=== PATIENT | male | born 1945 | race Caucasian/White ===

== ENCOUNTER → 2017-09-13 13:14 | Outpatient (CLI) | payer MEDICARE, SELFPAY ==
[2017-09-13 16:23] LABS: Absolute Neutrophil Count 2.1 X10^3/uL (2.0-7.7); Basophil# 0.02 X10^3/uL; Basophil% 0.5 % (0-1); Eosinophil# 0.11 X10^3/uL; Eosinophils% 2.6 % (0-5); Hematocrit 39.1 % (40-54); Lymphocyte % 36.1 % (19-41); Mean Corp Hgb Conc 33.2 g/gl (32-36); Mean Corpuscular Hgb 31.4 pg (27.0-32.0); Mean Corpuscular Volume 94.4 fL (80-94); Mean Platelet Vol. 10.9 fl (6.2-12.0); Monocyte# 0.45 X10^3/uL; Monocyte% 10.8 % (0-10); Neutrophil # 2.06 X10^3/uL (2.7-7.7); Neutrophil % 49.5 % (47-70); Platelet Count 165 K/mm3 (150-450); RBC Distribution Width SD 43.6 fl (35.1-43.9); Red Blood Count 4.14 M/mm3 (4.6-6.2); White Blood Count 4.2 K/mm3 (4.4-11.0)
[2017-09-13 16:32] LABS: POSITIVE COUNT NO; POSITIVE DIFFERENTIAL NO; POSITIVE MORPHOLOGY NO
[2017-09-13 16:43] LABS: AST(SGOT) 24 U/L (15-37); Alanine Aminotransfer ALT/SGPT 42 U/L (16-61); Albumin, Serum 3.7 g/dL (3.2-5.0); Alkaline Phosphatase 75 U/L (45-117); Anion Gap 9 (5-15); BUN 18 mg/dL (7-18); BUN/Creat Ratio 19.4 RATIO (10-20); Calcium,Total 8.8 mg/dL (8.5-10.1); Chloride 104 mmol/L (98-107); Creatinine, Serum 0.93 mg/dL (0.70-1.30); EST Glomerular Filtration Rate 86 mL/min (>60); Est Glom Filt Rate - Afr Amer 104 mL/min (>60); Globulin 3.6 g/dL (2.2-4.2); Glucose 85 mg/dL (74-106); Potassium 3.6 mmol/L (3.5-5.1); Protein, Total 7.3 g/dL (6.4-8.2); Sodium Level 140 mmol/L (136-145)
== END ==
PROVIDERS: Family Provider Family Medicine; PCP Family Medicine; Visit Provider Internal Medicine Rheumatology
DX: M06.012 Rheumatoid arthritis without rheumatoid factor, left shoulder (principal); M15.9 Polyosteoarthritis, unspecified; G56.01 Carpal tunnel syndrome, right upper limb; I48.0 Paroxysmal atrial fibrillation; M47.892 Other spondylosis, cervical region; M47.897 Other spondylosis, lumbosacral region; I87.2 Venous insufficiency (chronic) (peripheral); K21.9 Gastro-esophageal reflux disease without esophagitis; Z79.899 Other long term (current) drug therapy
CPT/HCPCS: 36415; 80053; 85025

== ENCOUNTER → 2017-12-07 11:22 | Outpatient (CLI) | payer MEDICARE, SELFPAY ==
[2017-12-07 14:11] LABS: Absolute Lymphocyte Count 1.62 X10^3/ul (0.83-4.51); Absolute Neutrophil Count 1.7 X10^3/uL (2.0-7.7); Basophil# 0.03 X10^3/uL; Basophil% 0.7 % (0-1); Eosinophil# 0.13 X10^3/uL; Eosinophils% 3.2 % (0-5); Hematocrit 38.4 % (40-54); Hemoglobin 12.5 g/dl (13.0-16.5); Lymphocyte # 1.62 X10^3/ul (4.0); Lymphocyte % 39.9 % (19-41); Mean Corp Hgb Conc 32.6 g/gl (32-36); Mean Corpuscular Hgb 30.3 pg (27.0-32.0); Mean Corpuscular Volume 93.2 fL (80-94); Monocyte# 0.58 X10^3/uL; Monocyte% 14.3 % (0-10); Neutrophil # 1.68 X10^3/uL (2.7-7.7); Neutrophil % 41.4 % (47-70); Platelet Count 185 K/mm3 (150-450); RBC Distribution Width CV 15.1 % (11.6-14.6); RBC Distribution Width SD 51.5 fl (35.1-43.9); Red Blood Count 4.12 M/mm3 (4.6-6.2); White Blood Count 4.1 K/mm3 (4.4-11.0)
[2017-12-07 14:12] LABS: POSITIVE COUNT NO; POSITIVE DIFFERENTIAL NO; POSITIVE MORPHOLOGY NO
[2017-12-07 14:34] LABS: ALB/GLOB Ratio 0.8 RATIO (0.9-2.4); AST(SGOT) 26 U/L (15-37); Alanine Aminotransfer ALT/SGPT 38 U/L (16-61); Albumin, Serum 3.4 g/dL (3.2-5.0); Alkaline Phosphatase 68 U/L (45-117); Anion Gap 9 (5-15); BUN 27 mg/dL (7-18); BUN/Creat Ratio 23.1 RATIO (10-20); Chloride 105 mmol/L (98-107); Creatinine, Serum 1.17 mg/dL (0.70-1.30); EST Glomerular Filtration Rate 65 mL/min (>60); Est Glom Filt Rate - Afr Amer 79 mL/min (>60); Globulin 4.4 g/dL (2.2-4.2); Glucose 113 mg/dL (74-106); Potassium 3.9 mmol/L (3.5-5.1); Protein, Total 7.8 g/dL (6.4-8.2); Sodium Level 139 mmol/L (136-145)
== END ==
PROVIDERS: Family Provider Family Medicine; PCP Family Medicine; Visit Provider Internal Medicine Rheumatology
DX: M06.00 Rheumatoid arthritis without rheumatoid factor, unspecified site (principal); G56.01 Carpal tunnel syndrome, right upper limb; I48.0 Paroxysmal atrial fibrillation; M47.892 Other spondylosis, cervical region; M47.897 Other spondylosis, lumbosacral region; I87.2 Venous insufficiency (chronic) (peripheral); M15.9 Polyosteoarthritis, unspecified; K21.9 Gastro-esophageal reflux disease without esophagitis; Z79.899 Other long term (current) drug therapy
CPT/HCPCS: 36415; 80053; 85025

== ENCOUNTER → 2018-02-24 11:19 | Outpatient (CLI) | payer MEDICARE, SELFPAY ==
[2018-02-24 14:30] LABS: Absolute Lymphocyte Count 1.51 X10^3/ul (0.83-4.51); Absolute Neutrophil Count 1.8 X10^3/uL (2.0-7.7); Basophil# 0.01 X10^3/uL; Basophil% 0.3 % (0-1); Eosinophil# 0.15 X10^3/uL; Eosinophils% 3.9 % (0-5); Hemoglobin 13.6 g/dl (13.0-16.5); Lymphocyte # 1.51 X10^3/ul (4.0); Lymphocyte % 39.1 % (19-41); Mean Corpuscular Hgb 32.8 pg (27.0-32.0); Mean Corpuscular Volume 96.4 fL (80-94); Mean Platelet Vol. 10.7 fl (6.2-12.0); Monocyte# 0.35 X10^3/uL; Monocyte% 9.1 % (0-10); Neutrophil % 46.6 % (47-70); POSITIVE COUNT NO; POSITIVE DIFFERENTIAL NO; POSITIVE MORPHOLOGY NO; Platelet Count 151 K/mm3 (150-450); RBC Distribution Width CV 13.8 % (11.6-14.6); RBC Distribution Width SD 46.7 fl (35.1-43.9); Red Blood Count 4.15 M/mm3 (4.6-6.2); White Blood Count 3.9 K/mm3 (4.4-11.0)
[2018-02-24 14:42] LABS: ALB/GLOB Ratio 0.9 RATIO (0.9-2.4); AST(SGOT) 32 U/L (15-37); Alanine Aminotransfer ALT/SGPT 44 U/L (16-61); Albumin, Serum 3.5 g/dL (3.2-5.0); Alkaline Phosphatase 59 U/L (45-117); Anion Gap 9 (5-15); BUN 21 mg/dL (7-18); BUN/Creat Ratio 21.1 RATIO (10-20); Calcium,Total 8.5 mg/dL (8.5-10.1); Chloride 108 mmol/L (98-107); Cholesterol 162 mg/dL (200); EST Glomerular Filtration Rate 79 mL/min (>60); Est Glom Filt Rate - Afr Amer 95 mL/min (>60); Globulin 4.1 g/dL (2.2-4.2); Glucose 110 mg/dL (74-106); High Density Lipoprotein 31 mg/dL; Potassium 3.9 mmol/L (3.5-5.1); Protein, Total 7.6 g/dL (6.4-8.2); Sodium Level 143 mmol/L (136-145); Triglycerides 147 mg/dL; Very Low Density Lipoprotein 29 mg/dL (5-40)
== END ==
PROVIDERS: Family Provider Family Medicine; PCP Family Medicine; Visit Provider Internal Medicine Rheumatology
DX: I10 Essential (primary) hypertension (principal); M06.00 Rheumatoid arthritis without rheumatoid factor, unspecified site; G56.01 Carpal tunnel syndrome, right upper limb; I48.0 Paroxysmal atrial fibrillation; I87.2 Venous insufficiency (chronic) (peripheral); M47.892 Other spondylosis, cervical region; M47.897 Other spondylosis, lumbosacral region; M15.9 Polyosteoarthritis, unspecified; K21.9 Gastro-esophageal reflux disease without esophagitis; Z79.899 Other long term (current) drug therapy
CPT/HCPCS: 36415; 80053; 80061; 85025

== ENCOUNTER → 2018-05-30 09:50 | Outpatient (CLI) | payer MEDICARE, SELFPAY ==
[2018-05-30 12:44] LABS: Absolute Lymphocyte Count 1.66 X10^3/ul (0.83-4.51); Absolute Neutrophil Count 1.9 X10^3/uL (2.0-7.7); Basophil# 0.01 X10^3/uL; Basophil% 0.2 % (0-1); Eosinophil# 0.11 X10^3/uL; Eosinophils% 2.7 % (0-5); Hematocrit 40.7 % (40-54); Hemoglobin 13.3 g/dl (13.0-16.5); Lymphocyte # 1.66 X10^3/ul (4.0); Lymphocyte % 41.3 % (19-41); Mean Corp Hgb Conc 32.7 g/gl (32-36); Mean Corpuscular Hgb 31.7 pg (27.0-32.0); Mean Corpuscular Volume 96.9 fL (80-94); Mean Platelet Vol. 10.4 fl (6.2-12.0); Monocyte# 0.36 X10^3/uL; Neutrophil # 1.86 X10^3/uL (2.7-7.7); Neutrophil % 46.3 % (47-70); POSITIVE COUNT NO; POSITIVE DIFFERENTIAL NO; POSITIVE MORPHOLOGY NO; Platelet Count 153 K/mm3 (150-450)
[2018-05-30 12:57] LABS: ALB/GLOB Ratio 0.9 RATIO (0.9-2.4); AST(SGOT) 27 U/L (15-37); Alanine Aminotransfer ALT/SGPT 45 U/L (16-61); Albumin, Serum 3.7 g/dL (3.2-5.0); Alkaline Phosphatase 65 U/L (45-117); Anion Gap 6 (5-15); BUN 21 mg/dL (7-18); BUN/Creat Ratio 20.2 RATIO (10-20); Calcium,Total 8.6 mg/dL (8.5-10.1); Chloride 106 mmol/L (98-107); Cholesterol 177 mg/dL (200); Creatinine, Serum 1.04 mg/dL (0.70-1.30); EST Glomerular Filtration Rate 75 mL/min (>60); Est Glom Filt Rate - Afr Amer 90 mL/min (>60); Glucose 129 mg/dL (74-106); High Density Lipoprotein 34 mg/dL; Protein, Total 7.7 g/dL (6.4-8.2); Sodium Level 141 mmol/L (136-145); Triglycerides 137 mg/dL; Very Low Density Lipoprotein 27 mg/dL (5-40)
--- OUTSIDE RECORDS SUMMARY | 2018-07-16 10:07 | XMS RPT_ITS ---
:1945 Author Organization OHIP Care Team Providers Name Role Phone PROVIDER, UNKNOWN Attending Unavailable PROVIDER, UNKNOWN Referring Unavailable Alex, Suraj Primary Care Unavailable Bebeto Harper Attending Unavailable PROVIDER, UNKNOWN Referring Unavailable Alex, Suraj Primary Care Unavailable PROVIDER, UNKNOWN Attending Unavailable PROVIDER, UNKNOWN Referring Unavailable Alex, Suraj Primary Care Unavailable Sosa Hook Attending Unavailable PROVIDER, UNKNOWN Referring Unavailable Alex, Suraj Primary Care Unavailable Vellanki, Trinh Attending Unavailable Vellanki, Trinh Referring Unavailable Alex, Suraj Primary Care Unavailable Vellanki, Trinh Attending Unavailable Vellanki, Trinh Referring Unavailable Alex, Suraj Primary Care Unavailable Vellanki, Trinh Attending Unavailable Alex, Suraj Primary Care Unavailable Vellanki, Trinh Attending Unavailable Vellanki, Trinh Referring Unavailable Alex, Suraj Primary Care Unavailable PROBLEMS PROBLEMS DATE TYPE CONDITION / CODE ATTENDING STATUS SOURCE 05/30/2018 Unknown I10 - Essential Kaleigh Peters (primary) [facility] hypertension / Hospital I10(ICD-10) Repository 05/30/2018 Unknown E78.5 - Vellanki, Active [place] Hyperlipidemia, [facility] unspecified / Hospital E78.5(ICD-10) Repository 05/30/2018 Unknown M06.00 - Rheumatoid Vellanki, Active [place] arthritis without [facility] rheumatoid factor, Hospital unspecified site / Repository M06.00(ICD-10) 05/30/2018 Unknown Z79.899 - Other long Vellanki, Active [place] term (current) drug [facility] therapy / Hospital Z79.899(ICD-10) Repository 05/30/2018 Unknown M15.9 - Vellanki, Active [place] Polyosteoarthritis, [facility] unspecified / Hospital M15.9(ICD-10) Repository 05/30/2018 Unknown G56.01 - Carpal Vellanki, Active [place] tunnel syndrome, [facility] right upper limb / Hospital G56.01(ICD-10) Repository 05/30/2018 Unknown K21.9 - Vellanki, Active [place] Gastro-esophageal [facility] reflux disease Hospital without esophagitis Repository / K21.9(ICD-10) 05/30/2018 Unknown I48.0 - Paroxysmal Vellanki, Active [place] atrial fibrillation [facility] / I48.0(ICD-10) Hospital Repository 05/30/2018 Unknown M47.892 - Other Vellanki, Active [place] spondylosis, [facility] cervical region / Hospital M47.892(ICD-10) Repository 05/30/2018 Unknown M47.897 - Other [place]ellanki, Active [place] spondylosis, [facility] lumbosacral region / Hospital M47.897(ICD-10) Repository 05/30/2018 Unknown I87.2 - Venous Vellanki, Active [place] insufficiency [facility] (chronic) Hospital (peripheral) / Repository I87.2(ICD-10) 03/24/2018 Admitting Presence of Sosa Hook Active [facility] Diagnosis artificial knee System joint, bilateral / Repository Z96.653(ICD-10) 03/24/2018 Admitting Localized swelling, Sosa Hook Active [facility] Diagnosis mass and lump, right System lower limb / Repository R22.41(ICD-10) 03/13/2018 Admitting Unspecified atrial Unknown Active [facility] Diagnosis fibrillation / System I48.91(ICD-10) Repository 03/13/2018 Admitting 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 Diagnosis arthritis, System unspecified / Repository M06.9(ICD-10) 03/13/2018 Admitting Sleep apnea, Unknown Active [facility] Diagnosis unspecified / System G47.30(ICD-10) Repository 03/13/2018 Admitting Nicotine dependence, Unknown Active [facility] Diagnosis cigarettes, System uncomplicated / Repository F17.210(ICD-10) 03/13/2018 Admitting Presence of Unknown Active [facility] Diagnosis artificial hip System joint, bilateral / Repository Z96.643(ICD-10) 03/13/2018 Admitting longterm (current) Unknown Active [facility] Diagnosis use of System anticoagulants / Repository Z79.01(ICD-10) 03/13/2018 Admitting Personal history of Unknown Active [facility] Diagnosis urinary calculi / System Z87.442(ICD-10) Repository 03/13/2018 Admitting Allergy status to Unknown Active [facility] Diagnosis narcotic agent System status / Repository Z88.5(ICD-10) 03/13/2018 Admitting Cellulitis of right Unknown Active [facility] Diagnosis lower limb / System L03.115(ICD-10) Repository 03/13/2018 Admitting Tinea pedis / Unknown Active [facility] Diagnosis B35.3(ICD-10) System Repository 03/13/2018 Admitting Spondylolysis, Unknown Active [facility] Diagnosis cervical region / System M43.02(ICD-10) Repository 03/13/2018 Admitting Nontoxic goiter, 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 / System E04.9(ICD-10) Repository 03/13/2018 Admitting Other straightener and aligner Unknown Active [facility] Diagnosis (current) drug System therapy / Repository Z79.899(ICD-10) 03/13/2018 Admitting longterm (current) Unknown Active [facility] Diagnosis use of non-steroidal System non-inflam (NSAID) / Repository Z79.1(ICD-10) 03/13/2018 Admitting Other seasonal Unknown Active [facility] Diagnosis allergic rhinitis / System J30.2(ICD-10) Repository 03/13/2018 Admitting Fever, unspecified / Unknown Active [facility] Diagnosis R50.9(ICD-10) System Repository 12/02/2017 Admitting Cellulitis of left Harper, Active [facility] Diagnosis lower limb / [place] System L03.116(ICD-10) Repository 12/02/2017 Admitting Other spondylosis, Harper, Active [facility] Diagnosis cervical region / Bebeto System M47.892(ICD-10) Repository 12/02/2017 Admitting Other nonmedicinal Harper, Active [facility] Diagnosis substance allergy Bebeto System status / Repository Z91.048(ICD-10) 12/02/2017 Admitting Pain in left leg / Harper, Active [facility] Diagnosis M79.605(ICD-10) B[place] System Repository 09/13/2017 Unknown M06.012 - Rheumatoid Vellanki, Active [place] arthritis without [facility] rheumatoid factor, Hospital left shoulder / Repository M06.012(ICD-10) 07/25/2017 Admitting Acute pyelonephritis Unknown Active [facility] Diagnosis / N10(ICD-10) System Repository 07/25/2017 Admitting Pulmonary Unknown Active [facility] Diagnosis hypertension, System unspecified / Repository I27.20(ICD-10) 07/25/2017 Admitting Nontoxic single Unknown Active [facility] Diagnosis thyroid nodule / System E04.1(ICD-10) Repository 07/25/2017 Admitting Unspecified Unknown Active [facility] Diagnosis abdominal pain / System R10.9(ICD-10) Repository PROCEDURES PROCEDURES No Procedure Records FoundRESULTS RESULTS CBC W/DIFF, AUTOMATED Collected: 05/30/2018 Status: F Source: [place] 9:57 AM [facility] REPOSITORY Order Comment: ORDERED CMP AND CBCD ORDERED CMP AND LIPID TYPE CODE TESTS RESULT OUT OF RANGE REFERENCE UNITS LAB L100.1000 4.4-11.0 K/mm3 Low WBC 4.0 LAB L100.1200 4.6-6.2 M/mm3 Low RBC 4.20 LAB L100.1300 13.0-16.5 g/dl Normal HGB 13.3 LAB L100.1400 40-54 % Normal HCT 40.7 LAB L100.1500 80-94 fL High MCV 96.9 LAB L100.1600 27.0-32.0 pg Normal MCH 31.7 LAB L100.1700 32-36 g/gl Normal MCHC 32.7 LAB L100.1810 11.6-14.6 % Normal RDW CV 13.0 LAB L100.1820 35.1-43.9 fl High RDW SD 45.0 LAB L100.1900 150-450 K/mm3 Normal PLT 153 LAB L100.2000 6.2-12.0 fl Normal MPV 10.4 LAB L100.2100 47-70 % Low NEUT% 46.3 LAB L100.2200 19-41 % High LY% 41.3 LAB L100.2300 0-10 % Normal MONO% 9.0 LAB L100.2400 0-5 % Normal EO% 2.7 LAB L100.2500 0-1 % Normal BASO% 0.2 LAB L100.2550 0.0-0.9 % Normal IM GRAN % 0.500 Result Comment: IG% - Immature Granulocytes (promyelocytes, myelocytes and metamyelocytes) > 1% indicates that a LEFT SHIFT is Present. LAB L100.2620 2.0-7.7 X10 3/uL Low Absolute Neut 1.9 LAB L100.2720 0.83-4.51 X10 3/ul Normal Absolute Lymph 1.66 Performed By: #### L100.0100 #### [facility] [place], [address] COMPREHENSIVE METABOLIC Collected: 05/30/2018 Status: F Source: [place] 9:57 AM [facility] REPOSITORY Order Comment: ORDERED CMP AND CBCD ORDERED CMP AND LIPID TYPE CODE TESTS RESULT OUT OF RANGE REFERENCE UNITS LAB L501.0100 74-106 mg/dL High GLU 129 Result Comment: Fasting Glucose result greater than or equal to 126 mg/dL suggests DIABETES MELLITUS per A.D.A. criteria. Please note revised GLUCOSE reference range effective 2017. LAB L501.1000 7-18 mg/dL High BUN 21 LAB L501.1100 0.70-1.30 mg/dL Normal CREAT,SERUM 1.04 Result Comment: The validity of the calculated GFR AND GFRAA in patients over 70 years has not been determined. Clinical correlation is essential. LAB L501.1110 >60 mL/min Normal EST GFR 75 Result Comment: Non- GFR Calc LAB L501.1115 >60 mL/min Normal EST GFR - AA 90 Result Comment: GFR Calc LAB L501.1300 10-20 RATIO High BUN/CRE 20.2 LAB L501.1500 6.4-8.2 g/dL T Normal PROT 7.7 LAB L501.1800 3.2-5.0 g/dL Normal ALB 3.7 LAB L501.1950 2.2-4.2 g/dL Normal GLOB 4.0 LAB L501.2000 0.9-2.4 RATIO Normal A/G 0.9 LAB L501.2200 8.5-10.1 mg/dL CA Normal 8.6 LAB L501.4100 15-37 U/L Normal AST 27 LAB L501.4305 45-117 U/L Normal ALK P 65 LAB L501.4405 16-61 U/L Normal ALT 45 LAB L501.4600 0.20-1.00 mg/dL T Normal BILI 0.40 LAB L501.5300 136-145 mmol/L NA Normal 141 LAB L501.5600 3.5-5.1 mmol/L K Normal 4.0 LAB L501.5900 98-107 mmol/L CL Normal 106 LAB L501.6100 21.0-32.0 mmol/L Normal CO2 29.0 LAB L501.6200 5-15 Normal GAP 6 Performed By: #### L500.4050, L500.4100 #### [facility] [address] [place], [place], [address] LIPID PROFILE Collected: 05/30/2018 Status: F Source: [place] 9:57 AM [facility] REPOSITORY Order Comment: ORDERED CMP AND CBCD ORDERED CMP AND LIPID TYPE CODE TESTS RESULT OUT OF RANGE REFERENCE UNITS LAB L501.4900 200 mg/dL Normal CHOL 177 Result Comment: <200 mg/dL Desirable 200-240 mg/dL Borderline >240 mg/dL High Risk LAB L501.5000 mg/dL Normal TRIG 137 Result Comment: The drugs N-Acetylcysteine and Metamizole may falsely depress this assay. Serum Triglycerides Reference Interval Normal <150 mg/dL Borderline high 150 - 199 mg/dL High 200 - 499 mg/dL Very High > or = 500 mg/dL LAB L501.6400 mg/dL Low HDL 34 Result Comment: The drugs N-Acetylcysteine and Metamizole may falsely depress this assay. Reference Range HDL <40 mg/dL Low HDL Cholesterol HDL >or= 60 mg/dL High HDL Cholesterol LAB L501.6500 0-130 mg/dL Normal LDL 116 LAB L501.6600 5-40 mg/dL Normal VLDL 27 Performed By: #### L500.4050, L500.4100 #### [facility] [address] [place], [address] VL VENOUS DUPLEX US Observed: 03/24/2018 Status: F Source: [place] LOWER EXT RIGHT 11:41 AM SYSTEM REPOSITORY Patient Name: MANISH LAMAS Ultrasound Exam Date/Time 03/24/2018 12:07:41 EDT Exam VL Venous Duplex US Lower Ext Right Ordering Physician GISSELLE HOOK HOLLY S Accession Number [id number] CPT4 Codes 67568 () Reason For Exam Swelling of right lower extremity (M79.89 [ICD-10-CM] 729.81 [ICD-9-CM]) Report [facility] --- Right Lower Extremity Venous Duplex Report Patient Name: Manish Lamas : 1945 Study Date: 03/24/2018 (72yrs) Age: 72 Account: [id number] Gender: M Loc: BP: Ordering: Sosa Hook Technologist: Ordering Physician: Sosa Hook Dye Blender: Yue Zavala RDMS [place] Interpreting Physician: Delmer Prince --- Location: [facility] --- INDICATIONS: Right lower extremity lump in posterior inferior calf x 2 weeks. Swelling of limb. --- Labs, prior tests, procedures, and surgery: RT and LT 2000. Left knee joint prosthesis. Right knee joint prosthesis. --- CONCLUSIONS 1. Normal venous duplex --- IMPRESSIONS: These findings are negative for deep or superficial vein thrombosis in the right lower extremity. --- HISTORY: Right lower extremity pain in mid calf to ankle x 2 weeks. Swelling of the right lower extremity in mid calf to ankle x 2 weeks. Redness of the right lower extremity in mid calf to ankle x 2 weeks. Risk factors: Current tobacco use. Obese. History of cellulitis. Most recent occurance was in left leg November 2017. --- STUDY DATA: Right lower extremity venous duplex evaluation. Birthdate: Patient birthdate: 1945. Age: Patient is 72 yr old. Sex: Gender: male. Ethnicity: Ethnicity: white. Doppler flow study including spectral analysis, color and justin scale imaging. Patient status: Outpatient. Procedure: A vascular evaluation was performed. The images were obtained using a [employer] vascular ultrasound machine. --- --- Findings: Patient on Vasiliy. VENOUS FLOW AND IMAGING: + +-------+ --+ !Location !Overall!Flow properties ! + +-------+ --+ !Right common femoral !Patent !Normal phasicity; spontaneous; normal ! ! ! !augmentation; compressible ! + +-------+ --+ !Right saphenofemoral junction!Patent !Compressible ! + +-------+ --+ !Right profunda femoral !Patent !Normal phasicity; spontaneous; normal ! ! ! !augmentation ! + +-------+ --+ !R femoral proximal !Patent !Compressible ! + +-------+ --+ !R femoral mid !Patent !Normal phasicity; spontaneous; normal ! ! ! !augmentation; compressible ! + +-------+ --+ !R femoral distal !Patent !Compressible ! + +-------+ --+ !Right popliteal !Patent !Normal phasicity; spontaneous; normal ! ! ! !augmentation; compressible ! + +-------+ --+ !Right gastrocnemius !Patent !Compressible ! + +-------+ --+ !Right posterior tibial !Patent !Compressible ! + +-------+ --+ !Right peroneal !Patent !Compressible ! + +-------+ --+ !Right soleal !Patent !Compressible ! + +-------+ --+ !Right greater saphenous !Patent !Compressible ! + +-------+ --+ !Right lesser saphenous !Patent !Compressible ! + +-------+ --+ !Left common femoral !Patent !Normal phasicity; spontaneous; normal ! ! ! !augmentation; compressible ! + +-------+ --+ Electronically signed by: Delmer Prince [id number] Final Dictated: 03/24/2018 1:46 pm Dictating Physician: DELMER PRINCE Signed Date and Time: 03/24/2018 1:46 pm Signed by: DELMER PRINCE HEMOGRAM W/ AUTODIFF Collected: 03/13/2018 Status: F Source: [place] 1:54 AM SYSTEM REPOSITORY TYPE CODE TESTS RESULT OUT OF REFERENCE UNITS RANGE LAB IWBC 3.6-10.7 10*3/uL WBC Normal 9.7 LAB RBC 4.40-5.90 10*6/uL Low RBC 4.14 LAB HGB 13.0-18.0 g/dL Hemoglobin Normal 13.5 LAB HCT 40.0-52.0 % Low Hematocrit 39.7 LAB MCV 80.0-98.0 fL MCV Normal 95.8 LAB MCH 26.0-34.0 pg MCH Normal 32.6 LAB MCHC 32.0-36.0 % MCHC Normal 34.1 LAB RDW 11.5-14.5 % RDW Normal 14.1 LAB PLT 140-440 10*3/uL Platelet Normal 154 LAB MPV 7.4-10.4 fL MPV Normal 8.4 LAB GRAN% 40.0-80.0 % Granulocytes Normal 77.0 LAB LYMP% 20.0-40.0 % Low Lymphocytes 12.5 LAB MONO% 2.0-10.0 % Monocytes Normal 8.6 LAB EOS% 1.0-6.0 % Eosinophils Normal 1.3 LAB BAS% 0.0-2.0 % Basophils Normal 0.6 LAB ANC 1.8-7.0 10*3/uL Abs High Neutrophile Cnt 7.5 LAB ALC 1.0-4.3 10*3/uL Abs Lymph Cnt Normal 1.2 LAB AMC 0.0-0.8 10*3/uL Abs Monocyte Normal Cnt 0.8 LAB AEC 0.0-0.5 10*3/uL Abs Eosin Cnt Normal 0.1 LAB ABC 0.0-0.2 10*3/uL Abs Baso Cnt Normal 0.1 Performed By: #### HEMDF, ESR, LACT3, BMP3 #### [facility] [address] [place] [address] SED RATE Collected: 03/13/2018 Status: F Source: [place] 1:54 AM SYSTEM REPOSITORY TYPE CODE TESTS RESULT OUT OF RANGE REFERENCE UNITS LAB ESR 0-10 mm/h High Sed Rate 17 Performed By: #### HEMDF, ESR, LACT3, BMP3 #### [facility] [address] [place] [address] LACTIC ACID Collected: 03/13/2018 Status: F Source: [place] 1:54 AM SYSTEM REPOSITORY TYPE CODE TESTS RESULT OUT OF RANGE REFERENCE UNITS LAB LACT3 0.7-2.0 mmol/L Normal Lactic Acid 1.6 Performed By: #### HEMDF, ESR, LACT3, BMP3 #### [facility] [address] [place] [address] BASIC METABOLIC PANEL Collected: 03/13/2018 Status: F Source: [place] 1:54 AM SYSTEM REPOSITORY TYPE CODE TESTS RESULT OUT OF RANGE REFERENCE UNITS LAB NA3 137-145 mmol/L Sodium Normal 139 LAB K3 3.5-5.1 mmol/L Normal Potassium 3.9 LAB CL3 98-107 mmol/L Chloride Normal 103 LAB CO23 22-30 mmol/L Carbon Normal Dioxide 25 LAB ANIN3 NA Anion Gap 12 LAB GLUC3 70-100 mg/dL High Glucose 121 LAB BUN3 7-20 mg/dL Urea Normal Nitrogen 18 LAB CRET3 0.52-1.25 mg/dL Normal Creatinine 0.91 LAB GF3BR >60 mL/min eGFR > 60.0 LAB GF3WR >60 mL/min eGFR OTHER > 60.0 Result Comment: Source- MDRD equation with creatinine calibration to IDMS(NKDEP) eGFR not recommended for drug dose adjustment LAB CA3 8.4-10.4 mg/dL Normal Calcium 9.3 Performed By: #### HEMDF, ESR, LACT3, BMP3 #### [facility] [address] [place] [address] URINALYSIS,MACRO Collected: 03/13/2018 Status: F Source: [place] 1:54 AM SYSTEM REPOSITORY TYPE CODE TESTS RESULT OUT OF REFERENCE UNITS RANGE LAB APPUR Clear NA Appearance CLEAR LAB COLUR Lt. Yellow NA Color YELLOW LAB USG 1.005-1.030 NA Specific Normal [place],Urine 1.015 LAB UPH 5.0-8.0 NA pH,Urine Normal 6.0 LAB ULUK Negative NA Leukocytes 3 + LAB UNIT Negative NA Nitrites NEGATIVE LAB UPRO Negative mg/dL Total Protein,Urine NEGATIVE LAB UGLU Negative mg/dL Glucose,Urine NEGATIVE LAB UKET Negative mg/dL Ketone,Urine NEGATIVE LAB UURO 0-1 mg/dL Urobilinogen 0.2 LAB UBIL Negative NA Bilirubin,Ur NEGATIVE LAB UBLD Negative {RBC}/uL Occult Blood,Ur 2 + Performed By: #### UAMAC, UAMIC #### [facility] [address] [place] [address] URINALYSIS,MICROSCOPIC Collected: Status: F Source: [facility] 03/13/2018 1:54 AM [facility] REPOSITORY TYPE CODE TESTS RESULT OUT OF REFERENCE UNITS RANGE LAB WBCU 0-5 /[HPF] WBC,Urine 26 - 50 LAB RBCU 0-2 /[HPF] RBC,Urine 11 - 25 LAB EPIU 3-5 /[HPF] Epithelial Cells 0 - 2 LAB JOHANNE Negative NA Bacteria Many (51-100) Performed By: #### UAMAC, UAMIC #### [facility] [address] [place] [address] Observed: 03/13/2018 Status: F Source: [facility] BLOOD 1:54 AM SYSTEM REPOSITORY Order Comment: Specimen Source Comment:Blood CULTURE BLOOD --> Status: F No growth at 5 days. Performed By: #### C/BLD #### [facility] [address] [id number] Observed: 03/13/2018 Status: F Source: [facility] BLOOD (TWO) 1:54 AM SYSTEM REPOSITORY Order Comment: Specimen Source Comment:Blood CULTURE BLOOD (Two) --> Status: F No growth at 5 days. Performed By: #### C/BLT #### [facility] [address] [place] [id number] CBC W/DIFF, AUTOMATED Collected: 02/24/2018 Status: F Source: [place] 11:25 AM [facility] REPOSITORY TYPE CODE TESTS RESULT OUT OF RANGE REFERENCE UNITS LAB L100.1000 4.4-11.0 K/mm3 Low WBC 3.9 LAB L100.1200 4.6-6.2 M/mm3 Low RBC 4.15 LAB L100.1300 13.0-16.5 g/dl Normal HGB 13.6 LAB L100.1400 40-54 % Normal HCT 40.0 LAB L100.1500 80-94 fL High MCV 96.4 LAB L100.1600 27.0-32.0 pg High MCH 32.8 LAB L100.1700 32-36 g/gl Normal MCHC 34.0 LAB L100.1810 11.6-14.6 % Normal RDW CV 13.8 LAB L100.1820 35.1-43.9 fl High RDW SD 46.7 LAB L100.1900 150-450 K/mm3 Normal PLT 151 LAB L100.2000 6.2-12.0 fl Normal MPV 10.7 LAB L100.2100 47-70 % Low NEUT% 46.6 LAB L100.2200 19-41 % Normal LY% 39.1 LAB L100.2300 0-10 % Normal MONO% 9.1 LAB L100.2400 0-5 % Normal EO% 3.9 LAB L100.2500 0-1 % Normal BASO% 0.3 LAB L100.2550 0.0-0.9 % High IM GRAN % 1.000 Result Comment: IG% - Immature Granulocytes (promyelocytes, myelocytes and metamyelocytes) > 1% indicates that a LEFT SHIFT is Present. LAB L100.2620 2.0-7.7 X10 3/uL Low Absolute Neut 1.8 LAB L100.2720 0.83-4.51 X10 3/ul Normal Absolute Lymph 1.51 Performed By: #### L100.0100 #### [facility] [address] [place], [place], [id number] COMPREHENSIVE METABOLIC Collected: 02/24/2018 Status: F Source: [place] 11:25 AM [facility] REPOSITORY Order Comment: DR ZAPIEN ORDERED LIPID/CMP DR PETERS ORDERED CMP/CBCD TYPE CODE TESTS RESULT OUT OF RANGE REFERENCE UNITS LAB L501.0100 74-106 mg/dL High GLU 110 Result Comment: Fasting Glucose result from 100 to 125 mg/dL suggests IMPAIRED HOMEOSTASIS per A.D.A. criteria. Please note revised GLUCOSE reference range effective 2017. LAB L501.1000 7-18 mg/dL High BUN 21 LAB L501.1100 0.70-1.30 mg/dL Normal CREAT,SERUM 1.00 Result Comment: The validity of the calculated GFR AND GFRAA in patients over 70 years has not been determined. Clinical correlation is essential. LAB L501.1110 >60 mL/min Normal EST GFR 79 Result Comment: Non- GFR Calc LAB L501.1115 >60 mL/min Normal EST GFR - AA 95 Result Comment: GFR Calc LAB L501.1300 10-20 RATIO High BUN/CRE 21.1 LAB L501.1500 6.4-8.2 g/dL T Normal PROT 7.6 LAB L501.1800 3.2-5.0 g/dL Normal ALB 3.5 LAB L501.1950 2.2-4.2 g/dL Normal GLOB 4.1 LAB L501.2000 0.9-2.4 RATIO Normal A/G 0.9 LAB L501.2200 8.5-10.1 mg/dL CA Normal 8.5 LAB L501.4100 15-37 U/L Normal AST 32 LAB L501.4305 45-117 U/L Normal ALK P 59 LAB L501.4405 16-61 U/L Normal ALT 44 LAB L501.4600 0.20-1.00 mg/dL T Normal BILI 0.30 LAB L501.5300 136-145 mmol/L NA Normal 143 LAB L501.5600 3.5-5.1 mmol/L K Normal 3.9 LAB L501.5900 98-107 mmol/L High CL 108 LAB L501.6100 21.0-32.0 mmol/L Normal CO2 26.0 LAB L501.6200 5-15 Normal GAP 9 Performed By: #### L500.4050, L500.4100 #### [facility] [address] [place], [address] LIPID PROFILE Collected: 02/24/2018 Status: F Source: [place] 11:25 AM [facility] REPOSITORY Order Comment: DR ZAPIEN ORDERED LIPID/CMP DR PETERS ORDERED CMP/CBCD TYPE CODE TESTS RESULT OUT OF RANGE REFERENCE UNITS LAB L501.4900 200 mg/dL Normal CHOL 162 Result Comment: <200 mg/dL Desirable 200-240 mg/dL Borderline >240 mg/dL High Risk LAB L501.5000 mg/dL Normal TRIG 147 Result Comment: The drugs N-Acetylcysteine and Metamizole may falsely depress this assay. Serum Triglycerides Reference Interval Normal <150 mg/dL Borderline high 150 - 199 mg/dL High 200 - 499 mg/dL Very High > or = 500 mg/dL LAB L501.6400 mg/dL Low HDL 31 Result Comment: The drugs N-Acetylcysteine and Metamizole may falsely depress this assay. Reference Range HDL <40 mg/dL Low HDL Cholesterol HDL >or= 60 mg/dL High HDL Cholesterol LAB L501.6500 0-130 mg/dL Normal LDL 102 LAB L501.6600 5-40 mg/dL Normal VLDL 29 Performed By: #### L500.4050, L500.4100 #### [facility] [address] [place], [address] CBC W/DIFF, AUTOMATED Collected: 12/07/2017 Status: F Source: [place] 11:33 AM [facility] REPOSITORY TYPE CODE TESTS RESULT OUT OF RANGE REFERENCE UNITS LAB L100.1000 4.4-11.0 K/mm3 Low WBC 4.1 LAB L100.1200 4.6-6.2 M/mm3 Low RBC 4.12 LAB L100.1300 13.0-16.5 g/dl Low HGB 12.5 LAB L100.1400 40-54 % Low HCT 38.4 LAB L100.1500 80-94 fL Normal MCV 93.2 LAB L100.1600 27.0-32.0 pg Normal MCH 30.3 LAB L100.1700 32-36 g/gl Normal MCHC 32.6 LAB L100.1810 11.6-14.6 % High RDW CV 15.1 LAB L100.1820 35.1-43.9 fl High RDW SD 51.5 LAB L100.1900 150-450 K/mm3 Normal PLT 185 LAB L100.2000 6.2-12.0 fl Normal MPV 10.0 LAB L100.2100 47-70 % Low NEUT% 41.4 LAB L100.2200 19-41 % Normal LY% 39.9 LAB L100.2300 0-10 % High MONO% 14.3 LAB L100.2400 0-5 % Normal EO% 3.2 LAB L100.2500 0-1 % Normal BASO% 0.7 LAB L100.2550 0.0-0.9 % Normal IM GRAN % 0.500 Result Comment: IG% - Immature Granulocytes (promyelocytes, myelocytes and metamyelocytes) > 1% indicates that a LEFT SHIFT is Present. LAB L100.2620 2.0-7.7 X10 3/uL Low Absolute Neut 1.7 LAB L100.2720 0.83-4.51 X10 3/ul Normal Absolute Lymph 1.62 Performed By: #### L100.0100 #### [facility] [address] [place], [address] COMPREHENSIVE METABOLIC Collected: 12/07/2017 Status: F Source: [facility] 11:33 AM [facility] REPOSITORY TYPE CODE TESTS RESULT OUT OF RANGE REFERENCE UNITS LAB L501.0100 74-106 mg/dL High GLU 113 Result Comment: Fasting Glucose result from 100 to 125 mg/dL suggests IMPAIRED HOMEOSTASIS per A.D.A. criteria. Please note revised GLUCOSE reference range effective 2017. LAB L501.1000 7-18 mg/dL High BUN 27 LAB L501.1100 0.70-1.30 mg/dL Normal CREAT,SERUM 1.17 Result Comment: The validity of the calculated GFR AND GFRAA in patients over 70 years has not been determined. Clinical correlation is essential. LAB L501.1110 >60 mL/min Normal EST GFR 65 Result Comment: Non- GFR Calc LAB L501.1115 >60 mL/min Normal EST GFR - AA 79 Result Comment: GFR Calc LAB L501.1300 10-20 RATIO High BUN/CRE 23.1 LAB L501.1500 6.4-8.2 g/dL T Normal PROT 7.8 LAB L501.1800 3.2-5.0 g/dL Normal ALB 3.4 LAB L501.1950 2.2-4.2 g/dL High GLOB 4.4 LAB L501.2000 0.9-2.4 RATIO Low A/G 0.8 LAB L501.2200 8.5-10.1 mg/dL CA Normal 9.0 LAB L501.4100 15-37 U/L Normal AST 26 LAB L501.4305 45-117 U/L Normal ALK P 68 LAB L501.4405 16-61 U/L Normal ALT 38 LAB L501.4600 0.20-1.00 mg/dL T Normal BILI 0.30 LAB L501.5300 136-145 mmol/L NA Normal 139 LAB L501.5600 3.5-5.1 mmol/L K Normal 3.9 LAB L501.5900 98-107 mmol/L CL Normal 105 LAB L501.6100 21.0-32.0 mmol/L Normal CO2 25.0 LAB L501.6200 5-15 Normal GAP 9 Performed By: #### L500.4050 #### [facility] [address] [place] [address]. [place], [place], [address] CR TIBIA/FIBULA 2 VIEWS Observed: 12/03/2017 Status: F Source: [facility] LEFT 1:27 AM SYSTEM REPOSITORY Patient Name: MANISH LAMAS Diagnostic Radiology Exam Date/Time 12/03/2017 01:00:03 EDT Exam CR Tibia/Fibula 2 Views Left Ordering Physician DO HARPER DAVID C Accession Number [id number] CPT4 Codes 41034 () Reason For Exam pain Report LEFT TIBIA AND FIBULA CLINICAL INDICATION: Pain and swelling AP and lateral plain film views of the left tibia and fibula were obtained. COMPARISON: None FINDINGS: No fracture or dislocation of the left tibia or fibula is identified. A left total knee arthroplasty is noted, which appears grossly unremarkable. No bony erosion or aggressive periosteal reaction is seen. No focal soft tissue swelling is identified. IMPRESSION: No acute bony abnormality of the left tibia or fibula is seen. Report Dictated on Workstation: [id number] Final Dictating Physician: ZACHARY HOLLOWAY Signed Date and Time: 12/03/2017 1:27 am Signed by: ZACHARY HOLLOWAY Transcribed Date and Time: 12/03/2017 1:28 URINALYSIS,MACRO Collected: 12/03/2017 Status: F Source: [facility] 12:48 AM SYSTEM REPOSITORY TYPE CODE TESTS RESULT OUT OF REFERENCE UNITS RANGE LAB APPUR Clear NA Appearance CLEAR LAB COLUR Lt. Yellow NA Color YELLOW LAB USG 1.005-1.030 NA Specific Normal [place],Urine 1.025 LAB UPH 5.0-8.0 NA pH,Urine Normal 6.0 LAB ULUK Negative NA Leukocytes 1 + LAB UNIT Negative NA Nitrites NEGATIVE LAB UPRO Negative mg/dL Total Protein,Urine NEGATIVE LAB UGLU Negative mg/dL Glucose,Urine NEGATIVE LAB UKET Negative mg/dL Ketone,Urine TRACE LAB UURO 0-1 mg/dL Urobilinogen 0.2 LAB UBIL Negative NA Bilirubin,Ur NEGATIVE LAB UBLD Negative {RBC}/uL Occult Blood,Ur 3 + Performed By: #### UAMAC, UAMIC #### [facility] [address] [place] [address] URINALYSIS,MICROSCOPIC Collected: Status: F Source: [facility] 12/03/2017 12:48 AM HEALTH SYSTEM REPOSITORY TYPE CODE TESTS RESULT OUT OF REFERENCE UNITS RANGE LAB VOLUR NA 12 Volume,Urine ml LAB WBCU 0-5 /[HPF] 11 WBC,Urine - 25 LAB RBCU 0-2 /[HPF] 26 RBC,Urine - 50 LAB EPIU 3-5 /[HPF] Epithelial Cells Negative LAB JOHANNE Negative NA Bacteria Moderate (6-50) LAB MUC Negative NA Mucous Threads Few Performed By: #### UAMAC, UAMIC #### [facility] [address] [place] [address] Observed: 12/03/2017 Status: F Source: [facility] CULTURE URINE 12:48 AM SYSTEM REPOSITORY Order Comment: Specimen Source Comment:Urine, clean catch CULTURE URINE --> Status: F Insignificant growth based on current clinical guidelines. Performed By: #### C/UR #### [facility] [address] [place] [id number] HEMOGRAM W/ AUTODIFF Collected: 12/03/2017 Status: F Source: [facility] 12:43 AM SYSTEM REPOSITORY TYPE CODE TESTS RESULT OUT OF REFERENCE UNITS RANGE LAB IWBC 3.6-10.7 10*3/uL WBC Normal 9.2 LAB RBC 4.40-5.90 10*6/uL Low RBC 4.03 LAB HGB 13.0-18.0 g/dL Low Hemoglobin 12.7 LAB HCT 40.0-52.0 % Low Hematocrit 37.3 LAB MCV 80.0-98.0 fL MCV Normal 92.6 LAB MCH 26.0-34.0 pg MCH Normal 31.4 LAB MCHC 32.0-36.0 % MCHC Normal 33.9 LAB RDW 11.5-14.5 % RDW High 15.9 LAB PLT 140-440 10*3/uL Low Platelet 139 LAB MPV 7.4-10.4 fL MPV Normal 8.2 LAB GRAN% 40.0-80.0 % Granulocytes Normal 74.1 LAB LYMP% 20.0-40.0 % Low Lymphocytes 14.2 LAB MONO% 2.0-10.0 % Monocytes High 10.2 LAB EOS% 1.0-6.0 % Eosinophils Normal 1.0 LAB BAS% 0.0-2.0 % Basophils Normal 0.5 LAB ANC 1.8-7.0 10*3/uL Abs Normal Neutrophile Cnt 6.8 LAB ALC 1.0-4.3 10*3/uL Abs Lymph Cnt Normal 1.3 LAB AMC 0.0-0.8 10*3/uL Abs Monocyte High Cnt 0.9 LAB AEC 0.0-0.5 10*3/uL Abs Eosin Cnt Normal 0.1 LAB ABC 0.0-0.2 10*3/uL Abs Baso Cnt Normal 0.0 Performed By: #### HEMDF, LACT3, PT, BNP3, CMP3, CRP2 #### [facility] [address] [place] [address] LACTIC ACID Collected: 12/03/2017 Status: F Source: [facility] 12:43 AM SYSTEM REPOSITORY TYPE CODE TESTS RESULT OUT OF RANGE REFERENCE UNITS LAB LACT3 0.7-2.0 mmol/L Normal Lactic Acid 1.5 Performed By: #### HEMDF, LACT3, PT, BNP3, CMP3, CRP2 #### [facility] [address] [place] [address] PROTHROMBIN TIME Collected: 12/03/2017 Status: F Source: [facility] 12:43 AM SYSTEM REPOSITORY TYPE CODE TESTS RESULT OUT OF REFERENCE UNITS RANGE LAB PROTM 9.0-12.0 s Prothrombin Normal Time 10.7 Result Comment: . LAB INR 0.9-1.1 NA Normal INR 1.0 Result Comment: Recommended Anticoagulant Therapy: SEE BELOW ----- INR of 2.0 - 3.0 : - Prophylaxis of Venous Thrombosis (high-risk surgery) - Treatment of Venous Thrombosis - Treatment of Pulmonary Embolism (Includes tissue heart valves, Acute Myocardial Infarction to prevent systemic embolism, Valvular Heart Disease, and Atrial Fibrillation) ----- INR of 2.5 - 3.5 : - Mechanical Prosthetic Valves (high risk) - If oral anticoagulant therapy is used to prevent Myocardial Infarction Performed By: #### HEMDF, LACT3, PT, BNP3, CMP3, CRP2 #### [facility] [address] [place] [address] NT PRO BNP Collected: 12/03/2017 Status: F Source: [facility] 12:43 AM SYSTEM REPOSITORY TYPE CODE TESTS RESULT OUT OF RANGE REFERENCE UNITS LAB BNP3 0-125 pg/mL Normal NT pro 66 BNP Performed By: #### HEMDF, LACT3, PT, BNP3, CMP3, CRP2 #### [facility] [address] [place] [address] COMP METABOLIC PANEL Collected: 12/03/2017 Status: F Source: [facility] 12:43 AM SYSTEM REPOSITORY TYPE CODE TESTS RESULT OUT OF RANGE REFERENCE UNITS LAB NA3 137-145 mmol/L Low Sodium 133 LAB K3 3.5-5.1 mmol/L Normal Potassium 3.5 LAB CL3 98-107 mmol/L Chloride Normal 104 LAB CO23 22-30 mmol/L Carbon Normal Dioxide 23 LAB ANIN3 NA Anion Gap 6 LAB GLUC3 70-100 mg/dL High Glucose 136 LAB BUN3 7-20 mg/dL Urea Normal Nitrogen 16 LAB CRET3 0.52-1.25 mg/dL Normal Creatinine 0.95 LAB GF3BR >60 mL/min eGFR > 60.0 LAB GF3WR >60 mL/min eGFR OTHER > 60.0 Result Comment: Source- MDRD equation with creatinine calibration to IDMS(NKDEP) eGFR not recommended for drug dose adjustment LAB CA3 8.4-10.2 mg/dL Calcium Normal 8.8 LAB ALB3 3.5-5.0 g/dL Albumin, Serum Normal 4.0 LAB TP3 6.3-8.2 g/dL Total Protein Normal 7.1 LAB BILT3 0.2-1.3 mg/dL Normal Bilirubin,Total 0.4 LAB ALKP3 38-126 U/L Alkaline Normal Phosphatase 61 LAB ALT3 13-69 U/L ALT (SGPT) Normal 40 LAB AST3 15-46 U/L AST (SGOT) Normal 21 Performed By: #### HEMDF, LACT3, PT, BNP3, CMP3, CRP2 #### [facility] [address] [place] [address] C-REACTIVE PROTEIN Collected: 12/03/2017 Status: F Source: [facility] 12:43 AM SYSTEM REPOSITORY TYPE CODE TESTS RESULT OUT OF REFERENCE UNITS RANGE LAB 2CRP 0.0-6.0 mg/L High C-Reactive 52.1 Protein Result Comment: . Performed By: #### HEMDF, LACT3, PT, BNP3, CMP3, CRP2 #### [facility] [address] [place] [address] CBC W/DIFF, AUTOMATED Collected: 09/13/2017 Status: F Source: [place] 1:37 PM [facility] REPOSITORY TYPE CODE TESTS RESULT OUT OF RANGE REFERENCE UNITS LAB L100.1000 4.4-11.0 K/mm3 Low WBC 4.2 LAB L100.1200 4.6-6.2 M/mm3 Low RBC 4.14 LAB L100.1300 13.0-16.5 g/dl Normal HGB 13.0 LAB L100.1400 40-54 % Low HCT 39.1 LAB L100.1500 80-94 fL High MCV 94.4 LAB L100.1600 27.0-32.0 pg Normal MCH 31.4 LAB L100.1700 32-36 g/gl Normal MCHC 33.2 LAB L100.1810 11.6-14.6 % Normal RDW CV 13.0 LAB L100.1820 35.1-43.9 fl Normal RDW SD 43.6 LAB L100.1900 150-450 K/mm3 Normal PLT 165 LAB L100.2000 6.2-12.0 fl Normal MPV 10.9 LAB L100.2100 47-70 % Normal NEUT% 49.5 LAB L100.2200 19-41 % Normal LY% 36.1 LAB L100.2300 0-10 % High MONO% 10.8 LAB L100.2400 0-5 % Normal EO% 2.6 LAB L100.2500 0-1 % Normal BASO% 0.5 LAB L100.2550 0.0-0.9 % Normal IM GRAN % 0.500 Result Comment: IG% - Immature Granulocytes (promyelocytes, myelocytes and metamyelocytes) > 1% indicates that a LEFT SHIFT is Present. LAB L100.2620 2.0-7.7 X10 3/uL Normal Absolute Neut 2.1 LAB L100.2720 0.83-4.51 X10 3/ul Normal Absolute Lymph 1.50 Performed By: #### L100.0100 #### [facility] [address] [place], [address] COMPREHENSIVE METABOLIC Collected: 09/13/2017 Status: F Source: [facility] 1:37 PM [facility] REPOSITORY TYPE CODE TESTS RESULT OUT OF RANGE REFERENCE UNITS LAB L501.0100 74-106 mg/dL Normal GLU 85 Result Comment: Please note revised GLUCOSE reference range effective 2017. LAB L501.1000 7-18 mg/dL Normal BUN 18 LAB L501.1100 0.70-1.30 mg/dL Normal CREAT,SERUM 0.93 Result Comment: The validity of the calculated GFR AND GFRAA in patients over 70 years has not been determined. Clinical correlation is essential. LAB L501.1110 >60 mL/min Normal EST GFR 86 Result Comment: Non- GFR Calc LAB L501.1115 >60 mL/min Normal EST GFR - AA 104 Result Comment: GFR Calc LAB L501.1300 10-20 RATIO Normal BUN/CRE 19.4 LAB L501.1500 6.4-8.2 g/dL T Normal PROT 7.3 LAB L501.1800 3.2-5.0 g/dL Normal ALB 3.7 LAB L501.1950 2.2-4.2 g/dL Normal GLOB 3.6 LAB L501.2000 0.9-2.4 RATIO Normal A/G 1.0 LAB L501.2200 8.5-10.1 mg/dL CA Normal 8.8 LAB L501.4100 15-37 U/L Normal AST 24 LAB L501.4305 45-117 U/L Normal ALK P 75 LAB L501.4405 16-61 U/L Normal ALT 42 Result Comment: Please note revised ALT reference range effective 2017. LAB L501.4600 0.20-1.00 mg/dL Normal T BILI 0.40 LAB L501.5300 136-145 mmol/L Normal NA 140 LAB L501.5600 3.5-5.1 mmol/L Normal K 3.6 LAB L501.5900 98-107 mmol/L Normal CL 104 LAB L501.6100 21.0-32.0 mmol/L Normal CO2 27.0 LAB L501.6200 5-15 Normal GAP 9 Performed By: #### L500.4050 #### [facility] [address] [place], [address] CTA ABDOMEN/PELVIS W/ + Observed: 07/25/2017 Status: F Source: [facility] W/O CONTRAST 11:44 AM SYSTEM REPOSITORY Patient Name: MANISH LAMAS CT Exam Date/Time 07/25/2017 11:36:02 EST Exam CTA Abdomen/Pelvis w/ + w/o contrast Ordering Physician MD MAHSA, [facility] Accession Number [id number] CPT4 Codes Q9967 (), 58464 () Reason For Exam abdominal pain ,a fib r/o mesenteric ischhemia Report CT ANGIOGRAPHY ABDOMEN AND PELVIS: CLINICAL INDICATION: Abdominal pain, atrial fibrillation TECHNIQUE: Transaxial sequence was performed through the abdomen and pelvis during dynamic intravenous infusion of 75 mL of nonionic contrast media, injected at a high flow rate following a precision aircraft systems assembler study. Multiplanar and 3D MIP reconstruction was performed concurrently with independent viewing software. COMPARISON: 09/21/2015 FINDINGS: Inferior chest: Stable left chest wall and left pleural masses. There is subsegmental atelectasis within the left lower lobe adjacent to the mass. No consolidation. Calcified nodule in the lingula. Liver: The liver is diffusely hypodense related to hepatic steatosis.. No focal lesion. Biliary tree: No biliary dilatation. Multiple gallstones are seen within a nondistended gallbladder. Spleen: Calcifications are seen. Adrenals: Normal. Pancreas: Normal. Kidneys: Symmetric contrast excretion without evidence of hydronephrosis. Multiple nonobstructive bilateral renal calculi are seen No focal renal lesion is identified. Free fluid: None. Retroperitoneal/mesenteric lymphadenopathy: None. Bowel: No dilatation is noted. Diverticuli are noted throughout the sigmoid colon. No stenotic lesion, mucosal thickening or adjacent fat stranding is noted to suggest diverticulitis. Abdominal wall: There is a fat-containing ventral hernia. Pelvic organs/viscera: Evaluation of the pelvis is somewhat limited due to streak artifact from bilateral hip arthroplasties. Calcifications can be identified within the prostate. No mass identified. Pelvic lymphadenopathy: None. Osseous structures: Degenerative changes are seen in the spine. Status post bilateral total hip arthroplasty. Vascular structures: Mild atherosclerotic calcifications are seen within the abdominal aorta and its branches. The aorta is normal in caliber. There is ectasia of the right common iliac artery measuring 20 mm in diameter and of the left common iliac artery measuring 16 mm in diameter. The celiac artery, superior mesenteric artery, single bilateral renal, bilateral common and iliac, internal and external iliac arteries are all patent. IMPRESSION: 1. No evidence of arterial occlusion. 2. 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 3. Nonobstructive bilateral renal calculi. 4. Cholecystolithiasis. 5. Stable chest masses. Report Dictated on Final Dictating Physician: MD GONZALEZ NICHOLAS Signed Date and Time: 07/25/2017 12:05 pm Signed by: MD GONZALEZ NICHOLAS Transcribed Date and Time: 07/25/2017 12:06 Observed: 07/25/2017 Status: F Source: [facility] BLOOD 11:02 AM SYSTEM REPOSITORY Specimen Source Comment:Blood [facility] Patient name: MANISH LAMAS Jorge LuisR.N.: [id number] : 1945 Age: 71 Sex: M Ord. Physician: OMER BRAGG Location: [place] [address] Copy to: OMER BRAGG DISCHARGED: 07/25/17 Adm. Date: 07/25/17 MICROBIOLOGY ORDER#: [id number] COLLECTED: 07/25/17 11:02 SOURCE: Blood (Site Unknown) RECEIVED: 07/25/17 11:08 DEE DEE Gonzales Specimen Source Comment:Blood CULTURE BLOOD FINAL 07/30/17 17:06 07/30/17 No growth at 5 days. Performed By: #### C/MARIO #### [place] [address] Observed: 07/25/2017 Status: F Source: [facility] CULTURE BLOOD 10:47 AM SYSTEM REPOSITORY Specimen Source Comment:Blood [facility] Patient name: MANISH LAMAS.N.: [id number] : 1945 Age: 71 Sex: M Ord. Physician: OMER BRAGG Location: [place] [address] Copy to: OMER BRAGG DISCHARGED: 07/25/17 Adm. Date: 07/25/17 MICROBIOLOGY ORDER#: [id number] COLLECTED: 07/25/17 10:47 SOURCE: Blood (Site Unknown) RECEIVED: 07/25/17 10:52 DEE DEE Gonzales Specimen Source Comment:Blood CULTURE BLOOD FINAL 07/30/17 17:06 07/30/17 No growth at 5 days. Performed By: #### C/MARIO #### [place] [address] Observed: 07/25/2017 Status: F Source: [facility] CULTURE URINE 9:33 AM SYSTEM REPOSITORY Specimen Source Comment:Urine, clean catch [facility] Patient name: MANISH LAMASN.: [id number] : 1945 Age: 71 Sex: M Ord. Physician: OMER BRAGG Location: Copy to: BRAGG, MOER DISCHARGED: 07/25/17 Adm. Date: 07/25/17 MICROBIOLOGY ORDER#: [id number] COLLECTED: 07/25/17 09:33 SOURCE: Urine RECEIVED: 07/25/17 09:40 OE C O M M E N T S Specimen Source Comment:Urine, clean catch CULTURE URINE FINAL 07/27/17 15:02 07/27/17 Normal urogenital caden present. Performed By: #### C/UR #### [address] [address] ALLERGIES ALLERGIES DATE TYPE / CODE NAME / CODE REACTION SEVERITY SOURCE 02/22/2014 Drug hydrocodone Other Unknown [place] Allergy/416 bitartrate/[id number] Community [id number]([facility] 555(RXNORM) [facility] ED [place]) Repository ENCOUNTERS ENCOUNTERS ADMIT/DISCHARGE ACCOUNT NUMBER ADMITTING ENCOUNTER LOCATION SOURCE CLASS 05/30/2018 [id number] [facility] ding:MTLAB Repository 03/24/2018 [id number] [facility] Repository 03/13/2018 [id number] [facility] [place] [address] EDRoom: System [id number]: Repository [id number] 02/24/2018 [id number] [facility] ding:MTLAB Repository 12/07/2017 [id number] [facility] ding:MTLAB Repository 12/02/2017 [id number] [facility] [place] [address] EDRoom: System [id number]: Repository [id number] 09/13/2017 [id number] [facility] ding:MTLAB Repository 07/25/2017 [id number] [facility] [place] [address] EDRoom: System [id number]: Repository [id number] PAYERS PAYERS ENCOUNTER GUARANTOR PAYER SUBSCRIBER SOURCE 05/30/2018 MANISH R Primary Insurance:AETNA MANISH Nicho [place] [address] MCRPolicy Number: MORRISDOB: Community ADI MEBGNWQMEffective [id number], [place] Date:4415-43-49GY BOX Repository [address]Viy: [phone] [place], [place] [phone] (HP) [phone]: 05/30/2018 Secondary NOT GIVENUNK [place] Insurance:SELF PAY Community INSURANCEPolicy Number: Hospital Effective Repository Date:2018-05-30 03/24/2018 Manish R Primary Manish Torre deltaDNA Tappx EdgemontDOB: Insurance:AetnaPolicy MorrisDOB: System S Number: Effective Date: [id number] Repository [place], [place] [address]Ita: () 03/13/2018 Manish R Primary Manish Torre [facility] Tappx EdgemontDOB: Insurance:AetnaPolicy MorrisDOB: System S Number: Effective Date: [id number] [place], [place] [address]Rnl: () 02/24/2018 MANISH R Primary Insurance:AETNA MANISH Torre [place]ana [id number] MCRPolicy Number: MORRISDOB: Community ADI HARRYBGNWQMEffective [id number], [place] Date:6787-06-62NQ BOX Repository [address]Xlz: [phone], [place] [phone] (HP) [phone]: 02/24/2018 Secondary NOT GIVENUNK [place] Insurance:SELF PAY Community INSURANCEPolicy Number: Hospital Effective Repository Date:2018-02-24 12/07/2017 Manish R Primary Insurance:AETNA Manish Nicho Lamas[address] MCRPolicy Number: MorrisDOB: Community [place] BGNWQMEffective [id number], [place] Date:8793-81-61NO BOX Repository [address]Wxg: [phone] [place], [place] [phone] (HP) [phone]: 12/07/2017 Secondary NOT GIVENUNK [place] Insurance:SELF PAY Community INSURANCEPolicy Number: Hospital Effective Repository Date:2017-12-07 12/02/2017 Manish Torre Primary Manish [address] [facility] MorrisDOB: Insurance:AetnaPolicy MorrisDOB: System S Number: Effective Date: [id number] Repository [place], [place] [address]Vsw: (HP) 09/13/2017 Manish Torre Primary Insurance:AETNA Manish Torre [place] [id number] MCRPolicy Number: MorrisDOB: [facility] MEBGNWQMEffective [id number], [place] Date:2696-70-57QT BOX Repository [address]Dyb: [id number] [place] [phone]: [phone] (HP) [phone] 09/13/2017 Secondary NOT GIVENUNK [place] Insurance:SELF PAY Community INSURANCEPolicy Number: Hospital Effective Repository Date:2017-09-13 07/25/2017 Manish Torre Primary Manish Tor[address] [facility] MorrisDOB: Insurance:AetnaPolicy MorrisDOB: System S Number: Effective Date: [id number] Repository [place], [place] [address]Gqh: (HP)
== END ==
PROVIDERS: Family Provider Family Medicine; PCP Family Medicine; Referring Provider Internal Medicine Rheumatology; Visit Provider Internal Medicine Rheumatology
DX: M06.00 Rheumatoid arthritis without rheumatoid factor, unspecified site (principal); I10 Essential (primary) hypertension; E78.5 Hyperlipidemia, unspecified; M15.9 Polyosteoarthritis, unspecified; G56.01 Carpal tunnel syndrome, right upper limb; K21.9 Gastro-esophageal reflux disease without esophagitis; I48.0 Paroxysmal atrial fibrillation; M47.892 Other spondylosis, cervical region; M47.897 Other spondylosis, lumbosacral region; I87.2 Venous insufficiency (chronic) (peripheral); Z79.899 Other long term (current) drug therapy
CPT/HCPCS: 36415; 80053; 80061; 85025

== ENCOUNTER → 2018-07-24 16:54 | Outpatient (CLI) | payer MEDICARE, SELFPAY | PROVIDERS: Family Provider Family Medicine; PCP Family Medicine; Referring Provider Otolaryngology; Visit Provider Otolaryngology | DX: J02.9 Acute pharyngitis, unspecified (principal) | CPT/HCPCS: 87070; 87077; 87186; 87205 ==

== ENCOUNTER → 2018-09-04 12:02 | Outpatient (CLI) | payer MEDICARE, SELFPAY ==
[2018-09-04 14:03] LABS: Absolute Lymphocyte Count 1.56 X10^3/ul (0.83-4.51); Absolute Neutrophil Count 1.6 X10^3/uL (2.0-7.7); Basophil# 0.02 X10^3/uL; Basophil% 0.5 % (0-1); Eosinophil# 0.09 X10^3/uL; Eosinophils% 2.4 % (0-5); Hemoglobin 13.3 g/dl (13.0-16.5); Lymphocyte # 1.56 X10^3/ul (4.0); Lymphocyte % 42.3 % (19-41); Mean Corp Hgb Conc 32.4 g/gl (32-36); Mean Corpuscular Hgb 30.5 pg (27.0-32.0); Mean Platelet Vol. 10.5 fl (6.2-12.0); Monocyte# 0.43 X10^3/uL; Monocyte% 11.7 % (0-10); Neutrophil # 1.56 X10^3/uL (2.7-7.7); Neutrophil % 42.3 % (47-70); Platelet Count 150 K/mm3 (150-450); RBC Distribution Width CV 13.9 % (11.6-14.6); RBC Distribution Width SD 45.6 fl (35.1-43.9); Red Blood Count 4.36 M/mm3 (4.6-6.2); White Blood Count 3.7 K/mm3 (4.4-11.0)
[2018-09-04 14:06] LABS: POSITIVE COUNT NO; POSITIVE DIFFERENTIAL NO; POSITIVE MORPHOLOGY NO
[2018-09-04 14:10] LABS: AST(SGOT) 28 U/L (15-37); Alanine Aminotransfer ALT/SGPT 46 U/L (16-61); Albumin, Serum 3.7 g/dL (3.2-5.0); Alkaline Phosphatase 66 U/L (45-117); Anion Gap 5 (5-15); BUN 18 mg/dL (7-18); BUN/Creat Ratio 18.6 RATIO (10-20); Calcium,Total 8.8 mg/dL (8.5-10.1); Chloride 105 mmol/L (98-107); Creatinine, Serum 0.97 mg/dL (0.70-1.30); EST Glomerular Filtration Rate 81 mL/min (>60); Est Glom Filt Rate - Afr Amer 98 mL/min (>60); Globulin 3.8 g/dL (2.2-4.2); Glucose 115 mg/dL (74-106); Protein, Total 7.5 g/dL (6.4-8.2); Sodium Level 137 mmol/L (136-145)
== END ==
PROVIDERS: Family Provider Family Medicine; PCP Family Medicine; Referring Provider Internal Medicine Rheumatology; Visit Provider Internal Medicine Rheumatology
DX: M06.00 Rheumatoid arthritis without rheumatoid factor, unspecified site (principal); I48.0 Paroxysmal atrial fibrillation; M15.9 Polyosteoarthritis, unspecified; G56.01 Carpal tunnel syndrome, right upper limb; I87.2 Venous insufficiency (chronic) (peripheral); M47.892 Other spondylosis, cervical region; M47.897 Other spondylosis, lumbosacral region; K21.9 Gastro-esophageal reflux disease without esophagitis; Z79.899 Other long term (current) drug therapy
CPT/HCPCS: 36415; 80053; 85025

== ENCOUNTER → 2018-11-21 14:08 | Outpatient (CLI) | payer MEDICARE, SELFPAY ==
[2018-11-21 15:43] LABS: Absolute Lymphocyte Count 1.85 X10^3/ul (0.83-4.51); Absolute Neutrophil Count 1.9 X10^3/uL (2.0-7.7); Basophil# 0.02 X10^3/uL; Basophil% 0.5 % (0-1); Eosinophil# 0.16 X10^3/uL; Eosinophils% 3.7 % (0-5); Hemoglobin 12.8 g/dl (13.0-16.5); Lymphocyte # 1.85 X10^3/ul (4.0); Lymphocyte % 43.3 % (19-41); Mean Corp Hgb Conc 32.8 g/gl (32-36); Mean Corpuscular Hgb 30.8 pg (27.0-32.0); Mean Corpuscular Volume 93.8 fL (80-94); Mean Platelet Vol. 10.8 fl (6.2-12.0); Monocyte# 0.31 X10^3/uL; Monocyte% 7.3 % (0-10); Neutrophil # 1.91 X10^3/uL (2.7-7.7); Neutrophil % 44.7 % (47-70); Platelet Count 161 K/mm3 (150-450); RBC Distribution Width CV 14.8 % (11.6-14.6); RBC Distribution Width SD 49.6 fl (35.1-43.9); Red Blood Count 4.16 M/mm3 (4.6-6.2); White Blood Count 4.3 K/mm3 (4.4-11.0)
[2018-11-21 15:51] LABS: POSITIVE COUNT NO; POSITIVE DIFFERENTIAL NO; POSITIVE MORPHOLOGY NO
[2018-11-21 15:55] LABS: ALB/GLOB Ratio 0.9 RATIO (0.9-2.4); AST(SGOT) 29 U/L (15-37); Alanine Aminotransfer ALT/SGPT 47 U/L (16-61); Albumin, Serum 3.5 g/dL (3.2-5.0); Alkaline Phosphatase 69 U/L (45-117); Anion Gap 5 (5-15); BUN 17 mg/dL (7-18); BUN/Creat Ratio 17.9 RATIO (10-20); Calcium,Total 8.8 mg/dL (8.5-10.1); Chloride 106 mmol/L (98-107); Creatinine, Serum 0.95 mg/dL (0.70-1.30); EST Glomerular Filtration Rate 83 mL/min (>60); Est Glom Filt Rate - Afr Amer 100 mL/min (>60); Globulin 3.8 g/dL (2.2-4.2); Glucose 138 mg/dL (74-106); Protein, Total 7.3 g/dL (6.4-8.2); Sodium Level 138 mmol/L (136-145)
== END ==
PROVIDERS: Family Provider Family Medicine; PCP Family Medicine; Referring Provider Internal Medicine Rheumatology; Visit Provider Internal Medicine Rheumatology
DX: M06.00 Rheumatoid arthritis without rheumatoid factor, unspecified site (principal); M15.9 Polyosteoarthritis, unspecified; G56.01 Carpal tunnel syndrome, right upper limb; I48.0 Paroxysmal atrial fibrillation; M47.892 Other spondylosis, cervical region; M47.897 Other spondylosis, lumbosacral region; I87.2 Venous insufficiency (chronic) (peripheral); K21.9 Gastro-esophageal reflux disease without esophagitis; Z79.899 Other long term (current) drug therapy
CPT/HCPCS: 36415; 80053; 85025

== ENCOUNTER → 2019-02-08 12:45 | Outpatient (CLI) | payer MEDICARE, SELFPAY ==
[2019-02-08 13:52] LABS: Absolute Lymphocyte Count 1.83 X10^3/uL (0.83-4.51); Absolute Neutrophil Count 1.6 X10^3/uL (2.0-7.7); Basophil# 0.04 X10^3/uL; Eosinophil# 0.18 X10^3/uL; Eosinophils% 4.3 % (0-5); Hematocrit 38.3 % (40-54); Hemoglobin 12.7 g/dL (13.0-16.5); Lymphocyte # 1.83 X10^3/ul (4.0); Lymphocyte % 43.5 % (19-41); Mean Corp Hgb Conc 33.2 g/dL (32-36); Mean Corpuscular Hgb 31.4 pg (27.0-32.0); Mean Corpuscular Volume 94.6 fL (80-94); Mean Platelet Vol. 10.5 fl (6.2-12.0); Monocyte% 11.9 % (0-10); NRBC Flagged by Analyzer 0 % (0-5); Neutrophil # 1.61 X10^3/uL (2.7-7.7); Neutrophil % 38.1 % (47-70); Platelet Count 153 K/mm3 (150-450); RBC Distribution Width CV 14.6 % (11.6-14.6); RBC Distribution Width SD 50.4 fl (35.1-43.9); Red Blood Count 4.05 M/mm3 (4.6-6.2); White Blood Count 4.2 K/mm3 (4.4-11.0)
[2019-02-08 14:11] LABS: ALB/GLOB Ratio 0.9 RATIO (0.9-2.4); AST(SGOT) 32 U/L (15-37); Alanine Aminotransfer ALT/SGPT 46 U/L (16-61); Albumin, Serum 3.4 g/dL (3.2-5.0); Alkaline Phosphatase 67 U/L (45-117); Anion Gap 6 (5-15); BUN 19 mg/dL (7-18); BUN/Creat Ratio 19.7 RATIO (10-20); Calcium,Total 8.8 mg/dL (8.5-10.1); Chloride 106 mmol/L (98-107); Creatinine, Serum 0.96 mg/dL (0.70-1.30); EST Glomerular Filtration Rate 81 mL/min (>60); Est Glom Filt Rate - Afr Amer 99 mL/min (>60); Globulin 3.9 g/dL (2.2-4.2); Glucose 123 mg/dL (74-106); Protein, Total 7.3 g/dL (6.4-8.2); Sodium Level 140 mmol/L (136-145)
== END ==
PROVIDERS: Family Provider Family Medicine; PCP Family Medicine; Referring Provider Internal Medicine Rheumatology; Visit Provider Internal Medicine Rheumatology
DX: M06.00 Rheumatoid arthritis without rheumatoid factor, unspecified site (principal); M15.9 Polyosteoarthritis, unspecified; G56.01 Carpal tunnel syndrome, right upper limb; I48.0 Paroxysmal atrial fibrillation; I48.1 Persistent atrial fibrillation; M47.892 Other spondylosis, cervical region; M47.897 Other spondylosis, lumbosacral region; I87.2 Venous insufficiency (chronic) (peripheral); K21.9 Gastro-esophageal reflux disease without esophagitis; Z79.899 Other long term (current) drug therapy
CPT/HCPCS: 36415; 80053; 85025

== ENCOUNTER → 2019-05-03 12:12 | Outpatient (CLI) | payer MEDICARE, SELFPAY ==
[2019-05-03 14:26] LABS: Absolute Lymphocyte Count 1.96 X10^3/uL (0.83-4.51); Absolute Neutrophil Count 1.7 X10^3/uL (2.0-7.7); Basophil# 0.03 X10^3/uL; Basophil% 0.7 % (0-1); Eosinophil# 0.14 X10^3/uL; Eosinophils% 3.1 % (0-5); Hematocrit 36.1 % (40-54); Hemoglobin 11.6 g/dL (13.0-16.5); Lymphocyte # 1.96 X10^3/ul (4.0); Lymphocyte % 43.3 % (19-41); Mean Corp Hgb Conc 32.1 g/dL (32-36); Mean Corpuscular Hgb 30.4 pg (27.0-32.0); Mean Corpuscular Volume 94.5 fL (80-94); Mean Platelet Vol. 10.8 fl (6.2-12.0); Monocyte# 0.61 X10^3/uL; Monocyte% 13.5 % (0-10); NRBC Flagged by Analyzer 0 % (0-5); Neutrophil # 1.74 X10^3/uL (2.7-7.7); Neutrophil % 38.3 % (47-70); Platelet Count 154 K/mm3 (150-450); RBC Distribution Width SD 51.5 fl (35.1-43.9); Red Blood Count 3.82 M/mm3 (4.6-6.2); White Blood Count 4.5 K/mm3 (4.4-11.0)
[2019-05-03 14:41] LABS: ALB/GLOB Ratio 0.9 RATIO (0.9-2.4); AST(SGOT) 40 U/L (15-37); Alanine Aminotransfer ALT/SGPT 58 U/L (16-61); Albumin, Serum 3.6 g/dL (3.2-5.0); Alkaline Phosphatase 58 U/L (45-117); Anion Gap 6 (5-15); BUN 20 mg/dL (7-18); BUN/Creat Ratio 19.8 RATIO (10-20); Calcium,Total 9.4 mg/dL (8.5-10.1); Chloride 103 mmol/L (98-107); Creatinine, Serum 1.01 mg/dL (0.70-1.30); EST Glomerular Filtration Rate 77 mL/min (>60); Est Glom Filt Rate - Afr Amer 93 mL/min (>60); Glucose 120 mg/dL (74-106); Potassium 3.9 mmol/L (3.5-5.1); Protein, Total 7.6 g/dL (6.4-8.2); Sodium Level 138 mmol/L (136-145)
== END ==
PROVIDERS: Family Provider Family Medicine; PCP Family Medicine; Referring Provider Internal Medicine Rheumatology; Visit Provider Internal Medicine Rheumatology
DX: M06.00 Rheumatoid arthritis without rheumatoid factor, unspecified site (principal); M15.9 Polyosteoarthritis, unspecified; G56.01 Carpal tunnel syndrome, right upper limb; I48.0 Paroxysmal atrial fibrillation; M47.892 Other spondylosis, cervical region; M47.897 Other spondylosis, lumbosacral region; I87.2 Venous insufficiency (chronic) (peripheral); K21.9 Gastro-esophageal reflux disease without esophagitis; Z79.899 Other long term (current) drug therapy
CPT/HCPCS: 36415; 80053; 85025

== ENCOUNTER → 2019-08-01 14:19 | Outpatient (CLI) | payer MEDICARE, SELFPAY ==
[2019-08-01 16:34] LABS: ALB/GLOB Ratio 0.9 RATIO (0.9-2.4); AST(SGOT) 27 U/L (15-37); Alanine Aminotransfer ALT/SGPT 57 U/L (16-61); Albumin, Serum 3.6 g/dL (3.2-5.0); Alkaline Phosphatase 51 U/L (45-117); Anion Gap 2 (5-15); BUN 18 mg/dL (7-18); BUN/Creat Ratio 16.8 RATIO (10-20); Chloride 107 mmol/L (98-107); Creatinine, Serum 1.07 mg/dL (0.70-1.30); EST Glomerular Filtration Rate 72 mL/min (>60); Est Glom Filt Rate - Afr Amer 87 mL/min (>60); Globulin 3.8 g/dL (2.2-4.2); Glucose 56 mg/dL (74-106); Potassium 3.7 mmol/L (3.5-5.1); Protein, Total 7.4 g/dL (6.4-8.2); Sodium Level 140 mmol/L (136-145)
[2019-08-01 16:38] LABS: Absolute Neutrophil Count 2.9 X10^3/uL (2.0-7.7); Basophil# 0.03 X10^3/uL; Basophil% 0.5 % (0-1); Eosinophil# 0.14 X10^3/uL; Eosinophils% 2.4 % (0-5); Hematocrit 32.6 % (40-54); Hemoglobin 9.5 g/dL (13.0-16.5); Lymphocyte % 34.7 % (19-41); Mean Corp Hgb Conc 29.1 g/dL (32-36); Mean Corpuscular Hgb 24.9 pg (27.0-32.0); Mean Corpuscular Volume 85.3 fL (80-94); Mean Platelet Vol. 10.2 fl (6.2-12.0); Monocyte# 0.66 X10^3/uL; Monocyte% 11.4 % (0-10); NRBC Flagged by Analyzer 0 % (0-5); Neutrophil # 2.89 X10^3/uL (2.7-7.7); Neutrophil % 50.1 % (47-70); Platelet Count 226 K/mm3 (150-450); RBC Distribution Width CV 17.1 % (11.6-14.6); RBC Distribution Width SD 52.6 fl (35.1-43.9); Red Blood Count 3.82 M/mm3 (4.6-6.2); White Blood Count 5.8 K/mm3 (4.4-11.0)
== END ==
PROVIDERS: PCP Family Medicine; Referring Provider Internal Medicine Rheumatology; Visit Provider Internal Medicine Rheumatology
DX: M06.00 Rheumatoid arthritis without rheumatoid factor, unspecified site (principal); Z79.899 Other long term (current) drug therapy; M15.9 Polyosteoarthritis, unspecified; G56.03 Carpal tunnel syndrome, bilateral upper limbs; K21.9 Gastro-esophageal reflux disease without esophagitis; I48.0 Paroxysmal atrial fibrillation; M47.892 Other spondylosis, cervical region; M47.897 Other spondylosis, lumbosacral region; I87.2 Venous insufficiency (chronic) (peripheral)
CPT/HCPCS: 36415; 80053; 85025

== ENCOUNTER → 2019-10-31 14:50 | Outpatient (CLI) | payer MEDICARE, SELFPAY ==
[2019-10-31 17:43] LABS: Absolute Neutrophil Count 2.3 X10^3/uL (2.0-7.7); Basophil# 0.02 X10^3/uL; Basophil% 0.4 % (0-1); Eosinophil# 0.11 X10^3/uL; Eosinophils% 2.4 % (0-5); Hematocrit 36.2 % (40-54); Hemoglobin 10.8 g/dL (13.0-16.5); Lymphocyte % 34.4 % (19-41); Mean Corp Hgb Conc 29.8 g/dL (32-36); Mean Corpuscular Volume 83.8 fL (80-94); Mean Platelet Vol. 9.8 fl (6.2-12.0); Monocyte# 0.59 X10^3/uL; Monocyte% 12.7 % (0-10); NRBC Flagged by Analyzer 0 % (0-5); Neutrophil # 2.31 X10^3/uL (2.7-7.7); Neutrophil % 49.7 % (47-70); Platelet Count 201 K/mm3 (150-450); RBC Distribution Width CV 19.2 % (11.6-14.6); RBC Distribution Width SD 57.5 fl (35.1-43.9); Red Blood Count 4.32 M/mm3 (4.6-6.2); White Blood Count 4.7 K/mm3 (4.4-11.0)
[2019-10-31 18:07] LABS: ALB/GLOB Ratio 0.9 RATIO (0.9-2.4); AST(SGOT) 22 U/L (15-37); Alanine Aminotransfer ALT/SGPT 33 U/L (16-61); Albumin, Serum 3.6 g/dL (3.2-5.0); Alkaline Phosphatase 56 U/L (45-117); Anion Gap 8 (5-15); BUN 17 mg/dL (7-18); BUN/Creat Ratio 14.9 RATIO (10-20); Chloride 108 mmol/L (98-107); Creatinine, Serum 1.14 mg/dL (0.70-1.30); EST Glomerular Filtration Rate 67 mL/min (>60); Est Glom Filt Rate - Afr Amer 81 mL/min (>60); Globulin 4.1 g/dL (2.2-4.2); Glucose 109 mg/dL (74-106); Potassium 3.7 mmol/L (3.5-5.1); Protein, Total 7.7 g/dL (6.4-8.2); Sodium Level 141 mmol/L (136-145)
== END ==
PROVIDERS: PCP Family Medicine; Referring Provider Internal Medicine Rheumatology; Visit Provider Internal Medicine Rheumatology
DX: M06.00 Rheumatoid arthritis without rheumatoid factor, unspecified site (principal); M15.9 Polyosteoarthritis, unspecified; G56.03 Carpal tunnel syndrome, bilateral upper limbs; K21.9 Gastro-esophageal reflux disease without esophagitis; I48.0 Paroxysmal atrial fibrillation; M47.892 Other spondylosis, cervical region; M47.897 Other spondylosis, lumbosacral region; I87.2 Venous insufficiency (chronic) (peripheral); Z79.899 Other long term (current) drug therapy
CPT/HCPCS: 36415; 80053; 85025

== ENCOUNTER 2019-11-03 19:30 | Inpatient (IN) | payer MEDICARE, SELFPAY ==
[2019-11-03] VITALS (15 sets, daily range): BP systolic 72–152; BP diastolic 45–110; PULSE 95–165; RESP 15–32; TEMP 37.7–39.7; O2SAT 90–98; BMI 41.5; BMI 44.8
--- NOTE | 2019-11-03 19:52 | EKG12_ITS ---
Test Reason : SOB Blood Pressure : / mmHG Vent. Rate : 174 BPM Atrial Rate : 227 BPM P-R Int : 000 ms QRS Dur : 080 ms QT Int : 246 ms P-R-T Axes : 000 057 140 degrees QTc Int : 418 ms Atrial fibrillation with premature ventricular or aberrantly conducted complexes Nonspecific ST and T wave abnormality Abnormal ECG Confirmed by VEENA MORFIN, IRINA ([id number]), film editor supervisor PASCUAL MCKEON ([id number]) on 11/06/2019 3:22:59 PM Referred By: Pamela Segura Confirmed By:IRINA CURIEL MD
--- NOTE | 2019-11-03 19:52 | RAD_ITS ---
STUDY: X-RAY CHEST REASON FOR EXAM: Male, 74 years old. fever, cough, short of breath, x today TECHNIQUE: Single AP portable view of the chest. COMPARISON: 22 May 2013. FINDINGS: Mild prominent interstitial markings and pulmonary vasculature is noted. There is no demonstrated pleural abnormality. Normal size heart. Normal mediastinum and dank. Normal visualized pulmonary arteries. Normal visualized aortic arch and descending thoracic aorta. Normal visualized thoracic spine. Normal visualized ribs, clavicles, and shoulders. There is no demonstrated abnormality of the visualized soft tissue structures of the upper abdomen. RAD/Chest 1 View (Portable) IMPRESSION: Prominent interstitial markings and pulmonary vasculature with no distinct focal airspace disease. Electronically Signed: Tien Mendez DO at 20:46 EDT , Service support ,
[2019-11-03] MEDS: Acetaminophen 500 MG Tablet 1000 MG PO (20:02)
[2019-11-03] MEDS: Digoxin 250 MCG/ML Ampul 500 MCG IV (20:03)
[2019-11-03 20:11] LABS: Absolute Neutrophil Count 6.5 X10^3/uL (2.0-7.7); Basophil# 0.01 X10^3/uL; Basophil% 0.1 % (0-1); Eosinophil# 0.04 X10^3/uL; Eosinophils% 0.5 % (0-5); Hematocrit 34.7 % (40-54); Hemoglobin 10.4 g/dL (13.0-16.5); Lymphocyte % 6.8 % (19-41); Mean Corpuscular Hgb 24.7 pg (27.0-32.0); Mean Corpuscular Volume 82.4 fL (80-94); Mean Platelet Vol. 9.5 fl (6.2-12.0); Monocyte# 0.31 X10^3/uL; Monocyte% 4.2 % (0-10); NRBC Flagged by Analyzer 0 % (0-5); Neutrophil # 6.47 X10^3/uL (2.7-7.7); Neutrophil % 87.7 % (47-70); POSITIVE DIFFERENTIAL YES; Platelet Count 162 K/mm3 (150-450); RBC Distribution Width CV 19.7 % (11.6-14.6); RBC Distribution Width SD 56.9 fl (35.1-43.9); Red Blood Count 4.21 M/mm3 (4.6-6.2); White Blood Count 7.4 K/mm3 (4.4-11.0)
[2019-11-03 20:19] LABS: Differential Indicated SCAN CRITERIA MET
[2019-11-03 20:26] LABS: International Normalized Ratio 1.2; Partial Thromboplast Time 23.7 Seconds (24.1-36.2); Prothrombin Time (Protime)PT. 14.7 SECONDS (11.7-14.9)
--- NOTE | 2019-11-03 20:34 | ED.RN ---
1809 pt found getting out of bed pulling all lines incontinent of bm. Not making any sense and difficult to re-orient. finished large bm on bsc then cleaned and bed changed.
[2019-11-03 20:36] LABS: ALB/GLOB Ratio 0.9 RATIO (0.9-2.4); AST(SGOT) 29 U/L (15-37); Alanine Aminotransfer ALT/SGPT 36 U/L (16-61); Albumin, Serum 3.6 g/dL (3.2-5.0); Alkaline Phosphatase 56 U/L (45-117); Anion Gap 7 (5-15); BUN 20 mg/dL (7-18); BUN/Creat Ratio 16.1 RATIO (10-20); Chloride 108 mmol/L (98-107); Creatinine, Serum 1.24 mg/dL (0.70-1.30); Differential Comment SCANNED; EST Glomerular Filtration Rate 61 mL/min (>60); Est Glom Filt Rate - Afr Amer 74 mL/min (>60); Estimated Creatinine Clearance 59.96 ml/min; Globulin 4.2 g/dL (2.2-4.2); Glucose 138 mg/dL (74-106); Potassium 3.6 mmol/L (3.5-5.1); Protein, Total 7.8 g/dL (6.4-8.2); Sodium Level 139 mmol/L (136-145)
[2019-11-03 20:37] LABS: Lactic Acid 3.3 mmol/L (0.4-1.9)
--- NOTE | 2019-11-03 21:00 | HP.PCM_ITS ---
Problem List (1) Suspected COVID-19 virus infection Status: Acute (2) Acute respiratory failure with hypoxia Status: Acute (3) Severe sepsis Status: Acute (4) Encephalopathy acute Status: Acute (5) Atrial fibrillation with RVR Status: Acute (6) HTN (hypertension) Status: Chronic Qualifiers: Hypertension type: essential hypertension Qualified Code(s): I10 - Essential (primary) hypertension (7) Morbid obesity Status: Chronic (8) Rheumatoid arthritis Status: Chronic Qualifiers: Rheumatoid arthritis location: unspecified site Rheumatoid factor presence: unspecified presence Qualified Code(s): M06.9 - Rheumatoid arthritis, unspecified (9) BPH (benign prostatic hyperplasia) Status: Chronic Qualifiers: Lower urinary tract symptom presence: unspecified whether lower urinary tract symptoms present Qualified Code(s): N40.0 - Benign prostatic hyperplasia without lower urinary tract symptoms (10) GERD (gastroesophageal reflux disease) Status: Chronic Qualifiers: Esophagitis presence: esophagitis presence not specified Qualified Code(s): K21.9 - Gastro-esophageal reflux disease without esophagitis History of Present Illness Date of Admission: 11/03/19 Chief Complaint: Fever, cough, dyspnea. The patient is a 74 y/o M w/ PMHx: BPH, Chronic normocytic anemia, PAF s/p ablation ([facility]) on eliquis (last dose this AM), HTN, HLD, GERD, Depression, Morbid Obesity, Rheumatoid arthritis on Humira, MTX, Plaquenil who presents to the [facility] ED on 11/03/19 with history of onset fever, cough and dyspnea starting on day of ED presentation, worsening prompting evaluation in addition to notable confusion in the ED thus not the best historian but noted he was fine until today, working in the [employer] but had onset rigors, chills, T 100.3 at home. and patient denies any recent headache, myalgia, arthralgia, loss of smell, fatigue, malaise. On the way to the ED patient did have nausea and emesis x 2. He also while in the ED did have episode diarrhea. He denies any associated abdominal discomfort. She notes he has gone out and will only occasionally wear a mask but patient states he has been wearing a mask all the time. During evaluation patient does have left lower extremity edema, greater than right as well as tenderness to palpation of the calf region and notes that is been more tender and mildly swollen over the last week. Work-up in the ED included T103.2, heart rate up to 165, BP 127/75, respiratory rate initially 30 with 93% on room air, CBC with WBC 7.4, hemoglobin 10.4, platelet 162 with lymphopenia, coags with PT 14.7, INR 1.2, PTT 23.7, CMP w/ chloride 108, BUN/creatinine 20/1.24, glucose 138, lactic acid 3.3, trop less than 0.015, Blood culture x2 pending per ED, UA requested per ED but pending as well as UCx pending per ED, EKG with atrial fibrillation with RVR, chest x-ray with prominent interstitial markings and pulmonary vasculature with no distinct focal airspace disease, COVID pending per ED. In the ED patient ministered Tylenol 1000 mg p.o. x1, digoxin 500 mcg IV x1, normal saline in addition to vancomycin, Zosyn and eventually an amiodarone drip. Past Medical History Past Medical History (Chronic Problems): Chronic Problems HTN (hypertension) (Chronic) Morbid obesity (Chronic) Rheumatoid arthritis (Chronic) BPH (benign prostatic hyperplasia) (Chronic) GERD (gastroesophageal reflux disease) (Chronic) Allergies hydrocodone bitartrate [From Vicodin] Allergy (Verified 11/03/19 19:33) Other Home Medications: Ambulatory Orders Medication Instructions Recorded Ascorbate Calcium [Vitamin C] 500 mg PO DAILY 02/22/14 Finasteride [Propecia] 1 mg PO DAILY 02/22/14 Folic Acid 1 mg PO DAILY 02/22/14 Gabapentin [Neurontin] 100 mg PO TIDCM PRN 02/22/14 Ginkgo Biloba 60 mg PO DAILY 02/22/14 Hydrochlorothiazide 50 mg PO DAILY 02/22/14 Hydroxychloroquine [Plaquenil] 200 mg PO BIDCM 02/22/14 Lutein 20 mg PO DAILY 02/22/14 Methotrexate 12.5 mg PO Q7D 02/22/14 Multivit-Min/FA/Lycopene/Lut 1 each PO DAILY 02/22/14 [Centrum Silver Tablet] Nabumetone [Relafen] 750 mg PO BID 02/22/14 [place]-3 Fatty Acids/Fish Oil [Fish 1 each PO DAILY 02/22/14 Oil 1,000 mg Softgel] Omeprazole [Prilosec] 40 mg PO QHS 02/22/14 Adalimumab [Humira] 40 mg SQ QWEEK 03/01/14 Ciprofloxacin [Cipro] 500 mg PO BID #10 tablet 03/01/14 Metoprolol Succinate 50 mg PO QHS 03/01/14 Oxycodone HCl/Acetaminophen 1 tablet PO Q4H PRN PRN #20 tablet 03/01/14 [Percocet 5/325] Phenazopyridine [Pyridium] 100 mg PO TID #14 tablet 03/01/14 Surgical History: - - Bilateral total hip replacement, bilateral total knee replacement, cataract surgery bilaterally. Psychiatric History: Depression Lives: Spouse/ Significant Other Smoking Status: Former smoker - Patient quit cigarette tobacco usage in January 2019. Prior to this he notes 1 to 2 cigarettes weekly since he was young. Tobacco Use: Non-smoker Alcohol: None Drugs: None - *Family History Maternal History Items: - - Patient notes maternal family history of macular degeneration otherwise denies any heart disease, diabetes or cancer. Paternal History Items: - - Patient notes his father passed at age 42, unclear specific reason, no medical history prior to his including heart disease, diabetes or cancer. Review of Systems Constitutional: Reports: Chills, Fever. Denies: Anorexia, Malaise, Weakness, Weight Change, Fatigue HEENT: Denies: Head Aches, Sinus Congestion, Sinus Drainage Cardiovascular: Denies: Chest Pain, Palpitations Respiratory: Reports: Shortness of Breath, Shortness of breath at rest, Short ness of breath upon exertion. Denies: Cough, Sputum production, Wheezing Gastrointestinal: Reports: Diarrhea, Nausea, Vomiting. Denies: Abdominal Pain, Constipation Genitourinary: Denies: Dysuria Musculoskeletal: Reports: Back Pain - Chronic, no new, Joint Pain - Chronic, no new. Denies: Joint Tenderness, Muscle pain Skin: Denies: Rash, Wounds Neurological: Reports: Confusion. Denies: Focal weakness, Numbness, Tingling Psychiatric: Reports: Depression. Denies: Anxiety, Homicidal Ideations, Suicidal Ideations Hematologic/ Lymphatic: Reports: Anemia, Easy Bruising, Easy Bleeding VTE Information - Inpt Only VTE Present on Admission: No VTE Mechan Device Prophylaxis: SCD's VTE Pharm Prophylaxis ordered?: Yes Patient Problems: Active and Suspected Problems Suspected COVID-19 virus infection (Acute) Acute respiratory failure with hypoxia (Acute) Severe sepsis (Acute) Encephalopathy acute (Acute) Atrial fibrillation with RVR (Acute) Subjective: Seated upright in the ED bed, fatigued and ill-appearing, recent amiodarone bolus completed, heart rate down into the 140s during evaluation. Objective: Physical Examination: General: awake, alert, oriented to self, place and recent events, improving since initial ED presentation, was very confused initially, still has to correct himself several times, remains cooperative, seated upright in the ED bed, fatigued and ill-appearing, still increased respiratory rate, some accessory muscle usage. Skin: normal color, turgor, no icterus, cyanosis except notable bilateral lower extremity chronic venous stasis skin changes. HEENT: AT/NC, EOMI, PERRLA, dry MM, no carotid bruits or JVD noted; however, thickened neck makes examination difficult. Lungs: Diminished breath sounds bilaterally, greater bases, increased effort, mildly increased respiratory rate, some accessory muscle usage, no obvious rales, ronchi or wheezing. Heart: Irregular irregular; no gallop, rub audible. Abdomen: soft, morbidly obese, NTTP, ND, moderately hyperactive BS, no HSM; however, habitus makes examination difficult. Extremities: no cyanosis, clubbing, bilateral lower extremity chronic venous stasis skin changes, left lower extremity with 1+ pitting edema, tenderness to palpation. Neurological: patient awake, alert, oriented as noted; cognitive function improving, nearing baseline intact; pupils equally reactive to light and accomodation; cranial nerves II-XII grossly normal, moving all 4 extremities, no focal deficits, strength severely global decrease secondary to acute presentation. Psychiatric: affect appears flat, ill-appearing, no acute evidence of depressive or anxiety feelings. - Physical Exam Vitals/I&O's: Vital Signs Temp Pulse Resp BP Pulse Ox 103.2 F H 165 H 29 H 127/75 H 95 11/03/19 20:29 11/03/19 20:00 11/03/19 20:00 11/03/19 20:00 11/03/19 20:00 Oxygen Flow Rate (L/min) 3 Oxygen Delivery Method Room Air Weight: 315 lb Body Mass Index (BMI) 41.5 Intake and Output for Last 24 Hours 11/01/19 11/02/19 11/03/19 23:59 23:59 23:59 Intake Total 500 / 500 Balance 500 / 500 Laboratory Results 11/03/19 19:50: WBC 7.4, RBC 4.21 L, Hgb 10.4 L, Hct 34.7 L, MCV 82.4, MCH 24.7 L, MCHC 30.0 L, RDW Std Deviation 56.9 H, RDW Coeff of Meliza 19.7 H, Plt Count 162, MPV 9.5, Immature Gran % (Auto) 0.700, Neut % (Auto) 87.7 H, Lymph % (Auto) 6.8 L, [place] % (Auto) 4.2, Eos % (Auto) 0.5, Baso % (Auto) 0.1, Absolute Neuts (auto) 6.5, Absolute Lymphs (auto) 0.50 L, Nucleated RBC % 0, Differential Comment SCANNED 11/03/19 19:50: PT 14.7, INR 1.2, APTT 23.7 L 11/03/19 19:50: Sodium 139, Potassium 3.6, Chloride 108 H, Carbon Dioxide 24.0, Anion Gap 7, BUN 20 H, Creatinine 1.24, Estim Creat Clear Calc 59.96, Est GFR (MDRD) Af Amer 74, Est GFR (MDRD) Non-Af 61, BUN/Creatinine Ratio 16.1, Glucose 138 H, Calcium 9.0, Total Bilirubin 0.60, AST 29, ALT 36, Alkaline Phosphatase 56, Troponin I < 0.015, Total Protein 7.8, Albumin 3.6, Globulin 4.2, Albumin/Globulin Ratio 0.9 11/03/19 19:50: Lactic Acid 3.3 H* Current Medications Piperacillin Sod/Tazobactam (Sod 4.5 gm/ Sodium Chloride) 100 mls @ 200 mls/hr IV X1 ONE Stop: 11/03/19 21:07 Last Admin: 11/03/19 20:55 Dose: 200 mls/hr Documented by: Vancomycin HCl 2,000 mg/ (Sodium Chloride) 540 mls @ 250 mls/hr IV X1 ONE Stop: 11/03/19 22:54 Assessment/Plan All Active Problems Suspected COVID-19 virus infection (Acute) Acute respiratory failure with hypoxia (Acute) Severe sepsis (Acute) Encephalopathy acute (Acute) Atrial fibrillation with RVR (Acute) The patient is a 74 y/o M w/ PMHx: BPH, Chronic normocytic anemia, PAF s/p ablation ([facility]) on eliquis (last dose this AM), HTN, HLD, GERD, Depression, Morbid Obesity, Rheumatoid arthritis on Humira, MTX, Plaquenil who presents to the [facility] ED on 11/03/19 with history of onset fever, cough and dyspnea starting on day of ED presentation, worsening with nausea and emesis x 2 during transit to the ED and diarrhea in the ED x 1. 1. Acute Encephalopathy (infectious) secondary to Acute Severe Sepsis secondary to Acute Hypoxic Respiratory Failure secondary to Suspected Acute Viral Syndrome, COVID-19 w/ pending COVID-19 testing upon admission: Will admit to the ICU with COVID precautions with COVID pending but high suspicion, will maintain on oxygen with wean as tolerated to room air, continue PRN albuterol, maintain on IV Zosyn and Vancomycin given immunosuppression w/ pending MRSA screen, HOB, IS parameters w/ respiratory panel pending per ED, pending COVID testing per ED, will obtain sputum, urine antigens, procalcitonin, CPK, Fibrinogen, BNP, CRP, Ferritin, LDH, D-dimer however given atrial fibrillation as noted with RVR plan to administer therapeutic lovenox, obtain ECHO and cycle cardiac enzymes, repeat EKG in AM with Cardiology involvement, continue supportive care including q 2 hour turning including prone given no prone bed availability and judicious h ydration, closely monitor for worsening status for ARDS and multiorgan failure. If worsening respiratory status would plan to obtain ABG and consider BiPAP per most recent data to defer intubation, wet inspector optical glass consulted. Bld cx x 2 obtained in the ED. 2. Paroxsymal atrial fibrillation with RVR, Secondary to #1: EKG in ED w/ atrial fibrillation w/ RVR. Patient administered IV digoxin in ED with transition to amiodarone drip. Will maintain on telemetry, obtain cardiac enzyme serial set with initial normal x1, obtain magnesium level, obtain ECHO, obtain TSH level. Will transition from eliquis to lovenox, especially given acute presentation as noted #1. Will continue patient amiodarone recently initiated drip with alteration per cardiology discretion. Cardiology consulted, pending. 3. Hyperglycemia: Admission glucose 138, likely stress response, will obtain HgbA1c to be cautious. 4. Left lower extremity edema, pain, possible DVT: Patient at home on Eliquis therapy, last this a.m., holding with transition to therapeutic Lovenox given acute presentation and these findings, requested duplex ultrasound and d-dimer pending as part of work-up with #1. 5. Rheumatoid Arthritis: Complicates presentation, noted regimen prior inclusive of Humira, MTX, Plaquenil, will hold Humira, MTX regimen, also hold plaquenil with usage of amiodarone. Will cautiously continue home NSAID, hold if renal fx alterations. 6. Chronic normocytic anemia: Admission hemoglobin 10.4, stable compared to baseline previously noted, 9-12, continue to trend CBC. 7. Hypertension: Given #2 planned amiodarone drip as decreasing BPs in the ED, continue to monitor as currently BP normal range, once appropriate may resume patient metoprolol with altered regimen as needed as well as other antihypertensive regimen, PRN hydralazine. 8. BPH: We will continue patient home proscar regimen. 9. GERD: Continue home PPI. 10. DVT Prophylaxis: SCDs, therapeutic lovenox transition (last dose eliquis AM) given acute presentation as noted. 11. CODE status: Patient LAURIE is his and living will is currently in place. Discussed CODE status at length including difference between FULL code, DNR-CCA and DNR-CC status. Following discussions about the differences in these status, requested continuation of full CODE STATUS and this was also verified with his spouse. Advanced Care Planning Face to Face Time: 16 minutes. Inpatient E&M: 59485 Init Hosp L3 Procedures: 61419 Advncd Care Plan 30 Min
--- NOTE | 2019-11-03 21:16 | ED.VISSUMM ---
- ER Visit Summary Date of Service: 11/03/19 Chief Complaint: Cough and fever History of Present Illness: The patient is a [address] Johnson and Dr. Kaiser. Patient reports that he has a cough today and has had a fever to 103 degrees. He is confused and not an accurate informant. Patient's reports that this afternoon he began shaking. She took his temperature and it was 103 degrees. She states that he has not had any sick contacts. He has been staying at home as much as possible. However, he is going out and when he does he wears a mask. Patient has a history of rheumatoid arthritis and is on multiple immunosuppressants. Patient denies a sore throat. He does report a short of breath. Denies abdominal pain. No vomiting or diarrhea. No dysuria or frequency. No headache or myalgias. Physical Examination: Vitals: 103.2, 152/110, 126, 30, 93% on room air which is not hypoxic. General: Well-nourished and well-developed. Head: Normocephalic atraumatic. Neck: Supple, no lymphadenopathy. No JVD. Nontender. Cardiovascular: Tachycardic irregular rhythm with no murmur. Respiratory: No respiratory distress. Clear to auscultation bilaterally. Abdominal: Soft, nontender, nondistended, normal bowel sounds. No guarding, rebound, or peritoneal signs. Back: Nontender. Extremities: Nontender, no edema. Skin: Normal color, no rash. Neurologic: Alert and oriented ?1. Moves all extremities well. Psych: Normal affect. Test Results: EKG is A. fib at [address] changes. Troponin is negative. Coags are normal. LFTs are normal. Chem-7 shows a chloride 108, glucose 138. Lactic acid is 3.3. CBC shows an H&H 10.4 34.7, 7 neutrophils 88 and lymphocytes of 7. Clinical Impression(s) from Imaging Studies Chest X-Ray 11/03/19 19:52 IMPRESSION: Prominent interstitial markings and pulmonary vasculature with no distinct focal airspace disease. Electronically Signed: Tien Mendez DO at 20:46 EDT , Service support , Emergency Department Course and Treatment: Patient was given a dose of Tylenol p.o. He was given digoxin IV. There is been essentially no change in his rate. He was given a liter of normal saline. I did not give him further normal saline because I am concerned that he may have COVID-19. He was given 150 mg of amiodarone IV and started on an amiodarone drip. He was given Zosyn and vancomycin IV because he does have severe sepsis and is immunosuppressed. Treatment Plan: Patient was discussed with Dr. Segura. He will be admitted to the ICU for further evaluation and treatment. Disposition: Admitted in critical condition. Impression: 1. Atrial fibrillation with RVR. 2. Rheumatoid arthritis on immunosuppressants. 3. Severe sepsis. 4. Hypoxic respiratory failure. 5. Acute delirium. 6. Coagulopathy on Eliquis. 7. Critical care time 60 minutes. This note was generated with [employer] dictation software. It may contain incorrect words, spelling, and punctuation that were not noted in review of the chart prior to signing ED Disposition - Plan for ED Patient: Referrals: Suraj Johnson MD [Primary Care Provider] -
[2019-11-03] MEDS: Amiodarone 360 MG in Dextrose 5% Viaflo Bag 192.8 ML 33.3 MG CONT INF (21:28)
[2019-11-03 21:38] LABS: Bacteria 0 SEEN /hpf (None Seen); Mucous, Urine 0 SEEN /hpf (<or=2+); Squamous Epithelial Cells - UA 0 SEEN /hpf (0-5); White Blood Cells 0 SEEN /hpf (0-5)
[2019-11-03 21:40] LABS: Color, Urine Yellow (Yellow); Glucose, Dipstick Normal (Normal); Ketone-Dipstick 5 mg/dl (Negative); Leukocyte Esterase-Dipstick 100 /ul (Negative); Nitrite-Dipstick Negative (Negative); Occult Blood-Urine 250 /ul (Negative); Protein-Dipstick 15 mg/dl (Negative); Urine Bilirubin Dipstick Negative (Negative); Urine Clarity Clear (Clear); Urine Urobilinogen 1 mg/dl (Normal)
[2019-11-03 22:02] LABS: Red Blood Cells-Urine 0-5 SEEN /hpf (0-5)
[2019-11-03] MEDS: Metoprolol Tartrate 5 MG/5 ML Vial IV (22:26)
[2019-11-03] MEDS: Metoprolol Tartrate 25 MG Tablet 12.5 MG PO (23:15)
--- NOTE | 2019-11-03 23:18 | VDLE_ITS ---
Reason For Study: SOB RIGHT LEFT CFV, FV, POP V, T/P Trunk, PTV, Peroneal V, CFV, FV, POP V, T/P Trunk, PTV, Peroneal V, and GSV are compressible. and GSV are compressible. Procedure Exam performed portable in ICU/CCU. The exam was abbreviated due to the COVID 19 protocol. The exam was of fair technical quality due to pt body habitus. A preliminary report was called and/or faxed to the [facility]. Interpretation Summary No evidence for acute deep venous thrombosis bilateral lower extremities with patent and compressible bilateral great saphenous veins. Abbreviated Covid-19 protocol Fair quality examination secondary to body habitus Ordering Physician: Pamela Segura Performed By: Ovidio Marquez RVT
--- NOTE | 2019-11-03 23:18 | ECHOCS_ITS ---
Version 2 Reason For Study: ARRHYTHMIA Procedure This was a 2D Doppler, Color Flow transthoracic echocardiogram. The study was technically difficult. Due to body habitus and patient in supine position. Poor apical accoustic windows for imaging. Contrast injection was performed. Exam performed portable in ICU/CCU. Left Ventricle Normal LV size. Mild concentric left ventricular hypertrophy. Left ventricular systolic function is hyperdynamic. The estimated ejection fraction is 70 %. No regional wall motion abnormalities noted. Right Ventricle Normal RV size. Normal systolic function. Mitral Valve There is mild mitral annular calcification. Aortic Valve Trisinus/trileaflet aortic valve. Mild focal aortic valve calcification. Pulmonic Valve Normal pulmonic valve. Mild (1+) pulmonic valve insufficiency. Great Vessels Mildly dilated aortic root. The pulmonary artery is normal size. Normal inferior vena cava. Pericardium/Pleural No pericardial effusion. MMode/2D Measurements & Calculations LVIDd: 4.4 cm IVSd: 1.2 cm Ao root diam: 3.8 cm LVIDs: 2.6 cm LVPWd: 1.2 cm LA dimension: 3.4 cm FS: 39.9 % LAV(MOD-sp4): 38.5 ml LA A4 area: 16.4 cm2 RA A4 area: 13.4 cm2 Doppler Measurements & Calculations MV E max connor: 46.6 cm/sec Lat Peak E' Connor: 9.0 cm/sec Med Peak E' Connor: 6.4 cm/sec MV A max connor: 91.2 cm/sec E/E' lat: 5.2 E/E' med: 7.3 MV E/A: 0.51 Ao V2 max: 106.0 cm/sec LV V1 max: 73.2 cm/sec PA V2 max: 79.2 cm/sec Ao max P.5 mmHg LV V1 max P.1 mmHg PI dec slope: 109.5 cm/sec2 Interpretation Summary Normal LV size. Left ventricular systolic function is hyperdynamic. No regional wall motion abnormalities noted. There is mild mitral annular calcification. The estimated ejection fraction is 70 %. Contrast injection was performed. The study was technically difficult. Ordering Physician: Pamela Segura Referring Physician: Suraj Johnson Performed By: Elisha Dover, YRUI, RVT
[2019-11-04] VITALS (31 sets, daily range): BP systolic 72–121; BP diastolic 52–84; PULSE 69–95; RESP 20–31; TEMP 37.6–39.1; O2SAT 94–99
[2019-11-04 00:06] LABS: Reflex Lactate? Y
--- NOTE | 2019-11-04 00:22 | PCM.RX.CS ---
Consult Pharmacy has been consulted to manage selected antiobiotic: Vancomycin Type of Consult: New start Suspected Infection: Sepsis Prior Doses of Antibiotics Received/Current Regimen: Medications Vancomycin HCl 1,500 mg/ (Sodium Chloride) 530 mls @ 250 mls/hr IV Q12H HEMANT Discontinued Medications Vancomycin HCl 2,000 mg/ (Sodium Chloride) 540 mls @ 250 mls/hr IV X1 ONE Stop: 11/03/19 22:54 Last Admin: 11/03/19 23:43 Dose: Infused Labs: Sodium 139 mmol/L (136-145) 11/03/19 19:50 Potassium 3.6 mmol/L (3.5-5.1) 11/03/19 19:50 Chloride 108 mmol/L (98-107) H 11/03/19 19:50 Carbon Dioxide 24.0 mmol/L (21.0-32.0) 11/03/19 19:50 Anion Gap 7 (5-15) 11/03/19 19:50 BUN 20 mg/dL (7-18) H 11/03/19 19:50 Creatinine 1.24 mg/dL (0.70-1.30) 11/03/19 19:50 Est GFR (MDRD) Af Amer 74 mL/min (>60) 11/03/19 19:50 Est GFR (MDRD) Non-Af 61 mL/min (>60) 11/03/19 19:50 BUN/Creatinine Ratio 16.1 RATIO (10-20) 11/03/19 19:50 Glucose 138 mg/dL (74-106) H 11/03/19 19:50 Weight used for dosin.9 kg Estimated Creatinine Clearance: 60 Goal Trough: 15-20 mcg/mL Pharmacy Plan for Drug Dosing: Pharmacy Service will continue to monitor and adjust dosing as required. Follow-Up Labs: Trough Vancomycin Labs to be done on [date and time ordered]: 11/05/19 @0900
[2019-11-04] MEDS: Enoxaparin 150 MG/ML Syringe 140 MG SC ×3 (00:36→21:46)
[2019-11-04] MEDS: Pantoprazole Sodium 40 MG Tablet PO ×2 (00:37→21:46)
[2019-11-04 00:38] LABS: Fibrinogen 294 mg/dl (203-444)
[2019-11-04 00:54] LABS: D-Dimer Quantitative (DVT/PE) 1.99 FEU/ug/m (0.27-0.49)
[2019-11-04 01:03] LABS: Hemoglobin A1c 6.1 % (4.2-6.3)
[2019-11-04] MEDS: 0.9% Normal Saline 1,000 ML 999 ML IV (01:15)
[2019-11-04 01:16] LABS: BNP,B-Type NATRIURETIC PEPTIDE 43.3 pg/mL (0-100)
[2019-11-04] MEDS: 0.9% Normal Saline 1,000 ML 125 ML IV ×2 (01:18→09:01)
[2019-11-04 02:19] LABS: CPK Total, Creatine Kinase 96 U/L (39-308); Ferritin 17 ng/mL (26-388); LDH 222 U/L (87-241); Magnesium 1.4 mg/dL (1.6-2.6); Thyroid Stim Hormone (TSH) 0.69 uIU/mL (0.358-3.74)
[2019-11-04] MEDS: Amiodarone 360 MG in Dextrose 5% Viaflo Bag 192.8 ML 16.7 MG CONT INF ×2 (03:32→15:25)
[2019-11-04 04:11] LABS: Absolute Lymphocyte Count 0.73 X10^3/uL (0.83-4.51); Absolute Neutrophil Count 13.7 X10^3/uL (2.0-7.7); Basophil# 0.03 X10^3/uL; Basophil% 0.2 % (0-1); Eosinophil# 0.12 X10^3/uL; Eosinophils% 0.7 % (0-5); Hematocrit 31.5 % (40-54); Hemoglobin 9.3 g/dL (13.0-16.5); Lymphocyte # 0.73 X10^3/ul (4.0); Lymphocyte % 4.5 % (19-41); Mean Corp Hgb Conc 29.5 g/dL (32-36); Mean Corpuscular Hgb 24.7 pg (27.0-32.0); Mean Corpuscular Volume 83.8 fL (80-94); Mean Platelet Vol. 9.8 fl (6.2-12.0); Monocyte# 1.32 X10^3/uL; Monocyte% 8.2 % (0-10); NRBC Flagged by Analyzer 0.1 % (0-5); Neutrophil # 13.67 X10^3/uL (2.7-7.7); Neutrophil % 84.9 % (47-70); POSITIVE MORPHOLOGY YES; Platelet Count 160 K/mm3 (150-450); RBC Distribution Width CV 19.5 % (11.6-14.6); RBC Distribution Width SD 59.3 fl (35.1-43.9); Red Blood Count 3.76 M/mm3 (4.6-6.2); White Blood Count 16.1 K/mm3 (4.4-11.0)
[2019-11-04 04:28] LABS: Differential Indicated SCAN CRITERIA MET
[2019-11-04 04:32] LABS: M R Staph aureus DNA By PCR Negative (Negative); Probe Check PASS; Specimen Processing Control PASS
--- NOTE | 2019-11-04 04:40 | RAD_ITS ---
STUDY: X-RAY CHEST REASON FOR EXAM: Male, 74 years old. DYSPNEA, COUGH TECHNIQUE: Frontal view COMPARISON: November 03, 2019 FINDINGS: The lungs are not fully expanded. There is a stable left pulmonary granuloma. Borderline size heart. Normal mediastinum. Left hilar granulomatous calcifications. Normal visualized pulmonary arteries. Normal visualized aortic arch and descending thoracic aorta. Normal visualized thoracic spine. Normal visualized ribs, clavicles, and shoulders. There is no demonstrated abnormality of the visualized soft tissue structures of the upper abdomen. RAD/Chest 1 View (Portable) IMPRESSION: Stable left pulmonary granuloma and left hilar calcifications. Electronically Signed: Peewee Mendieta DO at 13:13 EDT Tel [phone], Service support ,
[2019-11-04] MEDS: 0.9% Saline Lock 10 ML Syringe IV (04:56)
[2019-11-04 05:49] LABS: ALB/GLOB Ratio 0.8 RATIO (0.9-2.4); AST(SGOT) 40 U/L (15-37); Alanine Aminotransfer ALT/SGPT 41 U/L (16-61); Albumin, Serum 2.9 g/dL (3.2-5.0); Alkaline Phosphatase 34 U/L (45-117); Anion Gap 11 (5-15); BUN 25 mg/dL (7-18); BUN/Creat Ratio 11.1 RATIO (10-20); Chloride 106 mmol/L (98-107); Creatinine, Serum 2.26 mg/dL (0.70-1.30); EST Glomerular Filtration Rate 30 mL/min (>60); Est Glom Filt Rate - Afr Amer 37 mL/min (>60); Globulin 3.5 g/dL (2.2-4.2); Glucose 107 mg/dL (74-106); Potassium 3.5 mmol/L (3.5-5.1); Protein, Total 6.4 g/dL (6.4-8.2); Sodium Level 139 mmol/L (136-145)
--- NOTE | 2019-11-04 05:55 | EKG12_ITS ---
Test Reason : AM EKG Blood Pressure : / mmHG Vent. Rate : 081 BPM Atrial Rate : 081 BPM P-R Int : 176 ms QRS Dur : 084 ms QT Int : 382 ms P-R-T Axes : 077 039 077 degrees QTc Int : 443 ms Normal sinus rhythm Normal ECG When compared with ECG of 03-NOV-2019 20:44, MANUAL COMPARISON REQUIRED, DATA IS UNCONFIRMED Confirmed by JAMIL MORFIN, HARVINDER ([id number]), editor map PASCUAL MCKEON ([id number]) on 11/06/2019 3:50:15 PM Referred By: Pamela Segura Confirmed By:HARVINDER NEGRON MD
[2019-11-04 06:09] LABS: Anisocytosis 1+; Hypochromasia 1+
[2019-11-04] MEDS: Magnesium Sulfate 4gm/100mL 4 GM/100 ML IV.SOLN. IV (06:53)
--- NOTE | 2019-11-04 07:31 | PN_ITS ---
Patient Problems: Active and Suspected Problems Suspected COVID-19 virus infection (Acute) Acute respiratory failure with hypoxia (Acute) Severe sepsis (Acute) Encephalopathy acute (Acute) Atrial fibrillation with RVR (Acute) Reason for Visit: Follow-up on severe sepsis/bacteremia/A. fib Subjective: Patient was seen and examined. He complains of feeling SOB. He is febrile. Blood cultures are positive for Streptococcus. Objective: Physical exam: Vitals/I&O's: Vital Signs Temp Pulse Resp BP Pulse Ox 101.3 F H 82 24 H 96/62 97 11/04/19 07:00 11/04/19 07:00 11/04/19 07:00 11/04/19 07:00 11/04/19 07:00 Oxygen Flow Rate (L/min) 2 Oxygen Delivery Method Nasal Cannula Weight: 154 kg Body Mass Index (BMI) 44.8 Intake and Output for Last 24 Hours 11/02/19 11/03/19 11/04/19 23:59 23:59 23:59 Intake Total 1243 / 1483 2240 / 2240 Output Total 125 / 125 Balance 1243 / 1483 2115 / 2115 General: Alert, Oriented x3, Cooperative, No apparent distress, - - on 2L oxygen HEENT: Atraumatic, PERRLA, EOMI, Normocephalic Neck: Supple, No JVD, Negative Carotid Bruits Lungs: Clear to auscultation, Normal air movement Cardiovascular: Regular rate, No murmurs Abdomen: Bowel Sounds Present, Soft, Non Tender Extremities: No edema, Capillary Refill Less than 3 Seconds Skin: No rashes, No breakdown Musculoskeletal: No Tenderness to Palpation of Joints or Extremities Neurological: Cranial nerves II-XII grossly intact Psych/Mental Status: Normal Affect, Appropriate Microbiology Past 72 Hours 11/03/19 19:50 Blood Culture (Wb) - Left Hand Blood Culture - Preliminary 11/03/19 20:40 Blood Culture (Wb) - Venous Blood Culture - Preliminary 11/03/19 21:30 Urine Catheter - Catheter Legionella Antigen - Final 11/03/19 21:30 Urine Catheter - Catheter Streptococcus pneumoniae Antigen (M - Final 11/03/19 20:40 Mucosa - Nasopharyngeal Respiratory Panel (PCR) - Final 11/03/19 20:40 Mucosa - Nasopharyngeal Coronavirus COVID-19 PCR - Final Laboratory Results 11/03/19 19:50: WBC 7.4, RBC 4.21 L, Hgb 10.4 L, Hct 34.7 L, MCV 82.4, MCH 24.7 L, MCHC 30.0 L, RDW Std Deviation 56.9 H, RDW Coeff of Meliza 19.7 H, Plt Count 162, MPV 9.5, Immature Gran % (Auto) 0.700, Neut % (Auto) 87.7 H, Lymph % (Auto) 6.8 L, Walker % (Auto) 4.2, Eos % (Auto) 0.5, Baso % (Auto) 0.1, Absolute Neuts (auto) 6.5, Absolute Lymphs (auto) 0.50 L, Nucleated RBC % 0, Differential Comment SCANNED 11/03/19 19:50: PT 14.7, INR 1.2, APTT 23.7 L 11/03/19 19:50: Sodium 139, Potassium 3.6, Chloride 108 H, Carbon Dioxide 24.0, Anion Gap 7, BUN 20 H, Creatinine 1.24, Estim Creat Clear Calc 59.96, Est GFR (MDRD) Af Amer 74, Est GFR (MDRD) Non-Af 61, BUN/Creatinine Ratio 16.1, Glucose 138 H, Calcium 9.0, Total Bilirubin 0.60, AST 29, ALT 36, Alkaline Phosphatase 56, Troponin I < 0.015, Total Protein 7.8, Albumin 3.6, Globulin 4.2, Albumin/Globulin Ratio 0.9 11/03/19 19:50: Lactic Acid 3.3 H* 11/03/19 19:50: Magnesium 1.4 L, Ferritin 17 L, Lactate Dehydrogenase 222, Total Creatine Kinase 96, Troponin I < 0.015, C-React Prot Ext Range 4.10 H, TSH 0.69 11/03/19 19:50: B-Natriuretic Peptide 43.3 11/03/19 20:40: COVID-19 ([facility]) Cancelled 11/03/19 21:30: Urine Color Yellow, Urine Clarity Clear, Urine pH 5.0, Ur Specific [place] 1.010, Urine Protein 15 H, Urine Glucose (UA) Normal, Urine Ketones 5 H, Urine Occult Blood 250 H, Urine Nitrite Negative, Urine Bilirubin Negative, Urine Urobilinogen 1 H, Ur Leukocyte Esterase 100 H, Urine RBC 0-5 SEEN, Urine WBC 0 SEEN, Ur Squamous Epith Cells 0 SEEN, Urine Bacteria 0 SEEN, Urine Mucus 0 SEEN 11/03/19 23:45: Fibrinogen 294, D-Dimer Quant (PE/DVT) 1.99 H* 11/03/19 23:45: Hemoglobin A1c 6.1 11/03/19 23:45: Procalcitonin 8.80 H 11/03/19 23:45: MRSA (PCR) Negative 11/03/19 23:45: Lactic Acid 4.0 H* 11/04/19 03:55: WBC 16.1 H, RBC 3.76 L, Hgb 9.3 L, Hct 31.5 L, MCV 83.8, MCH 24.7 L, MCHC 29.5 L, RDW Std Deviation 59.3 H, RDW Coeff of Meliza 19.5 H, Plt Count 160, MPV 9.8, Immature Gran % (Auto) 1.500 H, Neut % (Auto) 84.9 H, Lymph % (Auto) 4.5 L, Walker % (Auto) 8.2, Eos % (Auto) 0.7, Baso % (Auto) 0.2, Absolute Neuts (auto) 13.7 H, Absolute Lymphs (auto) 0.73 L, Nucleated RBC % 0.1, Differential Comment , Hypochromasia 1+, Anisocytosis 1+ 11/04/19 03:55: Sodium 139, Potassium 3.5, Chloride 106, Carbon Dioxide 22.0, Anion Gap 11, BUN 25 H, Creatinine 2.26 H, Estim Creat Clear Calc 32.90, Est GFR (MDRD) Af Amer 37 L, Est GFR (MDRD) Non-Af 30 L, BUN/Creatinine Ratio 11.1, Glucose 107 H, Calcium 8.0 L, Total Bilirubin 1.00, AST 40 H, ALT 41, Alkaline Phosphatase 34 L, Total Protein 6.4, Albumin 2.9 L, Globulin 3.5, Albumin/Globulin Ratio 0.8 L 11/04/19 03:55: Troponin I 0.362 H 11/04/19 06:50: Troponin I Pending Current Medications Acetaminophen (Tylenol) 650 mg PO Q4H PRN PRN PRN Reason: Pain Score 1-10/Temp > 100.7 F Al Hydroxide/Mg Hydroxide (Mylanta Ii) 30 ml PO Q6H PRN PRN PRN Reason: Gastric Burning Albuterol Sulfate (Ventolin Aerosols) 2.5 mg INHALATION Q2H PRN PRN PRN Reason: Dyspnea, wheezing Dextrose (D50w Syringe) 0 gm IV X1 PRN; Protocol PRN Reason: Hypoglycemia Enoxaparin Sodium (Lovenox) 140 mg SC BID [facility] Last Admin: 11/04/19 00:36 Dose: 140 mg Documented by: Folic Acid (Folic Acid) 1 mg PO DAILYCM HEMANT Gabapentin (Neurontin) 100 mg PO TIDCM PRN PRN Reason: P Glucagon () 1 mg IM .X1 PRN PRN Reason: Hypoglycemia Guaifenesin (Robitussin) 10 ml PO Q4H PRN PRN PRN Reason: COUGH Hydralazine HCl (Apresoline Iv) 10 mg IV Q4H PRN PRN PRN Reason: SBP > 160 Sodium Chloride () 1,000 mls @ 125 mls/hr IV .Q8H [facility] Last Admin: 11/04/19 01:18 Dose: 125 mls/hr Documented by: Piperacillin Sod/Tazobactam (Sod 3.375 gm/ Sodium Chloride) 50 mls @ 12.5 mls/hr IV Q8@0200,1000,1800 [facility] Last Infusion: 11/04/19 06:32 Dose: Infused Documented by: Vancomycin IV Pharmacy to Dose (1 ea/ Sodium Chloride) 500 mls @ 250 mls/hr IV PRN PRN; Protocol PRN Reason: Rx to Dose Amiodarone HCl 360 mg/ (Dextrose) 200 mls @ 16.667 mls/hr CONT INF .Q12H [facility] Stop: 11/04/19 21:26 Last Admin: 11/04/19 03:32 Dose: 0.5 mg/min, 16.7 mls/hr Documented by: Sodium Chloride () 250 mls @ 15 mls/hr IV .[id number] PRN PRN Reason: Saline Flush Sodium Chloride () 250 mls @ 15 mls/hr IV .[id number] PRN PRN Reason: Additional IVPB Infusion Vancomycin HCl 1,500 mg/ (Sodium Chloride) 530 mls @ 250 mls/hr IV Q12H [facility] Magnesium Sulfate () 4 gm in 100 mls @ 25 mls/hr IV X1 ONE Stop: 11/04/19 10:26 Last Admin: 11/04/19 06:53 Dose: 25 mls/hr Documented by: Ibuprofen (Motrin) 600 mg PO Q6H PRN PRN PRN Reason: Fever, pain 1-10/10 Magnesium Hydroxide (Milk Of Magnesia) 30 ml PO DAILY PRN PRN PRN Reason: Constipation Melatonin (Melatonin) 3 mg PO QHS PRN PRN PRN Reason: INSOMNIA Metoprolol Tartrate (Lopressor (Beta Edna)) 5 mg IV X1 ONE Stop: 11/04/19 22:25 Last Admin: 11/03/19 22:26 Dose: 5 mg Documented by: Metoprolol Tartrate (Lopressor (Beta Edna)) 25 mg PO BID [facility] Morphine Sulfate () 2 mg IV Q3H PRN PRN PRN Reason: Pain Score 6-10/10 Nitroglycerin (Nitrostat) 0.4 mg SUBLINGUAL Q5M PRN PRN Reason: CARDIAC/CHEST PAIN Non-Formulary Medication (Finasteride [Propecia]) 1 mg PO DAILY [facility] Non-Formulary Medication (Oxycodone Hcl/Acetaminophen) 1 tablet PO Q4H PRN PRN PRN Reason: P Ondansetron HCl (Zofran) 4 mg IV Q8H PRN PRN PRN Reason: NAUSEA/VOMITING Pantoprazole Sodium (Protonix) 40 mg PO QHS [facility] Last Admin: 11/04/19 00:37 Dose: 40 mg Documented by: Prochlorperazine Edisylate (Compazine Iv) 5 mg IV Q4H PRN PRN PRN Reason: Breakthrough Nausea/Vomiting Psyllium Hydrophilic Mucilloid (Metamucil) 1 packet PO DAILY PRN PRN PRN Reason: Constipation Senna/Docusate Sodium (Senokot-S, Radha-Colace) 2 tablet PO BID PRN PRN PRN Reason: Constipation Sodium Chloride () 10 - 40 ml IV UD PRN PRN Reason: SALINE FLUSH Last Admin: 11/04/19 04:56 Dose: 40 ml Documented by: Throat Lozenges (Cepacol Sore Throat Lozenge) 1 lozenge MUCOUS MEM Q2H PRN PRN PRN Reason: SORE THROAT STROKE Vital Signs/Narrative: Vital Signs Temp Pulse Resp BP Pulse Ox 11/04/19 07:00 101.3 F H 82 24 H 96/62 97 11/04/19 06:00 101.3 F H 83 27 H 96/62 97 11/04/19 05:00 101.5 F H 85 27 H 96/63 98 11/04/19 04:00 101.5 F H 88 26 H 95/84 H 97 11/04/19 03:44 89 Medical Necessity - Tobacco Use Smoking Status: Former smoker Tobacco Use: Non-smoker Assessment/Plan All Active Problems Suspected COVID-19 virus infection (Acute) Acute respiratory failure with hypoxia (Acute) Severe sepsis (Acute) Encephalopathy acute (Acute) Atrial fibrillation with RVR (Acute) 74 y/o male with PMHx of Rheumatic arthritis, PAF s/p ablation, on Eliquis (last dose this AM), Hypertension, Morbid Obesity, who comes in fever, cough and shortness of breath. 1. Acute metabolic encephalopathy secondary severe sepsis, resolving Will continue to monitor 2. Severe sepsis, streptococcus bacteremia, unclear etiology, persistent Patient has left posterior ankle ulcer which may be the entry point of bacteria CXR is negative for infiltrates. Lactic acid remains elevated. Not necessarily from severe sepsis alone but also from hypoxia Started on IVF per sepsis protocol but we cannot continue on IVF as patient's overall outcome will be very poor on continuous IVF >125mls/hr May require cautious amounts of IVF later Will continue on IV vancomycin and Zosyn 3. Acute hypoxic respiratory insufficiency secondary to flash pulmonary edema secondary to arrhythmia vs possible obesity hypoventilation syndrome BNpep is 43.3 but overall patient looks chronically volume overloaded Given Lasix 40mg IV x 1; will hold off IVF Negative infiltrates on CXR COVID-19 PCR is negative; Low suspicion of COVID-19, isolation precautions discontinued Patient is on 2L oxygen, will continue to wean off oxygen 4. Paroxysmal atrial fibrillation with RVR, secondary to #2, NSR now Patient was hypotensive in ED. s/p IV digoxin, s/p cardioversion x 2, On IV amiodarone drip, Lovenox SC BID Cardiology consulted, 5. Acute NSTEMI, no acute ST-T changes on EKG Likely secondary to cardioversion/ A. fib with RVR On Lovenox SC BID 6. [place]ONSON secondary to #2, Cr appears to be worse Hold Ibuprofen May have component of cardiorenal syndrome Will hold off IVF and monitor urine output. Given lasix 40mg IV x 1 7. Hypertension, BP is relatively low, On metoprolol 25mg BID, will monitor 8. Left lower extremity edema, possible DVT Doppler ultrasound pending On Lovenox SC BID 9. Rheumatoid Arthritis, was on Humira, methotrexate, Plaquenil Will continue to hold meds 10. Chronic normocytic anemia, stable Hb for now 11. BPH, on proscar, flomax 12. GERD, on PPI. 13. DVT Prophylaxis -on therapeutic Lovenox 14. Code status - Full code Inpatient E&M: 18610 Subs Hosp L3
--- NOTE | 2019-11-04 07:36 | CON.PCM_ITS ---
Problem List (1) Severe sepsis Status: Acute (2) Encephalopathy acute Status: Acute (3) Atrial fibrillation with RVR Status: Acute (4) HTN (hypertension) Status: Chronic Qualifiers: Hypertension type: essential hypertension Qualified Code(s): I10 - Essential (primary) hypertension (5) Morbid obesity Status: Chronic (6) Rheumatoid arthritis Status: Chronic Qualifiers: Rheumatoid arthritis location: unspecified site Rheumatoid factor presence: unspecified presence Qualified Code(s): M06.9 - Rheumatoid arthritis, unspecified (7) BPH (benign prostatic hyperplasia) Status: Chronic Qualifiers: Lower urinary tract symptom presence: unspecified whether lower urinary tract symptoms present Qualified Code(s): N40.0 - Benign prostatic hyperplasia without lower urinary tract symptoms (8) GERD (gastroesophageal reflux disease) Status: Chronic Qualifiers: Esophagitis presence: esophagitis presence not specified Qualified Code(s): K21.9 - Gastro-esophageal reflux disease without esophagitis Reason for Consult Date of Consultation: 11/04/19 Reason for Consultation: Sepsis History of Present Illness: The patient is a 74 year old M, with past medical history listed below, who presented was coming hospital on 11/03/2019 secondary to reported cough and fever to 103 ?F. Patient reportedly was confused on presentation and unable to provide a significant history. Patient's had reported that he began shaking and was noted to be febrile just prior to coming to the ER. Patient had reportedly been staying at home with no sick contacts. Patient does have a history of rheumatoid arthritis and does take methotrexate and Humira for the last 10 years. Patient reportedly had not had any myalgias, dysuria, shortness of breath or sore throat. Patient did report to me that he had 2 episodes of emesis prior to presentation. On presentation to the ER, patient was hypertensive at 152/110, tachycardic at 126 bpm and febrile at 103.2 ?F. EKG was obtained confirming atrial fibrillation with RVR and lactate was elevated at 3.3. Chest x-ray showed prominent interstitial markings with no distinct airway disease. Patient was given digoxin IV with little change. Patient was also given Tylenol and a liter of normal saline. Patient was also given amiodarone bolus and initiated on a drip. Patient was initiated on Vanco and Zosyn and admitted to the intensive care unit for further evaluation. Since being in the intensive care unit, patient has tested negative for COVID- 19. Patient's mental status is much improved with improvement in blood pressures. Patient states that he felt of his usual self until approximately 4:00 yesterday. Patient states he developed nausea and vomiting x2 along with a high fever. Patient does not believe that he aspirated. Patient has been dealing with an abrasion on his left heel, but does not report any increased pain in that area. Patient does state that he has had some increased edema recently. Patient states that he has been inside most of the time, but does occasionally go to the [employer] for distilled water for his sleep apnea machine. Patient is unaware of his settings. Patient does wear a mask when he goes outside of the home. Patient is anticoagulated at baseline secondary to his A. fib and denies any significant blood loss. Review of systems otherwise negative from a constitutional, HEENT, respiratory, cardiovascular, GI, genitourinary, musculoskeletal, skin, neurologic, psychiatric and hematologic system unless stated above. Past Medical History Past Medical History (Chronic Problems): Chronic Problems HTN (hypertension) (Chronic) Morbid obesity (Chronic) Rheumatoid arthritis (Chronic) BPH (benign prostatic hyperplasia) (Chronic) GERD (gastroesophageal reflux disease) (Chronic) Allergies hydrocodone bitartrate [From Vicodin] Allergy (Verified 11/03/19 19:33) Other Home Medications: Ambulatory Orders Medication Instructions Recorded Finasteride [Propecia] 1 mg PO DAILY 02/22/14 Folic Acid 1 mg PO DAILY 02/22/14 Hydrochlorothiazide 25 mg PO DAILY 02/22/14 Lutein 20 mg PO DAILY 02/22/14 Methotrexate 15 mg PO Q7D 02/22/14 Multivit-Min/FA/Lycopene/Lut 1 each PO DAILY 02/22/14 [Centrum Silver Tablet] [place]-3 Fatty Acids/Fish Oil [Fish 1 each PO DAILY 02/22/14 Oil 1,000 mg Softgel] Omeprazole [Prilosec] 40 mg PO QHS 02/22/14 Adalimumab [Humira] 40 mg SQ QWEEK 03/01/14 Metoprolol Succinate 12.5 mg PO DAILY 03/01/14 Oxycodone HCl/Acetaminophen 1 tablet PO Q4H PRN PRN #20 tablet 03/01/14 [Percocet 5/325] Apixaban [Eliquis] 5 mg PO BID 11/03/19 Fenofibrate 160 mg PO DAILY 11/03/19 Glipizide 5 mg PO BID 11/03/19 Lisinopril [Zestril] 40 mg PO DAILY 11/03/19 Pregabalin [Lyrica] 150 mg PO BID 11/03/19 Tamsulosin HCl 0.4 mg PO DAILY 11/03/19 Surgical History: - - Bilateral total hip replacement, bilateral total knee replacement, cataract surgery bilaterally. Psychiatric History: Depression Lives: Spouse/ Significant Other Smoking Status: Former smoker Tobacco Use: Non-smoker Alcohol: None Drugs: None - *Family History Maternal History Items: - - Patient notes maternal family history of macular degeneration otherwise denies any heart disease, diabetes or cancer. Paternal History Items: - - Patient notes his father passed at age 42, unclear specific reason, no medical history prior to his including heart disease, diabetes or cancer. Review of Systems Comment: See HPI Patient Problems: Active and Suspected Problems Suspected COVID-19 virus infection (Acute) Acute respiratory failure with hypoxia (Acute) Severe sepsis (Acute) Encephalopathy acute (Acute) Atrial fibrillation with RVR (Acute) Objective: All imaging was personally reviewed. Chest x-ray showed a possible right lower lobe infiltrate on presentation, but this has resolved by this morning. Patient has never had a pulmonary function test or echocardiogram at this hospital. - Physical Exam Vitals/I&O's: Vital Signs Temp Pulse Resp BP Pulse Ox 38.5 C H 82 24 H 96/62 97 11/04/19 07:00 11/04/19 07:00 11/04/19 07:00 11/04/19 07:00 11/04/19 07:00 Oxygen Flow Rate (L/min) 2 Oxygen Delivery Method Nasal Cannula Weight: 154 kg Body Mass Index (BMI) 44.8 Intake and Output for Last 24 Hours 11/02/19 11/03/19 11/04/19 23:59 23:59 23:59 Intake Total 1243 / 1483 2240 / 2240 Output Total 125 / 125 Balance 1243 / 1483 2115 / 2115 General: Alert, Oriented x3, Cooperative, No apparent distress, - - Morbidly obese. Speaking in full sentences. HEENT: Atraumatic, PERRLA, EOMI, Normocephalic, - - No scleral icterus or injection noted Oral: Moist Mucosa, No Gingival or Mucosal Lesions/ Ulcerations Neck: Supple, No Nodes, Trachea Midline, JVD, Right, - - Thick neck. Lungs: No rhonchi, No wheeze, No rales, Diminished, - - Symmetric expansion. Cardiovascular: Normal S1, Normal S2, No murmurs, Irregular Rate, No rub noted, No Gallop Abdomen: Bowel Sounds Present, Soft, Non Tender, Non-Distended, Obese Extremities: No cyanosis, Capillary Refill Less than 3 Seconds, Edema - 3+ lower extremities Skin: - - Abrasion noted on the left heel Musculoskeletal: No Tenderness to Palpation of Joints or Extremities Lymphatic: No Cervical, Supraclavicular, or Inguinal Adenopathy Neurological: Cranial nerves II-XII grossly intact, Neuro grossly intact, Motor Exam 5/5 strength throughout, - - Slightly decreased sensation of the lower extremities Psych/Mental Status: Alert and oriented to time, place, person, mood and affect Microbiology Past 72 Hours 11/03/19 19:50 Blood Culture (Wb) - Left Hand Blood Culture - Preliminary 11/03/19 20:40 Blood Culture (Wb) - Venous Blood Culture - Preliminary 11/03/19 21:30 Urine Catheter - Catheter Legionella Antigen - Final 11/03/19 21:30 Urine Catheter - Catheter Streptococcus pneumoniae Antigen (M - Final 11/03/19 20:40 Mucosa - Nasopharyngeal Respiratory Panel (PCR) - Final 11/03/19 20:40 Mucosa - Nasopharyngeal Coronavirus COVID-19 PCR - Final Laboratory Results 11/03/19 19:50: WBC 7.4, RBC 4.21 L, Hgb 10.4 L, Hct 34.7 L, MCV 82.4, MCH 24.7 L, MCHC 30.0 L, RDW Std Deviation 56.9 H, RDW Coeff of Meliza 19.7 H, Plt Count 162, MPV 9.5, Immature Gran % (Auto) 0.700, Neut % (Auto) 87.7 H, Lymph % (Auto) 6.8 L, [place] % (Auto) 4.2, Eos % (Auto) 0.5, Baso % (Auto) 0.1, Absolute Neuts (auto) 6.5, Absolute Lymphs (auto) 0.50 L, Nucleated RBC % 0, Differential Comment SCANNED 11/03/19 19:50: PT 14.7, INR 1.2, APTT 23.7 L 11/03/19 19:50: Sodium 139, Potassium 3.6, Chloride 108 H, Carbon Dioxide 24.0, Anion Gap 7, BUN 20 H, Creatinine 1.24, Estim Creat Clear Calc 59.96, Est GFR (MDRD) Af Amer 74, Est GFR (MDRD) Non-Af 61, BUN/Creatinine Ratio 16.1, Glucose 138 H, Calcium 9.0, Total Bilirubin 0.60, AST 29, ALT 36, Alkaline Phosphatase 56, Troponin I < 0.015, Total Protein 7.8, Albumin 3.6, Globulin 4.2, Albumin/Globulin Ratio 0.9 11/03/19 19:50: Lactic Acid 3.3 H* 11/03/19 19:50: Magnesium 1.4 L, Ferritin 17 L, Lactate Dehydrogenase 222, Total Creatine Kinase 96, Troponin I < 0.015, C-React Prot Ext Range 4.10 H, TSH 0.69 11/03/19 19:50: B-Natriuretic Peptide 43.3 11/03/19 20:40: COVID-19 ([place]) Cancelled 11/03/19 21:30: Urine Color Yellow, Urine Clarity Clear, Urine pH 5.0, Ur Specific [place] 1.010, Urine Protein 15 H, Urine Glucose (UA) Normal, Urine Ketones 5 H, Urine Occult Blood 250 H, Urine Nitrite Negative, Urine Bilirubin Negative, Urine Urobilinogen 1 H, Ur Leukocyte Esterase 100 H, Urine RBC 0-5 SEEN, Urine WBC 0 SEEN, Ur Squamous Epith Cells 0 SEEN, Urine Bacteria 0 SEEN, Urine Mucus 0 SEEN 11/03/19 23:45: Fibrinogen 294, D-Dimer Quant (PE/DVT) 1.99 H* 11/03/19 23:45: Hemoglobin A1c 6.1 11/03/19 23:45: Procalcitonin 8.80 H 11/03/19 23:45: MRSA (PCR) Negative 11/03/19 23:45: Lactic Acid 4.0 H* 11/04/19 03:55: WBC 16.1 H, RBC 3.76 L, Hgb 9.3 L, Hct 31.5 L, MCV 83.8, MCH 24.7 L, MCHC 29.5 L, RDW Std Deviation 59.3 H, RDW Coeff of Meliza 19.5 H, Plt Count 160, MPV 9.8, Immature Gran % (Auto) 1.500 H, Neut % (Auto) 84.9 H, Lymph % (Auto) 4.5 L, [place] % (Auto) 8.2, Eos % (Auto) 0.7, Baso % (Auto) 0.2, Absolute Neuts (auto) 13.7 H, Absolute Lymphs (auto) 0.73 L, Nucleated RBC % 0.1, Differential Comment , Hypochromasia 1+, Anisocytosis 1+ 11/04/19 03:55: Sodium 139, Potassium 3.5, Chloride 106, Carbon Dioxide 22.0, Anion Gap 11, BUN 25 H, Creatinine 2.26 H, Estim Creat Clear Calc 32.90, Est GFR (MDRD) Af Amer 37 L, Est GFR (MDRD) Non-Af 30 L, BUN/Creatinine Ratio 11.1, Glucose 107 H, Calcium 8.0 L, Total Bilirubin 1.00, AST 40 H, ALT 41, Alkaline Phosphatase 34 L, Total Protein 6.4, Albumin 2.9 L, Globulin 3.5, Albumin/Globulin Ratio 0.8 L 11/04/19 03:55: Troponin I 0.362 H 11/04/19 06:50: Troponin I 0.506 H Clinical Impression(s) from Imaging Studies Chest X-Ray 11/03/19 19:52 IMPRESSION: Prominent interstitial markings and pulmonary vasculature with no distinct focal airspace disease. Electronically Signed: Tien Mendez DO at 20:46 EDT , Service support , Current Medications Acetaminophen (Tylenol) 650 mg PO Q4H PRN PRN PRN Reason: Pain Score 1-10/Temp > 100.7 F Al Hydroxide/Mg Hydroxide (Mylanta Ii) 30 ml PO Q6H PRN PRN PRN Reason: Gastric Burning Albuterol Sulfate (Ventolin Aerosols) 2.5 mg INHALATION Q2H PRN PRN PRN Reason: Dyspnea, wheezing Dextrose (D50w Syringe) 0 gm IV X1 PRN; Protocol PRN Reason: Hypoglycemia Enoxaparin Sodium (Lovenox) 140 mg SC BID [facility]EMANT Last Admin: 11/04/19 00:36 Dose: 140 mg Documented by: Folic Acid (Folic Acid) 1 mg PO DAILYCM HEMANT Gabapentin (Neurontin) 100 mg PO TIDCM PRN PRN Reason: P Glucagon () 1 mg IM .X1 PRN PRN Reason: Hypoglycemia Guaifenesin (Robitussin) 10 ml PO Q4H PRN PRN PRN Reason: COUGH Hydralazine HCl (Apresoline Iv) 10 mg IV Q4H PRN PRN PRN Reason: SBP > 160 Sodium Chloride () 1,000 mls @ 125 mls/hr IV .Q8H [facility] Last Admin: 11/04/19 01:18 Dose: 125 mls/hr Documented by: Piperacillin Sod/Tazobactam (Sod 3.375 gm/ Sodium Chloride) 50 mls @ 12.5 mls/hr IV Q8@0200,1000,1800 [facility]EM[facility] Last Infusion: 11/04/19 06:32 Dose: Infused Documented by: Vancomycin IV Pharmacy to Dose (1 ea/ Sodium Chloride) 500 mls @ 250 mls/hr IV PRN PRN; Protocol PRN Reason: Rx to Dose Amiodarone HCl 360 mg/ (Dextrose) 200 mls @ 16.667 mls/hr CONT INF .Q12H [facility] Stop: 11/04/19 21:26 Last Admin: 11/04/19 03:32 Dose: 0.5 mg/min, 16.7 mls/hr Documented by: Sodium Chloride () 250 mls @ 15 mls/hr IV .[id number] PRN PRN Reason: Saline Flush Sodium Chloride () 250 mls @ 15 mls/hr IV .[id number] PRN PRN Reason: Additional IVPB Infusion Vancomycin HCl 1,500 mg/ (Sodium Chloride) 530 mls @ 250 mls/hr IV Q12H [facility] Magnesium Sulfate () 4 gm in 100 mls @ 25 mls/hr IV X1 ONE Stop: 11/04/19 10:26 Last Admin: 11/04/19 06:53 Dose: 25 mls/hr Documented by: Ibuprofen (Motrin) 600 mg PO Q6H PRN PRN PRN Reason: Fever, pain 1-10/10 Magnesium Hydroxide (Milk Of Magnesia) 30 ml PO DAILY PRN PRN PRN Reason: Constipation Melatonin (Melatonin) 3 mg PO QHS PRN PRN PRN Reason: INSOMNIA Metoprolol Tartrate (Lopressor (Beta Edna)) 5 mg IV X1 ONE Stop: 11/04/19 22:25 Last Admin: 11/03/19 22:26 Dose: 5 mg Documented by: Metoprolol Tartrate (Lopressor (Beta Edna)) 25 mg PO BID [facility] Morphine Sulfate () 2 mg IV Q3H PRN PRN PRN Reason: Pain Score 6-10/10 Nitroglycerin (Nitrostat) 0.4 mg SUBLINGUAL Q5M PRN PRN Reason: CARDIAC/CHEST PAIN Non-Formulary Medication (Finasteride [Propecia]) 1 mg PO DAILY [facility] Non-Formulary Medication (Oxycodone Hcl/Acetaminophen) 1 tablet PO Q4H PRN PRN PRN Reason: P Ondansetron HCl (Zofran) 4 mg IV Q8H PRN PRN PRN Reason: NAUSEA/VOMITING Pantoprazole Sodium (Protonix) 40 mg PO QHS [facility] Last Admin: 11/04/19 00:37 Dose: 40 mg Documented by: Prochlorperazine Edisylate (Compazine Iv) 5 mg IV Q4H PRN PRN PRN Reason: Breakthrough Nausea/Vomiting Psyllium Hydrophilic Mucilloid (Metamucil) 1 packet PO DAILY PRN PRN PRN Reason: Constipation Senna/Docusate Sodium (Senokot-S, Radha-Colace) 2 tablet PO BID PRN PRN PRN Reason: Constipation Sodium Chloride () 10 - 40 ml IV UD PRN PRN Reason: SALINE FLUSH Last Admin: 11/04/19 04:56 Dose: 40 ml Documented by: Throat Lozenges (Cepacol Sore Throat Lozenge) 1 lozenge MUCOUS MEM Q2H PRN PRN PRN Reason: SORE THROAT Assessment/Plan Active and Suspected Problems Suspected COVID-19 virus infection (Acute) Acute respiratory failure with hypoxia (Acute) Severe sepsis (Acute) Encephalopathy acute (Acute) Atrial fibrillation with RVR (Acute) RECOMMENDATIONS: 1. Continue empiric antibiotics 2. Symptomatic therapy for fever 3. Continue amiodarone, obtain echocardiogram and cycle enzymes. Await cardiology recommendations 4. Reinitiate home CHRIST therapy 5. Likely repeat blood cultures at 24 hours 6. Okay to discontinue COVID precautions from my perspective IMPRESSIONS: 1. Severe sepsis secondary to probable gram-positive bacteremia Patient currently is in COVID precautions. Patient did have a high fever on presentation, but blood cultures have already come back positive for gram- positive cocci in all bottles. This may be a skin contaminant, but patient is appropriately on broad-spectrum antibiotics. Patient is immunosuppressed, so endocarditis would be a consideration. Agree with echocardiogram. May need to proceed with a R[place]. COVID testing has been negative. Patient may require repeat blood cultures in 24 hours to ensure clearance. Cannot exclude deterioration in the need for pressors pending immune response. 2. Acute metabolic encephalopathy secondary to #1 Patient appears to be much improved from presentation per the documentation. Patient is aware of his presentation. Patient had reported acute onset of fever yesterday with nausea and vomiting x2. Patient has not noticed any bleeding complications or other bowel symptoms. Continue with del irium protocol. 3. Acute hypoxic respiratory insufficiency Patient currently on 2 L nasal cannula and maintaining saturations well. Patient may have an element of pulmonary edema given anasarca on exam. Unclear baseline cardiac function. Given morbid obesity, hypertension and CHRIST, concern for diastolic dysfunction is significant. Patient did present with A. fib with RVR which would exacerbate this condition. We will continue to monitor and wean oxygen as tolerated. Encourage incentive spirometer. Right lower lobe early infiltrate appears to have resolved this morning. Patient did not receive positive pressure, but I believe this is secondary to better control of his rate with less pulmonary edema. 4. A. fib with RVR Unclear cardiac history at this time. Patient is receiving amiodarone. Echocardiogram has been ordered. Cardiology is consulted. Rate is currently controlled. May have issues if patient develops a new fever in controlling heart rate. 5. Hypertension/BPH/GERD/anasarca/advanced age/morbid obesity/chronic immunosuppression Complicates care, management, recovery and prognosis. Blood pressures right now are acceptable. Would continue with baseline medications except for immunosuppression. Patient may benefit from increased diuretics once more hemodynamically stable. Inpatient E&M: 40222 Init Hosp L3
[2019-11-04] MEDS: Folic Acid 1 MG Tablet PO (08:54)
[2019-11-04] MEDS: Metoprolol Tartrate 25 MG Tablet PO ×2 (09:27→21:46)
[2019-11-04] MEDS: Finasteride 5 MG Tablet PO (09:33)
--- NOTE | 2019-11-04 10:09 | CON.PCM_ITS ---
Problem List (1) Acute respiratory failure with hypoxia Status: Acute (2) Atrial fibrillation with RVR Status: Acute Reason for Consult Date of Consultation: 11/04/19 Reason for Consultation: Recurrence of atrial fibrillation with fast ventricular rate History of Present Illness: The patient is a 74 year old M [] Yesterday afternoon after cutting the lawn. He developed shortness of breath, palpitation, low-grade fever, nausea, vomiting and chills. He was extremely weak. He was seen in the emergency room and found to have atrial fibrillation with fast ventricular rate. Blood pressure was in the upper 80s. He was sedated and had cardioversion twice. It converted him to normal sinus rhythm. Patient had no recollection of it. Since then patient has been on IV amiodarone loading. Blood pressure has been holding. 6 years ago, patient had cardioversion followed by atrial fibrillation ablation. Since then he did well until yesterday. After admission patient was found to have positive blood culture growing gram-positive cocci in chain. Lactic acidosis was elevated. COVID-19 test was negative. Last night, he has been sleeping on one pillow. He denies any PND or orthopnea. Patient has been treated with methotrexate for rheumatoid arthritis. Patient is known to have hypertension. He denies any history of myocardial infarction, chest pain or CVA. He has been put on the metoprolol and Eliquis. 1 point in time, patient was taking amiodarone. At the moment, patient sitting up in a chair with tachypnea. There was intermittent short runs of atrial fibrillation. He is a non-smoker and drinks occasionally. He is known to have stage III renal insufficiency. EKG on admission in the emergency room was not available for review. Post cardioversion EKG showed sinus rhythm with no ischemic changes. Troponin was elevated. BNP was normal Past Medical History Allergies/Adverse Reactions: Allergies hydrocodone bitartrate [From Vicodin] Allergy (Verified 11/03/19 19:33) Other Home Medications: Ambulatory Orders Medication Instructions Recorded Finasteride [Propecia] 1 mg PO DAILY 02/22/14 Folic Acid 1 mg PO DAILY 02/22/14 Hydrochlorothiazide 25 mg PO DAILY 02/22/14 Lutein 20 mg PO DAILY 02/22/14 Methotrexate 15 mg PO Q7D 02/22/14 Multivit-Min/FA/Lycopene/Lut 1 each PO DAILY 02/22/14 [Centrum Silver Tablet] [place]-3 Fatty Acids/Fish Oil [Fish 1 each PO DAILY 02/22/14 Oil 1,000 mg Softgel] Omeprazole [Prilosec] 40 mg PO QHS 02/22/14 Adalimumab [Humira] 40 mg SQ QWEEK 03/01/14 Metoprolol Succinate 12.5 mg PO DAILY 03/01/14 Oxycodone HCl/Acetaminophen 1 tablet PO Q4H PRN PRN #20 tablet 03/01/14 [Percocet 5/325] Apixaban [Eliquis] 5 mg PO BID 11/03/19 Fenofibrate 160 mg PO DAILY 11/03/19 Glipizide 5 mg PO BID 11/03/19 Lisinopril [Zestril] 40 mg PO DAILY 11/03/19 Pregabalin [Lyrica] 150 mg PO BID 11/03/19 Tamsulosin HCl 0.4 mg PO DAILY 11/03/19 Past Medical History (Chronic Problems): Chronic Problems HTN (hypertension) (Chronic) Morbid obesity (Chronic) Rheumatoid arthritis (Chronic) BPH (benign prostatic hyperplasia) (Chronic) GERD (gastroesophageal reflux disease) (Chronic) Surgical History: noncontributory, - - Bilateral total hip replacement, bi lateral total knee replacement, cataract surgery bilaterally. Psychiatric History: Depression - *Family History Maternal History Items: No pertinent history, - - Patient notes maternal family history of macular degeneration otherwise denies any heart disease, diabetes or cancer. Paternal History Items: - - Patient notes his father passed at age 42, unclear specific reason, no medical history prior to his including heart disease, diabetes or cancer. Lives: Spouse/ Significant Other Smoking Status: Former smoker Tobacco Use: Non-smoker Alcohol: None Drugs: None Review of Systems - Review of Systems General: Reports: Fever, Weakness Cardiovascular: Reports: Shortness of Breath at Rest Respiratory: Reports: - - Tachypneic at rest Gastrointestinal: Denies: Hematemesis, Hematochezia, Melena Muscoloskeletal: Reports: Back Pain Psychiatric: Reports: Depression Objective: Vital Signs Temp Pulse Resp BP Pulse Ox 101.3 F H 81 24 H 112/60 97 11/04/19 07:00 11/04/19 09:27 11/04/19 07:00 11/04/19 09:27 11/04/19 07:09 Oxygen Flow Rate (L/min) 3 Oxygen Delivery Method Nasal Cannula Weight: 339 lb 8.19 oz Body Mass Index (BMI) 44.8 Intake and Output for Last 24 Hours 11/02/19 11/03/19 11/04/19 23:59 23:59 23:59 Intake Total 1243 / 1483 3204.58 / 3204.58 Output Total 125 / 125 Balance 1243 / 1483 3079.58 / 3079.58 General: Oriented x 3, Obese, - - Tachypneic at rest Neck: Supple Lungs: Clear to auscultation, Diminished Manny Bases, - - Keep neck at rest Cardiovascular: Regular Rhythm - Occasional short runs of atrial fibrillation, heart sounds distant, no murmur Vascular: No Carotid Bruits Abdomen: Non Tender, Obese, - Extremities: Bilateral Edema +3 Neurological: CN II-XII Intact Psych/Mental Status: Appropriate, Normal Affect, Anxious 11/03/19 19:50: WBC 7.4, RBC 4.21 L, Hgb 10.4 L, Hct 34.7 L, MCV 82.4, MCH 24.7 L, MCHC 30.0 L, Plt Count 162, MPV 9.5, Immature Gran % (Auto) 0.700, Neut % (Auto) 87.7 H, Lymph % (Auto) 6.8 L, [place] % (Auto) 4.2, Eos % (Auto) 0.5, Baso % (Auto) 0.1, Absolute Neuts (auto) 6.5, Nucleated RBC % 0 11/03/19 19:50: PT 14.7, INR 1.2, APTT 23.7 L 11/03/19 19:50: Sodium 139, Potassium 3.6, Chloride 108 H, Carbon Dioxide 24.0, Anion Gap 7, BUN 20 H, Creatinine 1.24, Est GFR (MDRD) Af Amer 74, Est GFR (MDRD) Non-Af 61, BUN/Creatinine Ratio 16.1, Glucose 138 H, Calcium 9.0, Total Bilirubin 0.60, Troponin I < 0.015 11/03/19 19:50: Lactic Acid 3.3 H* 11/03/19 19:50: Magnesium 1.4 L, Ferritin 17 L, Troponin I < 0.015 11/03/19 19:50: B-Natriuretic Peptide 43.3 11/03/19 21:30: Urine Color Yellow, Urine Clarity Clear, Urine pH 5.0, Ur Specific [place] 1.010, Urine Protein 15 H, Urine Glucose (UA) Normal, Urine Ketones 5 H, Urine Occult Blood 250 H, Urine Nitrite Negative, Urine Bilirubin Negative, Urine Urobilinogen 1 H, Ur Leukocyte Esterase 100 H, Urine RBC 0-5 SEEN, Urine WBC 0 SEEN 11/03/19 23:45: D-Dimer Quant (PE/DVT) 1.99 H* 11/03/19 23:45: Hemoglobin A1c 6.1 11/03/19 23:45: Lactic Acid 4.0 H* 11/04/19 03:55: WBC 16.1 H, RBC 3.76 L, Hgb 9.3 L, Hct 31.5 L, MCV 83.8, MCH 24.7 L, MCHC 29.5 L, Plt Count 160, MPV 9.8, Immature Gran % (Auto) 1.500 H, Neut % (Auto) 84.9 H, Lymph % (Auto) 4.5 L, [place] % (Auto) 8.2, Eos % (Auto) 0.7, Baso % (Auto) 0.2, Absolute Neuts (auto) 13.7 H, Nucleated RBC % 0.1 11/04/19 03:55: Sodium 139, Potassium 3.5, Chloride 106, Carbon Dioxide 22.0, Anion Gap 11, BUN 25 H, Creatinine 2.26 H, Est GFR (MDRD) Af Amer 37 L, Est GFR (MDRD) Non-Af 30 L, BUN/Creatinine Ratio 11.1, Glucose 107 H, Calcium 8.0 L, Total Bilirubin 1.00 11/04/19 03:55: Troponin I 0.362 H 11/04/19 06:50: Troponin I 0.506 H Rhythm: EKG: EKG in the emergency room was not available for review. Post cardioversion EKG showed normal sinus rhythm with no ischemic changes ECHO: Anding Stress Test: Cardiac Cath: PCI: CT Surgery: Holter monitor: EPS: PPM: CXR: Chest CT Scan: Assessment/Plan #1 recurrence of atrial fibrillation with fast ventricular rate, blood pressure was on the low side on admission. After cardioversion, blood pressure has gone back to normal. There was still intermittent short runs of atrial fibrillation. Patient on IV loading of amiodarone for the time being. I would recommend con tinue anticoagulation and switch over to amiodarone p.o. tomorrow. Low-dose metoprolol should be continued. Echocardiogram will be scheduled for tomorrow. There is no evidence of left ventricular decompensation at this point with no history of orthopnea or PND. BNP was normal. I have no objection about careful diuresis of 1 dose of Lasix. However we have to watch out for the stage III renal insufficiency which is also deteriorating with diuresis. CBC, BMP should be followed closely. Patient does have chronic swelling of the lower extremities. Patient does have hypochromic microcytic chronic anemia. Patient probably needs further work-up in the future. His shortness of breath is most likely secondary to pneumonia and sepsis. Blood culture is growing strep.
[2019-11-04] MEDS: Furosemide 40 MG/4 ML Vial IV (11:46)
[2019-11-04] MEDS: Acetaminophen 325 MG Tablet 650 MG PO ×2 (13:51→18:13)
[2019-11-04] MEDS: Pregabalin 75 MG Capsule 150 MG PO ×2 (15:29→21:46)
[2019-11-05] VITALS (30 sets, daily range): BP systolic 96–141; BP diastolic 52–86; PULSE 67–81; RESP 12–24; TEMP 37–38.2; O2SAT 92–100
[2019-11-05] MEDS: Acetaminophen 325 MG Tablet 650 MG PO ×2 (00:20→22:00)
[2019-11-05] MEDS: Amiodarone 360 MG in Dextrose 5% Viaflo Bag 192.8 ML 16.7 MG CONT INF (03:35)
[2019-11-05 03:58] LABS: Absolute Lymphocyte Count 1.09 X10^3/uL (0.83-4.51); Absolute Neutrophil Count 11.9 X10^3/uL (2.0-7.7); Basophil# 0.03 X10^3/uL; Basophil% 0.2 % (0-1); Eosinophil# 0.02 X10^3/uL; Eosinophils% 0.1 % (0-5); Hematocrit 30.5 % (40-54); Hemoglobin 9.1 g/dL (13.0-16.5); Lymphocyte # 1.09 X10^3/ul (4.0); Lymphocyte % 7.4 % (19-41); Mean Corp Hgb Conc 29.8 g/dL (32-36); Mean Corpuscular Hgb 24.6 pg (27.0-32.0); Mean Corpuscular Volume 82.4 fL (80-94); Monocyte# 1.01 X10^3/uL; Monocyte% 6.9 % (0-10); NRBC Flagged by Analyzer 0 % (0-5); Neutrophil # 11.93 X10^3/uL (2.7-7.7); Neutrophil % 81.2 % (47-70); POSITIVE MORPHOLOGY YES; Platelet Count 123 K/mm3 (150-450); RBC Distribution Width CV 19.5 % (11.6-14.6); RBC Distribution Width SD 58.4 fl (35.1-43.9); White Blood Count 14.7 K/mm3 (4.4-11.0)
[2019-11-05 03:59] LABS: Differential Indicated SCAN CRITERIA MET
[2019-11-05 04:12] LABS: Atypical Lymphocyte 1+ %; Differential Comment SCANNED
[2019-11-05 04:14] LABS: ALB/GLOB Ratio 0.7 RATIO (0.9-2.4); AST(SGOT) 934 U/L (15-37); Alanine Aminotransfer ALT/SGPT 578 U/L (16-61); Albumin, Serum 2.7 g/dL (3.2-5.0); Alkaline Phosphatase 29 U/L (45-117); Anion Gap 9 (5-15); BUN 41 mg/dL (7-18); BUN/Creat Ratio 13.7 RATIO (10-20); Calcium,Total 7.5 mg/dL (8.5-10.1); Chloride 106 mmol/L (98-107); EST Glomerular Filtration Rate 22 mL/min (>60); Est Glom Filt Rate - Afr Amer 27 mL/min (>60); Estimated Creatinine Clearance 24.78 ml/min; Globulin 3.8 g/dL (2.2-4.2); Glucose 75 mg/dL (74-106); Potassium 3.7 mmol/L (3.5-5.1); Protein, Total 6.5 g/dL (6.4-8.2); Sodium Level 137 mmol/L (136-145)
--- NOTE | 2019-11-05 07:13 | PCM.PN.INT ---
Subjective: The patient was seen and examined at the bedside this morning. Events from the last 24 hours have been reviewed. The patient is currently afebrile, hemodynamically stable and maintaining appropriate oxygen saturations on room air. Objective: The patient's most recent lab work, culture data and imaging studies have all been personally reviewed. Blood culture was positive for group B streptococcus. Respiratory viral panel was negative. Coronavirus PCR was negative. Strep and urine Legionella antigens were negative. Lower extremity Doppler study was negative. General: Alert, No apparent distress HEENT: Atraumatic, Normocephalic Oral: No Gingival or Mucosal Lesions/ Ulcerations Neck: Supple, No Nodes, Trachea Midline Lungs: No rhonchi, No wheeze, No rales, Diminished Cardiovascular: Regular rate, Regular Rhythm, Normal S1, Normal S2 Abdomen: Bowel Sounds Present, Soft, Non Tender, Obese Extremities: No clubbing, No cyanosis, Edema Skin: No breakdown Musculoskeletal: No Muscle Wasting Lymphatic: No Cervical, Supraclavicular, or Inguinal Adenopathy Neurological: Neuro grossly intact Psych/Mental Status: Normal Affect, Appropriate Vital Signs Temp Pulse Resp BP Pulse Ox 99.7 F H 67 20 H 107/60 95 11/05/19 04:00 11/05/19 06:00 11/05/19 06:00 11/05/19 06:00 11/05/19 05:00 Oxygen Flow Rate (L/min) 2 Oxygen Delivery Method Bi-pap Weight: 339 lb 8.19 oz Body Mass Index (BMI) 44.8 Intake and Output for Last 24 Hours 11/03/19 11/04/19 11/05/19 23:59 23:59 23:59 Intake Total 1243 / 1483 6331.12 / 6331.12 1203.46 / 1203.46 Output Total 1125 / 1125 350 / 350 Balance 1243 / 1483 5206.12 / 5206.12 853.46 / 853.46 Labs (Last 48 Hours) 11/03/19 11/03/19 11/03/19 19:50 19:50 19:50 WBC 7.4 RBC 4.21 L Hgb 10.4 L Hct 34.7 L MCV 82.4 MCH 24.7 L MCHC 30.0 L RDW Std Deviation 56.9 H RDW Coeff of Meliza 19.7 H Plt Count 162 MPV 9.5 Immature Gran % (Auto) 0.700 Neut % (Auto) 87.7 H Lymph % (Auto) 6.8 L [place] % (Auto) 4.2 Eos % (Auto) 0.5 Baso % (Auto) 0.1 Absolute Neuts (auto) 6.5 Absolute Lymphs (auto) 0.50 L Nucleated RBC % 0 Differential Comment SCANNED Atypical Lymphocytes Hypochromasia Anisocytosis PT 14.7 INR 1.2 APTT 23.7 L Fibrinogen D-Dimer Quant (PE/DVT) Sodium 139 Potassium 3.6 Chloride 108 H Carbon Dioxide 24.0 Anion Gap 7 BUN 20 H Creatinine 1.24 Estim Creat Clear Calc 59.96 Est GFR (MDRD) Af Amer 74 Est GFR (MDRD) Non-Af 61 BUN/Creatinine Ratio 16.1 Glucose 138 H Hemoglobin A1c Lactic Acid Calcium 9.0 Magnesium Ferritin Total Bilirubin 0.60 AST 29 ALT 36 Alkaline Phosphatase 56 Lactate Dehydrogenase Total Creatine Kinase Troponin I < 0.015 C-React Prot Ext Range B-Natriuretic Peptide Total Protein 7.8 Albumin 3.6 Globulin 4.2 Albumin/Globulin Ratio 0.9 Procalcitonin TSH Urine Color Urine Clarity Urine pH Ur Specific [place] Urine Protein Urine Glucose (UA) Urine Ketones Urine Occult Blood Urine Nitrite Urine Bilirubin Urine Urobilinogen Ur Leukocyte Esterase Urine RBC Urine WBC Ur Squamous Epith Cells Urine Bacteria Urine Mucus COVID-19 (KIRIT) MRSA (PCR) 11/03/19 11/03/19 11/03/19 19:50 19:50 19:50 WBC RBC Hgb Hct MCV MCH MCHC RDW Std Deviation RDW Coeff of Meliza Plt Count MPV Immature Gran % (Auto) Neut % (Auto) Lymph % (Auto) [place] % (Auto) Eos % (Auto) Baso % (Auto) Absolute Neuts (auto) Absolute Lymphs (auto) Nucleated RBC % Differential Comment Atypical Lymphocytes Hypochromasia Anisocytosis PT INR APTT Fibrinogen D-Dimer Quant (PE/DVT) Sodium Potassium Chloride Carbon Dioxide Anion Gap BUN Creatinine Estim Creat Clear Calc Est GFR (MDRD) Af Amer Est GFR (MDRD) Non-Af BUN/Creatinine Ratio Glucose Hemoglobin A1c Lactic Acid 3.3 H* Calcium Magnesium 1.4 L Ferritin 17 L Total Bilirubin AST ALT Alkaline Phosphatase Lactate Dehydrogenase 222 Total Creatine Kinase 96 Troponin I < 0.015 C-React Prot Ext Range 4.10 H B-Natriuretic Peptide 43.3 Total Protein Albumin Globulin Albumin/Globulin Ratio Procalcitonin TSH 0.69 Urine Color Urine Clarity Urine pH Ur Specific [place] Urine Protein Urine Glucose (UA) Urine Ketones Urine Occult Blood Urine Nitrite Urine Bilirubin Urine Urobilinogen Ur Leukocyte Esterase Urine RBC Urine WBC Ur Squamous Epith Cells Urine Bacteria Urine Mucus COVID-19 (KIRIT) MRSA (PCR) 11/03/19 11/03/19 11/03/19 20:40 21:30 23:45 WBC RBC Hgb Hct MCV MCH MCHC RDW Std Deviation RDW Coeff of Meliza Plt Count MPV Immature Gran % (Auto) Neut % (Auto) Lymph % (Auto) [place] % (Auto) Eos % (Auto) Baso % (Auto) Absolute Neuts (auto) Absolute Lymphs (auto) Nucleated RBC % Differential Comment Atypical Lymphocytes Hypochromasia Anisocytosis PT INR APTT Fibrinogen 294 D-Dimer Quant (PE/DVT) 1.99 H* Sodium Potassium Chloride Carbon Dioxide Anion Gap BUN Creatinine Estim Creat Clear Calc Est GFR (MDRD) Af Amer Est GFR (MDRD) Non-Af BUN/Creatinine Ratio Glucose Hemoglobin A1c Lactic Acid Calcium Magnesium Ferritin Total Bilirubin AST ALT Alkaline Phosphatase Lactate Dehydrogenase Total Creatine Kinase Troponin I C-React Prot Ext Range B-Natriuretic Peptide Total Protein Albumin Globulin Albumin/Globulin Ratio Procalcitonin TSH Urine Color Yellow Urine Clarity Clear Urine pH 5.0 Ur Specific [place] 1.010 Urine Protein 15 H Urine Glucose (UA) Normal Urine Ketones 5 H Urine Occult Blood 250 H Urine Nitrite Negative Urine Bilirubin Negative Urine Urobilinogen 1 H Ur Leukocyte Esterase 100 H Urine RBC 0-5 SEEN Urine WBC 0 SEEN Ur Squamous Epith Cells 0 SEEN Urine Bacteria 0 SEEN Urine Mucus 0 SEEN COVID-19 (KIRIT) Cancelled MRSA (PCR) 11/03/19 11/03/19 11/03/19 23:45 23:45 23:45 WBC RBC Hgb Hct MCV MCH MCHC RDW Std Deviation RDW Coeff of Meliza Plt Count MPV Immature Gran % (Auto) Neut % (Auto) Lymph % (Auto) [place] % (Auto) Eos % (Auto) Baso % (Auto) Absolute Neuts (auto) Absolute Lymphs (auto) Nucleated RBC % Differential Comment Atypical Lymphocytes Hypochromasia Anisocytosis PT INR APTT Fibrinogen D-Dimer Quant (PE/DVT) Sodium Potassium Chloride Carbon Dioxide Anion Gap BUN Creatinine Estim Creat Clear Calc Est GFR (MDRD) Af Amer Est GFR (MDRD) Non-Af BUN/Creatinine Ratio Glucose Hemoglobin A1c 6.1 Lactic Acid Calcium Magnesium Ferritin Total Bilirubin AST ALT Alkaline Phosphatase Lactate Dehydrogenase Total Creatine Kinase Troponin I C-React Prot Ext Range B-Natriuretic Peptide Total Protein Albumin Globulin Albumin/Globulin Ratio Procalcitonin 8.80 H TSH Urine Color Urine Clarity Urine pH Ur Specific [place] Urine Protein Urine Glucose (UA) Urine Ketones Urine Occult Blood Urine Nitrite Urine Bilirubin Urine Urobilinogen Ur Leukocyte Esterase Urine RBC Urine WBC Ur Squamous Epith Cells Urine Bacteria Urine Mucus COVID-19 (KIRIT) MRSA (PCR) Negative 11/03/19 11/04/19 11/04/19 23:45 03:55 03:55 WBC 16.1 H RBC 3.76 L Hgb 9.3 L Hct 31.5 L MCV 83.8 MCH 24.7 L MCHC 29.5 L RDW Std Deviation 59.3 H RDW Coeff of Meliza 19.5 H Plt Count 160 MPV 9.8 Immature Gran % (Auto) 1.500 H Neut % (Auto) 84.9 H Lymph % (Auto) 4.5 L [place] % (Auto) 8.2 Eos % (Auto) 0.7 Baso % (Auto) 0.2 Absolute Neuts (auto) 13.7 H Absolute Lymphs (auto) 0.73 L Nucleated RBC % 0.1 Differential Comment Atypical Lymphocytes Hypochromasia 1+ Anisocytosis 1+ PT INR APTT Fibrinogen D-Dimer Quant (PE/DVT) Sodium 139 Potassium 3.5 Chloride 106 Carbon Dioxide 22.0 Anion Gap 11 BUN 25 H Creatinine 2.26 H Estim Creat Clear Calc 32.90 Est GFR (MDRD) Af Amer 37 L Est GFR (MDRD) Non-Af 30 L BUN/Creatinine Ratio 11.1 Glucose 107 H Hemoglobin A1c Lactic Acid 4.0 H* Calcium 8.0 L Magnesium Ferritin Total Bilirubin 1.00 AST 40 H ALT 41 Alkaline Phosphatase 34 L Lactate Dehydrogenase Total Creatine Kinase Troponin I C-React Prot Ext Range B-Natriuretic Peptide Total Protein 6.4 Albumin 2.9 L Globulin 3.5 Albumin/Globulin Ratio 0.8 L Procalcitonin TSH Urine Color Urine Clarity Urine pH Ur Specific [place] Urine Protein Urine Glucose (UA) Urine Ketones Urine Occult Blood Urine Nitrite Urine Bilirubin Urine Urobilinogen Ur Leukocyte Esterase Urine RBC Urine WBC Ur Squamous Epith Cells Urine Bacteria Urine Mucus COVID-19 (KIRIT) MRSA (PCR) 11/04/19 11/04/19 11/05/19 03:55 06:50 03:50 WBC 14.7 H RBC 3.70 L Hgb 9.1 L Hct 30.5 L MCV 82.4 MCH 24.6 L MCHC 29.8 L RDW Std Deviation 58.4 H RDW Coeff of [place]iza 19.5 H Plt Count 123 L MPV 10.0 Immature Gran % (Auto) 4.200 H Neut % (Auto) 81.2 H Lymph % (Auto) 7.4 L [place] % (Auto) 6.9 Eos % (Auto) 0.1 Baso % (Auto) 0.2 Absolute Neuts (auto) 11.9 H Absolute Lymphs (auto) 1.09 Nucleated RBC % 0 Differential Comment SCANNED Atypical Lymphocytes 1+ Hypochromasia Anisocytosis PT INR APTT Fibrinogen D-Dimer Quant (PE/DVT) Sodium Potassium Chloride Carbon Dioxide Anion Gap BUN Creatinine Estim Creat Clear Calc Est GFR (MDRD) Af Amer Est GFR (MDRD) Non-Af BUN/Creatinine Ratio Glucose Hemoglobin A1c Lactic Acid Calcium Magnesium Ferritin Total Bilirubin AST ALT Alkaline Phosphatase Lactate Dehydrogenase Total Creatine Kinase Troponin I 0.362 H 0.506 H C-React Prot Ext Range B-Natriuretic Peptide Total Protein Albumin Globulin Albumin/Globulin Ratio Procalcitonin TSH Urine Color Urine Clarity Urine pH Ur Specific [place] Urine Protein Urine Glucose (UA) Urine Ketones Urine Occult Blood Urine Nitrite Urine Bilirubin Urine Urobilinogen Ur Leukocyte Esterase Urine RBC Urine WBC Ur Squamous Epith Cells Urine Bacteria Urine Mucus COVID-19 (KIRIT) MRSA (PCR) 11/05/19 03:50 WBC RBC Hgb Hct MCV MCH MCHC RDW Std Deviation RDW Coeff of Meliza Plt Count MPV Immature Gran % (Auto) Neut % (Auto) Lymph % (Auto) [place] % (Auto) Eos % (Auto) Baso % (Auto) Absolute Neuts (auto) Absolute Lymphs (auto) Nucleated RBC % Differential Comment Atypical Lymphocytes Hypochromasia Anisocytosis PT INR APTT Fibrinogen D-Dimer Quant (PE/DVT) Sodium 137 Potassium 3.7 Chloride 106 Carbon Dioxide 22.0 Anion Gap 9 BUN 41 H Creatinine 3.00 H Estim Creat Clear Calc 24.78 Est GFR (MDRD) Af Amer 27 L Est GFR (MDRD) Non-Af 22 L BUN/Creatinine Ratio 13.7 Glucose 75 Hemoglobin A1c Lactic Acid Calcium 7.5 L Magnesium Ferritin Total Bilirubin 1.20 H AST 934 H ALT 578 H Alkaline Phosphatase 29 L Lactate Dehydrogenase Total Creatine Kinase Troponin I C-React Prot Ext Range B-Natriuretic Peptide Total Protein 6.5 Albumin 2.7 L Globulin 3.8 Albumin/Globulin Ratio 0.7 L Procalcitonin TSH Urine Color Urine Clarity Urine pH Ur Specific [place] Urine Protein Urine Glucose (UA) Urine Ketones Urine Occult Blood Urine Nitrite Urine Bilirubin Urine Urobilinogen Ur Leukocyte Esterase Urine RBC Urine WBC Ur Squamous Epith Cells Urine Bacteria Urine Mucus COVID-19 (KIRIT) MRSA (PCR) Microbiology 11/03/19 21:30 Urine, Clean Catch Urine Culture - Preliminary Culture exhibits no growth. 11/03/19 20:40 Blood Culture (Wb) - Venous Bacteria Detection (PCR) - Final Streptococcus agalactiae (B) 11/03/19 20:40 Blood Culture (Wb) - Venous Blood Culture - Preliminary 11/03/19 19:50 Blood Culture (Wb) - Left Hand Blood Culture - Preliminary 11/03/19 21:30 Urine Catheter - Catheter Legionella Antigen - Final 11/03/19 21:30 Urine Catheter - Catheter Streptococcus pneumoniae Antigen (M - Final 11/03/19 20:40 Mucosa - Nasopharyngeal Respiratory Panel (PCR) - Final 11/03/19 20:40 Mucosa - Nasopharyngeal Coronavirus COVID-19 PCR - Final Clinical Impression(s) from Imaging Studies Chest X-Ray 11/03/19 19:52 IMPRESSION: Prominent interstitial markings and pulmonary vasculature with no distinct focal airspace disease. Electronically Signed: Tien Mendez DO at 20:46 EDT , Service support , Chest X-Ray 11/04/19 04:40 IMPRESSION: Stable left pulmonary granuloma and left hilar calcifications. Electronically Signed: Peewee Mendieta DO at 13:13 EDT Tel [phone], Service support , Medical Necessity - Tobacco Use Smoking Status: Former smoker Tobacco Use: Non-smoker Assessment/Plan All Active Problems Suspected COVID-19 virus infection (Acute) Acute respiratory failure with hypoxia (Acute) Severe sepsis (Acute) Encephalopathy acute (Acute) Atrial fibrillation with RVR (Acute) RECOMMENDATIONS: 1. Continue rate/rhythm control strategy per cardiology recommendations. 2. Okay to continue Zosyn. Vancomycin can be discontinued. 3. Obtain echocardiogram. 4. Continue nocturnal BiPAP therapy per home regimen. 5. Obtain repeat blood cultures. 6. Will sign off from a critical care perspective. IMPRESSIONS: 1. Severe sepsis secondary to probable gram-positive bacteremia The patient has been adequately volume resuscitated and remains hemodynamically stable. Recommend obtaining repeat blood cultures and continuing empiric antimicrobials in the interim. Vancomycin, however, can be discontinued. Echocardiogram is pending. 2. Acute hypoxic respiratory insufficiency Resolved. The patient has been weaned to room air as of this morning. Likely secondary to pulmonary edema in the setting of atrial fibrillation with RVR. Oxygenation status has improved with medical management of the aforementioned. 3. A. fib with RVR Cardiology is currently following to assist with medical management. Continue current rate/rhythm control strategy. 4. Hypertension/BPH/GERD/anasarca/advanced age/morbid obesity/chronic immunosuppression/CHRIST Complicates care, management, recovery and prognosis. Immunosuppressive agents are currently on hold. Continue nocturnal Pap therapy per home regimen. This note was generated with '[employer] dictation software. It may contain incorrect words, spelling, and punctuation that were not noted in checking the note before signing. Inpatient E&M: [id number] [facility] L3
[2019-11-05] MEDS: Folic Acid 1 MG Tablet PO (08:11)
[2019-11-05] MEDS: Fenofibrate 145 MG Tablet PO (08:11)
[2019-11-05 09:32] LABS: Vancomycin, Trough Level 27.2 ug/mL (5.0-15.0)
[2019-11-05] MEDS: Metoprolol Tartrate 25 MG Tablet PO ×2 (09:34→21:58)
[2019-11-05] MEDS: Tamsulosin HCl 0.4 MG Capsule PO (09:35)
[2019-11-05] MEDS: Enoxaparin 150 MG/ML Syringe 140 MG SC (09:35)
[2019-11-05] MEDS: Finasteride 5 MG Tablet PO (09:35)
[2019-11-05] MEDS: Pregabalin 75 MG Capsule 150 MG PO ×2 (09:45→21:59)
--- NOTE | 2019-11-05 10:09 | PCM.PN.HOSP ---
Patient Problems: Active and Suspected Problems Suspected COVID-19 virus infection (Acute) Acute respiratory failure with hypoxia (Acute) Severe sepsis (Acute) Encephalopathy acute (Acute) Atrial fibrillation with RVR (Acute) Reason for Visit: Severe sepsis, acute hypoxic respiratory insufficiency secondary to flash pulmonary edema Vitals/I&O's: Vital Signs Temp Pulse Resp BP Pulse Ox 100.1 F H 79 16 113/55 L 96 11/05/19 08:59 11/05/19 09:34 11/05/19 08:59 11/05/19 09:34 11/05/19 08:59 Oxygen Flow Rate (L/min) 2 Oxygen Delivery Method Room Air Weight: 339 lb 8.19 oz Body Mass Index (BMI) 44.8 Intake and Output for Last 24 Hours 11/03/19 11/04/19 11/05/19 23:59 23:59 23:59 Intake Total 1243 / 1483 6331.12 / 6331.12 1203.46 / 1203.46 Output Total 1125 / 1125 350 / 350 Balance 1243 / 1483 5206.12 / 5206.12 853.46 / 853.46 General: Alert, Oriented x3, Cooperative HEENT: Atraumatic, PERRLA, EOMI, Normocephalic Neck: Supple, No JVD, Negative Carotid Bruits Lungs: Clear to auscultation, No rhonchi, No wheeze, No rales, Diminished - Air entry diminished bilaterally., Short of Breath Cardiovascular: Regular rate, Normal S1, Normal S2, No murmurs, Irregular Rate - Sometimes PVCs with once 3 beats of NSVT Abdomen: Bowel Sounds Present, Soft, Non Tender Extremities: Capillary Refill Less than 3 Seconds, Edema Skin: No rashes, No breakdown Musculoskeletal: No Tenderness to Palpation of Joints or Extremities, Arthritic Changes Neurological: Cranial nerves II-XII grossly intact, Deep Tendon Reflexes 2+/4 and Symmetrical, Neuro grossly intact Psych/Mental Status: Normal Affect, Appropriate Microbiology Past 72 Hours 11/03/19 20:40 Blood Culture (Wb) - Venous Bacteria Detection (PCR) - Final Streptococcus agalactiae (B) 11/03/19 20:40 Blood Culture (Wb) - Venous Blood Culture - Preliminary Streptococcus agalactiae (B) 11/03/19 19:50 Blood Culture (Wb) - Left Hand Blood Culture - Preliminary 11/03/19 21:30 Urine, Clean Catch Urine Culture - Preliminary Culture exhibits no growth. 11/03/19 21:30 Urine Catheter - Catheter Legionella Antigen - Final 11/03/19 21:30 Urine Catheter - Catheter Streptococcus pneumoniae Antigen (M - Final 11/03/19 20:40 Mucosa - Nasopharyngeal Respiratory Panel (PCR) - Final 11/03/19 20:40 Mucosa - Nasopharyngeal Coronavirus COVID-19 PCR - Final Laboratory Results 11/05/19 03:50: WBC 14.7 H, RBC 3.70 L, Hgb 9.1 L, Hct 30.5 L, MCV 82.4, MCH 24.6 L, MCHC 29.8 L, RDW Std Deviation 58.4 H, RDW Coeff of Meliza 19.5 H, Plt Count 123 L, MPV 10.0, Immature Gran % (Auto) 4.200 H, Neut % (Auto) 81.2 H, Lymph % (Auto) 7.4 L, [place] % (Auto) 6.9, Eos % (Auto) 0.1, Baso % (Auto) 0.2, Absolute Neuts (auto) 11.9 H, Absolute Lymphs (auto) 1.09, Nucleated RBC % 0, Differential Comment SCANNED, Atypical Lymphocytes 1+ 11/05/19 03:50: Sodium 137, Potassium 3.7, Chloride 106, Carbon Dioxide 22.0, Anion Gap 9, BUN 41 H, Creatinine 3.00 H, Estim Creat Clear Calc 24.78, Est GFR (MDRD) Af Amer 27 L, Est GFR (MDRD) Non-Af 22 L, BUN/Creatinine Ratio 13.7, Glucose 75, Calcium 7.5 L, Total Bilirubin 1.20 H, AST 934 H, ALT 578 H, Alkaline Phosphatase 29 L, Total Protein 6.5, Albumin 2.7 L, Globulin 3.8, Albumin/Globulin Ratio 0.7 L 11/05/19 09:00: Vancomycin Trough 27.2 H Current Medications Acetaminophen (Tylenol) 650 mg PO Q4H PRN PRN PRN Reason: Pain Score 1-10/Temp > 100.7 F Last Admin: 11/05/19 00:20 Dose: 650 mg Documented by: Al Hydroxide/Mg Hydroxide (Mylanta Ii) 30 ml PO Q6H PRN PRN PRN Reason: Gastric Burning Albuterol Sulfate (Ventolin Aerosols) 2.5 mg INHALATION Q2H PRN PRN PRN Reason: Dyspnea, wheezing Dextrose (D50w Syringe) 0 gm IV X1 PRN; Protocol PRN Reason: Hypoglycemia Enoxaparin Sodium (Lovenox) 140 mg SC BID [facility] Last Admin: 11/05/19 09:35 Dose: 140 mg Documented by: Fenofibrate (Tricor) 145 mg PO DAILYCM [facility] Last Admin: 11/05/19 08:11 Dose: 145 mg Documented by: Finasteride (Proscar) 5 mg PO DAILY [facility] Last Admin: 11/05/19 09:35 Dose: 5 mg Documented by: [facility] Last Admin: 11/05/19 08:11 Dose: 1 mg Documented by: Glucagon () 1 mg IM .X1 PRN PRN Reason: Hypoglycemia Guaifenesin (Robitussin) 10 ml PO Q4H PRN PRN PRN Reason: COUGH Hydralazine HCl (Apresoline Iv) 10 mg IV Q4H PRN PRN PRN Reason: SBP > 160 Piperacillin Sod/Tazobactam (Sod 3.375 gm/ Sodium Chloride) 50 mls @ 12.5 mls/hr IV Q8@0200,1000,1800 [facility] Last Admin: 11/05/19 09:45 Dose: 12.5 mls/hr Documented by: Vancomycin IV Pharmacy to Dose (1 ea/ Sodium Chloride) 500 mls @ 250 mls/hr IV PRN PRN; Protocol PRN Reason: Rx to Dose Sodium Chloride () 250 mls @ 15 mls/hr IV .[id number] PRN PRN Reason: Saline Flush Sodium Chloride () 250 mls @ 15 mls/hr IV .[id number] PRN PRN Reason: Additional IVPB Infusion Amiodarone HCl 360 mg/ (Dextrose) 200 mls @ 16.667 mls/hr CONT INF .Q12H [facility] Last Admin: 11/05/19 03:35 Dose: 0.5 mg/min, 16.7 mls/hr Documented by: Magnesium Hydroxide (Milk Of Magnesia) 30 ml PO DAILY PRN PRN PRN Reason: Constipation Melatonin (Melatonin) 3 mg PO QHS PRN PRN PRN Reason: INSOMNIA Metoprolol Tartrate (Lopressor (Beta Edna)) 25 mg PO BID [facility] Last Admin: 11/05/19 09:34 Dose: 25 mg Documented by: Morphine Sulfate () 2 mg IV Q3H PRN PRN PRN Reason: Pain Score 6-10/10 Nitroglycerin (Nitrostat) 0.4 mg SUBLINGUAL Q5M PRN PRN Reason: CARDIAC/CHEST PAIN Ondansetron HCl (Zofran) 4 mg IV Q8H PRN PRN PRN Reason: NAUSEA/VOMITING Oxycodone HCl (Oxyir) 5 mg PO Q4H PRN PRN PRN Reason: Pain Score 6-10/10 Pantoprazole Sodium (Protonix) 40 mg PO QHS [facility] Last Admin: 11/04/19 21:46 Dose: 40 mg Documented by: Pregabalin (Lyrica) 150 mg PO BID [facility] Last Admin: 11/05/19 09:45 Dose: 150 mg Documented by: Prochlorperazine Edisylate (Compazine Iv) 5 mg IV Q4H PRN PRN PRN Reason: Breakthrough Nausea/Vomiting Psyllium Hydrophilic Mucilloid (Metamucil) 1 packet PO DAILY PRN PRN PRN Reason: Constipation Senna/Docusate Sodium (Senokot-S, Radha-Colace) 2 tablet PO BID PRN PRN PRN Reason: Constipation Sodium Chloride () 10 - 40 ml IV UD PRN PRN Reason: SALINE FLUSH Last Admin: 11/04/19 04:56 Dose: 40 ml Documented by: Tamsulosin HCl (Flomax) 0.4 mg PO DAILY [facility] Last Admin: 11/05/19 09:35 Dose: 0.4 mg Documented by: Throat Lozenges (Cepacol Sore Throat Lozenge) 1 lozenge MUCOUS MEM Q2H PRN PRN PRN Reason: SORE THROAT STROKE Vital Signs/Narrative: Vital Signs Temp Pulse Resp BP BP Pulse Ox 11/05/19 09:34 79 113/55 L 11/05/19 08:59 100.1 F H 77 16 113/55 L 96 11/05/19 08:00 99.9 F H 73 18 97/72 96 11/05/19 07:47 94 11/05/19 07:24 72 11/05/19 07:00 99.6 F H 71 20 H 109/52 L 94 Medical Necessity - Tobacco Use Smoking Status: Former smoker Tobacco Use: Non-smoker Assessment/Plan All Active Problems Suspected COVID-19 virus infection (Acute) Acute respiratory failure with hypoxia (Acute) Severe sepsis (Acute) Encephalopathy acute (Acute) Atrial fibrillation with RVR (Acute) 74 y/o male with PMHx of Rheumatic arthritis, PAF s/p ablation, on Eliquis (last dose this AM), Hypertension, Morbid Obesity, who was admitted with fever, cough and shortness of breath consistent with severe sepsis and acute hypoxic respiratory insufficiency from flash pulmonary edema/A. fib with RVR 1. Severe sepsis, streptococcus bacteremia, unclear etiology, persistent, possible from left posterior ankle ulcer: Blood culture grew Streptococcus agalactiae, group B. Respiratory panel, Kain antigens and urine culture are negative. COVID-19 PCR negative. Lactic acid was elevated secondary to severe sepsis and hypoxia CXR is negative for infiltrates. IV fluid discontinued. On IV Zosyn. Vancomycin discontinued 2. Acute metabolic encephalopathy secondary severe sepsis, resolved. 3. Acute hypoxic respiratory insufficiency secondary to pulmonary edema secondary to arrhythmia/A. fib with RVR vs possible obesity hypoventilation syndrome/obstructive sleep apnea and morbid obesity. BNpep is 43.3 may be falsely negative and morbid obesity. Patient weaned off oxygen. 4. Paroxysmal atrial fibrillation with RVR: Currently in sinus rhythm. Patient had cardioversion and then ablation about 2 years ago. Patient was also hypotensive in ER. Currently on IV amiodarone drip. On therapeutic Lovenox. 2D echo shows normal LV size with hyperdynamic LV systolic function. No regional wall motion abnormality. Normal RV size and systolic function. Study was technically difficult. Seen by plate painter apprentice. 5. Mildly elevated troponin possible from A. fib with RVR/cardioversion: No acute ST-T changes on EKG: Troponins initially were negative but went up to 0.36 and 0.5 probably elevated from cardioversion.. Patient had cardioversion in ER. On Lovenox SC BID 6. Acute kidney injury on CKD stage III: Patient baseline creatinine runs around 1.1-1.2. Creatinine is trending upwards. Hold nephrotoxic medications. May be component of cardiorenal syndrome. Monitor intake and output. Monitor kidney function and electrolytes. 7. Hypertension, BP is relatively low, On metoprolol 25mg BID, will monitor 8. Left lower extremity edema. Doppler venous bilateral lower extremities negative. 9. Rheumatoid Arthritis, was on Humira, methotrexate, Plaquenil continue to hold meds 10. Chronic normocytic anemia, stable Hb for now 11. BPH, on proscar, flomax 12. GERD, on PPI. 13. DVT Prophylaxis -on therapeutic Lovenox Inpatient E&M: [id number] [facility] Hosp L3
--- NOTE | 2019-11-05 12:55 | PCM.CONS.R ---
Consultation - Renal 11/05/19 PCP/ Referring MD: Requesting physician: [] Primary care physician: Dr. Suraj Johnson MD Reason for Consultation:: bronson - History of Present Illness History of Present Illness: The patient is a 74 year old M [] with a past medical history of atrial fibrillation who presented a chief complaint of shortness of breath and weakness and some low-grade fever and chills and was found to have A. fib RVR. Currently is on amiodarone drip. His blood pressure after admission was in the 80s and also 70s. His creatinine from baseline 1-1.2 increased to 3 range which prompted renal consult today. He denies shortness of breath chest pain palpitations dysuria hematuria nausea vomiting diarrhea abdominal pain today. He has no other complaints. - Allergies Allergies: Allergies hydrocodone bitartrate [From Vicodin] Allergy (Verified 11/03/19 19:33) Other - Current Medications Current Medications: Current Medications Acetaminophen (Tylenol) 650 mg PO Q4H PRN PRN PRN Reason: Pain Score 1-10/Temp > 100.7 F Last Admin: 11/05/19 00:20 Dose: 650 mg Documented by: Al Hydroxide/Mg Hydroxide (Mylanta Ii) 30 ml PO Q6H PRN PRN PRN Reason: Gastric Burning Albuterol Sulfate (Ventolin Aerosols) 2.5 mg INHALATION Q2H PRN PRN PRN Reason: Dyspnea, wheezing Amiodarone HCl (Cordarone) 200 mg PO BID [facility] Dextrose (D50w Syringe) 0 gm IV X1 PRN; Protocol PRN Reason: Hypoglycemia Enoxaparin Sodium (Lovenox) 140 mg SC BID [facility] Last Admin: 11/05/19 09:35 Dose: 140 mg Documented by: Finasteride (Proscar) 5 mg PO DAILY [facility] Last Admin: 11/05/19 09:35 Dose: 5 mg Documented by: [facility] ([facility]) [facility] Last Admin: 11/05/19 08:11 Dose: 1 mg Documented by: Glucagon () 1 mg IM .X1 PRN PRN Reason: Hypoglycemia Guaifenesin (Robitussin) 10 ml PO Q4H PRN PRN PRN Reason: COUGH Hydralazine HCl (Apresoline Iv) 10 mg IV Q4H PRN PRN PRN Reason: SBP > 160 Piperacillin Sod/Tazobactam (Sod 3.375 gm/ Sodium Chloride) 50 mls @ 12.5 mls/hr IV Q8@0200,1000,1800 [facility] Last Admin: 11/05/19 09:45 Dose: 12.5 mls/hr Documented by: Sodium Chloride () 250 mls @ 15 mls/hr IV .[id number] PRN PRN Reason: Saline Flush Sodium Chloride () 250 mls @ 15 mls/hr IV .[id number] PRN PRN Reason: Additional IVPB Infusion Amiodarone HCl 360 mg/ (Dextrose) 200 mls @ 16.667 mls/hr CONT INF .Q12H [facility] Stop: 11/05/19 14:30 Last Admin: 11/05/19 03:35 Dose: 0.5 mg/min, 16.7 mls/hr Documented by: Magnesium Hydroxide (Milk Of Magnesia) 30 ml PO DAILY PRN PRN PRN Reason: Constipation Melatonin (Melatonin) 3 mg PO QHS PRN PRN PRN Reason: INSOMNIA Metoprolol Tartrate (Lopressor (Beta Edna)) 25 mg PO BID [facility] Last Admin: 11/05/19 09:34 Dose: 25 mg Documented by: Morphine Sulfate () 2 mg IV Q3H PRN PRN PRN Reason: Pain Score 6-10/10 Nitroglycerin (Nitrostat) 0.4 mg SUBLINGUAL Q5M PRN PRN Reason: CARDIAC/CHEST PAIN Ondansetron HCl (Zofran) 4 mg IV Q8H PRN PRN PRN Reason: NAUSEA/VOMITING Oxycodone HCl (Oxyir) 5 mg PO Q4H PRN PRN PRN Reason: Pain Score 6-10/10 Pantoprazole Sodium (Protonix) 40 mg PO QHS [facility] Last Admin: 11/04/19 21:46 Dose: 40 mg Documented by: Pregabalin (Lyrica) 150 mg PO BID [facility] Last Admin: 11/05/19 09:45 Dose: 150 mg Documented by: Prochlorperazine Edisylate (Compazine Iv) 5 mg IV Q4H PRN PRN PRN Reason: Breakthrough Nausea/Vomiting Psyllium Hydrophilic Mucilloid (Metamucil) 1 packet PO DAILY PRN PRN PRN Reason: Constipation Senna/Docusate Sodium (Senokot-S, Radha-Colace) 2 tablet PO BID PRN PRN PRN Reason: Constipation Sodium Chloride () 10 - 40 ml IV UD PRN PRN Reason: SALINE FLUSH Last Admin: 11/04/19 04:56 Dose: 40 ml Documented by: Tamsulosin HCl (Flomax) 0.4 mg PO DAILY [facility] Last Admin: 11/05/19 09:35 Dose: 0.4 mg Documented by: Throat Lozenges (Cepacol Sore Throat Lozenge) 1 lozenge MUCOUS MEM Q2H PRN PRN PRN Reason: SORE THROAT - Past Medical History Past Medical History (Chronic Problems): Chronic Problems HTN (hypertension) (Chronic) Morbid obesity (Chronic) Rheumatoid arthritis (Chronic) BPH (benign prostatic hyperplasia) (Chronic) GERD (gastroesophageal reflux disease) (Chronic) - Past Surgical History Surgical History: noncontributory, - - Bilateral total hip replacement, bilateral total knee replacement, cataract surgery bilaterally. - Social History Smoking Status: Former smoker Alcohol: None Drugs: None - Family History Maternal History Items: No pertinent history, - - Patient notes maternal family history of macular degeneration otherwise denies any heart disease, diabetes or cancer. Paternal History Items: - - Patient notes his father passed at age 42, unclear specific reason, no medical history prior to his including heart disease, diabetes or cancer. Review of Systems Eyes: Reports: - - Negative unless noted in the HPI Patient Problems: Active and Suspected Problems Suspected COVID-19 virus infection (Acute) Acute respiratory failure with hypoxia (Acute) Severe sepsis (Acute) Encephalopathy acute (Acute) Atrial fibrillation with RVR (Acute) - Physical Exam Vitals/I&O's: Vital Signs Temp Pulse Resp BP Pulse Ox 100.3 F H 71 14 125/79 H 96 11/05/19 12:00 11/05/19 12:00 11/05/19 12:00 11/05/19 12:00 11/05/19 12:00 Oxygen Flow Rate (L/min) 2 Oxygen Delivery Method Bi-pap Weight: 154 kg Body Mass Index (BMI) 44.8 Intake and Output for Last 24 Hours 11/03/19 11/04/19 11/05/19 23:59 23:59 23:59 Intake Total 1243 / 1483 6331.12 / 6331.12 1203.46 / 1203.46 Output Total 1125 / 1125 350 / 350 Balance 1243 / 1483 5206.12 / 5206.12 853.46 / 853.46 General: Alert, Cooperative HEENT: Atraumatic, Normocephalic Oral: Moist Mucosa Neck: Supple Lungs: Clear to auscultation, Normal air movement Cardiovascular: Regular Rhythm Abdomen: Bowel Sounds Present, Soft, Non Tender, Obese Extremities: No clubbing, - - jyoti wraps Microbiology Past 72 Hours 11/03/19 20:40 Blood Culture (Wb) - Venous Bacteria Detection (PCR) - Final Streptococcus agalactiae (B) 11/03/19 20:40 Blood Culture (Wb) - Venous Blood Culture - Preliminary Streptococcus agalactiae (B) 11/03/19 19:50 Blood Culture (Wb) - Left Hand Blood Culture - Preliminary 11/03/19 21:30 Urine, Clean Catch Urine Culture - Preliminary Culture exhibits no growth. 11/03/19 21:30 Urine Catheter - Catheter Legionella Antigen - Final 11/03/19 21:30 Urine Catheter - Catheter Streptococcus pneumoniae Antigen (M - Final 11/03/19 20:40 Mucosa - Nasopharyngeal Respiratory Panel (PCR) - Final 11/03/19 20:40 Mucosa - Nasopharyngeal Coronavirus COVID-19 PCR - Final Laboratory Results 11/05/19 03:50: WBC 14.7 H, RBC 3.70 L, Hgb 9.1 L, Hct 30.5 L, MCV 82.4, MCH 24.6 L, MCHC 29.8 L, RDW Std Deviation 58.4 H, RDW Coeff of Meliza 19.5 H, Plt Count 123 L, MPV 10.0, Immature Gran % (Auto) 4.200 H, Neut % (Auto) 81.2 H, Lymph % (Auto) 7.4 L, [place] % (Auto) 6.9, Eos % (Auto) 0.1, Baso % (Auto) 0.2, Absolute Neuts (auto) 11.9 H, Absolute Lymphs (auto) 1.09, Nucleated RBC % 0, Differential Comment SCANNED, Atypical Lymphocytes 1+ 11/05/19 03:50: Sodium 137, Potassium 3.7, Chloride 106, Carbon Dioxide 22.0, Anion Gap 9, BUN 41 H, Creatinine 3.00 H, Estim Creat Clear Calc 24.78, Est GFR (MDRD) Af Amer 27 L, Est GFR (MDRD) Non-Af 22 L, BUN/Creatinine Ratio 13.7, Glucose 75, Calcium 7.5 L, Total Bilirubin 1.20 H, AST 934 H, ALT 578 H, Alkaline Phosphatase 29 L, Total Protein 6.5, Albumin 2.7 L, Globulin 3.8, Albumin/Globulin Ratio 0.7 L 11/05/19 09:00: Vancomycin Trough 27.2 H Current Medications Acetaminophen (Tylenol) 650 mg PO Q4H PRN PRN PRN Reason: Pain Score 1-10/Temp > 100.7 F Last Admin: 11/05/19 00:20 Dose: 650 mg Documented by: Al Hydroxide/Mg Hydroxide (Mylanta Ii) 30 ml PO Q6H PRN PRN PRN Reason: Gastric Burning Albuterol Sulfate (Ventolin Aerosols) 2.5 mg INHALATION Q2H PRN PRN PRN Reason: Dyspnea, wheezing Amiodarone HCl (Cordarone) 200 mg PO BID [facility] Dextrose (D50w Syringe) 0 gm IV X1 PRN; Protocol PRN Reason: Hypoglycemia Enoxaparin Sodium (Lovenox) 140 mg SC BID [facility] Last Admin: 11/05/19 09:35 Dose: 140 mg Documented by: Finasteride (Proscar) 5 mg PO DAILY [facility] Last Admin: 11/05/19 09:35 Dose: 5 mg Documented by: Folic Acid ([facility] Acid) [facility] Last Admin: 11/05/19 08:11 Dose: 1 mg Documented by: Glucagon () 1 mg IM .X1 PRN PRN Reason: Hypoglycemia Guaifenesin (Robitussin) 10 ml PO Q4H PRN PRN PRN Reason: COUGH Hydralazine HCl (Apresoline Iv) 10 mg IV Q4H PRN PRN PRN Reason: SBP > 160 Piperacillin Sod/Tazobactam (Sod 3.375 gm/ Sodium Chloride) 50 mls @ 12.5 mls/hr IV Q8@0200,1000,1800 [facility] Last Admin: 11/05/19 09:45 Dose: 12.5 mls/hr Documented by: Sodium Chloride () 250 mls @ 15 mls/hr IV .[id number] PRN PRN Reason: Saline Flush Sodium Chloride () 250 mls @ 15 mls/hr IV .[id number] PRN PRN Reason: Additional IVPB Infusion Amiodarone HCl 360 mg/ (Dextrose) 200 mls @ 16.667 mls/hr CONT INF .Q12H [facility] Stop: 11/05/19 14:30 Last Admin: 11/05/19 03:35 Dose: 0.5 mg/min, 16.7 mls/hr Documented by: Magnesium Hydroxide (Milk Of Magnesia) 30 ml PO DAILY PRN PRN PRN Reason: Constipation Melatonin (Melatonin) 3 mg PO QHS PRN PRN PRN Reason: INSOMNIA Metoprolol Tartrate (Lopressor (Beta Edna)) 25 mg PO BID [facility] Last Admin: 11/05/19 09:34 Dose: 25 mg Documented by: Morphine Sulfate () 2 mg IV Q3H PRN PRN PRN Reason: Pain Score 6-10/10 Nitroglycerin (Nitrostat) 0.4 mg SUBLINGUAL Q5M PRN PRN Reason: CARDIAC/CHEST PAIN Ondansetron HCl (Zofran) 4 mg IV Q8H PRN PRN PRN Reason: NAUSEA/VOMITING Oxycodone HCl (Oxyir) 5 mg PO Q4H PRN PRN PRN Reason: Pain Score 6-10/10 Pantoprazole Sodium (Protonix) 40 mg PO QHS [facility] Last Admin: 11/04/19 21:46 Dose: 40 mg Documented by: Pregabalin (Lyrica) 150 mg PO BID [facility] Last Admin: 11/05/19 09:45 Dose: 150 mg Documented by: Prochlorperazine Edisylate (Compazine Iv) 5 mg IV Q4H PRN PRN PRN Reason: Breakthrough Nausea/Vomiting Psyllium Hydrophilic Mucilloid (Metamucil) 1 packet PO DAILY PRN PRN PRN Reason: Constipation Senna/Docusate Sodium (Senokot-S, Radha-Colace) 2 tablet PO BID PRN PRN PRN Reason: Constipation Sodium Chloride () 10 - 40 ml IV UD PRN PRN Reason: SALINE FLUSH Last Admin: 11/04/19 04:56 Dose: 40 ml Documented by: Tamsulosin HCl (Flomax) 0.4 mg PO DAILY [facility] Last Admin: 11/05/19 09:35 Dose: 0.4 mg Documented by: Throat Lozenges (Cepacol Sore Throat Lozenge) 1 lozenge MUCOUS MEM Q2H PRN PRN PRN Reason: SORE THROAT Assessment/Plan All Active Problems Suspected COVID-19 virus infection (Acute) Acute respiratory failure with hypoxia (Acute) Severe sepsis (Acute) Encephalopathy acute (Acute) Atrial fibrillation with RVR (Acute) BRONSON prerenal/ATN with hypotension Proteinuria Afib Strep bacteremia Scr 3 now bp better continue to monitor check bladder scan renal US repeat UA initial UA was bland avoid nephrotoxins KEep map>65 Above assessment and plan was discussed at length with the patient who voiced understanding and agrees to proceed with the plan as outlined above. He was given the opportunity to ask questions and stated that those were answered to his satisfaction. Much for allowing me to participate in the care of this patient. Please do not hesitate to ask if you have any questions or concerns.
--- NOTE | 2019-11-05 13:07 | CASEMGMT ---
RN CM Assessment Note Presentation: sepsis, bacteremia, hypoxia, COVID testing Neg Intro role of CM to patient in room. Pt just completed PT, now sitting in chair- no PT recommended currently @ home. Pt states he is independent, no care needs. PCP: Dr. Suraj Johnson Specialists: Marco Garcia, nephrology Preferred Pharmacy: [facility] Insurance: [facility] Prescription Benefit: yes LNOK : , Carina Alegre Living Arrangements: Lives with . States no care needs. Transportation: Drives DME: has walker, cane, shower chair- not using any currently. HHC: none Patient DC goals: Home DC PLAN: Home. RN CM advised to contact cm for any concerns/needs that may arise.
--- NOTE | 2019-11-05 13:14 | US_ITS ---
STUDY: RENAL ULTRASOUND - COMPLETE REASON FOR EXAM: Male, 74 years old. ARF TECHNIQUE: Ultrasound evaluation of the kidneys was performed with real-time and static morales-scale imaging. Imaging is degraded by patient body habitus and condition. COMPARISON: None. FINDINGS: RIGHT KIDNEY: Normal location of the right kidney, which is normal in size. The right kidney measures 12.6 x 6.5 x 6.9 cm. There is a normal cortex of the right kidney. The renal cortex measures 1.7 cm. Partially defined 1.9 x 1.8 x 1.9 cm hypoechoic structure in the anterior upper to mid pole may be a cortical cyst. There are no right renal calculi. There is no right hydronephrosis. DISTAL RIGHT URETER: There is non-visualization of the distal right ureter. There is no demonstrated right ureterovesical junction calculus. There is no demonstrated right ureteral jet. LEFT KIDNEY: Normal location of the left kidney, with mild renal hypertrophy. The left kidney measures 14.0 x 7.0 x 7.4 cm. There is a normal cortex of the left kidney. The renal cortex measures 2.2 cm. There is no left renal mass or cyst. 5.4 mm hyperechogenicity that may be a nonocclusive stone is seen in the lower pole. There is no left hydronephrosis. DISTAL LEFT URETER: There is non-visualization of the distal left ureter. There is no demonstrated left ureterovesical junction calculus. There is no demonstrated left ureteral jet. BLADDER: The urinary bladder is collapsed around a Peter catheter, precluding evaluation. US/Kidney and Bladder IMPRESSION: 1. Urinary bladder collapsed around Peter catheter. No hydronephrosis. 2. Possible 5.4 mm nonocclusive stone in the lower pole of left kidney. 3. 1.9 cm possible cortical cyst in the anterior upper to mid pole of the right kidney. Electronically Signed: Jim West MD at 17:16 EDT , Service support ,
[2019-11-05] MEDS: Amiodarone 200 MG Tablet PO ×2 (13:45→21:57)
[2019-11-05 13:53] LABS: Color, Urine Yellow (Yellow); Glucose, Dipstick Normal (Normal); Ketone-Dipstick Negative (Negative); Leukocyte Esterase-Dipstick 25 /ul (Negative); Nitrite-Dipstick Negative (Negative); Occult Blood-Urine 250 /ul (Negative); Protein-Dipstick 30 mg/dl (Negative); Specific Gravity, Urine 1.015 (1.002-1.030); Urine Bilirubin Dipstick Negative (Negative); Urine Clarity Sl. Cloudy (Clear); Urine Urobilinogen 1 mg/dl (Normal)
--- NOTE | 2019-11-05 15:10 | CON.PCM_ITS ---
Problem List (1) Severe sepsis Status: Acute Reason for Consult: bacteremia Consulted by: Dr. Fabian History of Present Illness: The patient is a 74 year old M with RA on humira and methotrexate, presented 11/02 with sudden onset chills, not feeling well, nausea/vomiting. Had some dry cough for about a month prior to this, no dyspnea, no sputum. 2 days prior to presenting, scratched by his dog on both arms and amparo blood. No redness or fito h reported. No joint pain, no abd pain, no dysuria, no urine changes. Has h/o kidney stones and gallstones. Came to ED, found to have severe sepsis, covid was neg, admitted on vanc/zosyn. Vanc stopped, feeling better, no further fever, but worsening BRONSON. Full ROS performed and neg except as noted above. - Medical History Past Medical History (Chronic Problems): Chronic Problems HTN (hypertension) (Chronic) Morbid obesity (Chronic) Rheumatoid arthritis (Chronic) BPH (benign prostatic hyperplasia) (Chronic) GERD (gastroesophageal reflux disease) (Chronic) Allergies/Adverse Reactions: Allergies hydrocodone bitartrate [From Vicodin] Allergy (Verified 11/03/19 19:33) Other Home Medications: Ambulatory Orders Medication Instructions Recorded Finasteride [Propecia] 1 mg PO DAILY 02/22/14 Folic Acid 1 mg PO DAILY 02/22/14 Hydrochlorothiazide 25 mg PO DAILY 02/22/14 Lutein 20 mg PO DAILY 02/22/14 Methotrexate 15 mg PO Q7D 02/22/14 Multivit-Min/FA/Lycopene/Lut 1 each PO DAILY 02/22/14 [Centrum Silver Tablet] [place]-3 Fatty Acids/Fish Oil [Fish 1 each PO DAILY 02/22/14 Oil 1,000 mg Softgel] Omeprazole [Prilosec] 40 mg PO QHS 02/22/14 Adalimumab [Humira] 40 mg SQ QWEEK 03/01/14 Metoprolol Succinate 12.5 mg PO DAILY 03/01/14 Oxycodone HCl/Acetaminophen 1 tablet PO Q4H PRN PRN #20 tablet 03/01/14 [Percocet 5/325] Apixaban [Eliquis] 5 mg PO BID 11/03/19 Fenofibrate 160 mg PO DAILY 11/03/19 Glipizide 5 mg PO BID 11/03/19 Lisinopril [Zestril] 40 mg PO DAILY 11/03/19 Pregabalin [Lyrica] 150 mg PO BID 11/03/19 Tamsulosin HCl 0.4 mg PO DAILY 11/03/19 - Social History SMOKING STATUS:: Former smoker Vital Signs Temp Pulse Resp BP Pulse Ox 100.3 F H 73 20 H 121/60 H 95 11/05/19 14:00 11/05/19 14:00 11/05/19 14:00 11/05/19 14:00 11/05/19 14:00 Oxygen Flow Rate (L/min) 2 Oxygen Delivery Method Room Air Weight: 154 kg Body Mass Index (BMI) 44.8 Microbiology Past 72 Hours 11/03/19 20:40 Bacteria Detection (PCR) - Final Blood Culture (Wb) - Venous Streptococcus agalactiae (B) Blood Culture - Preliminary Streptococcus agalactiae (B) 11/03/19 19:50 Blood Culture - Preliminary Blood Culture (Wb) - Left Hand 11/03/19 21:30 Urine Culture - Preliminary Urine, Clean Catch Culture exhibits no growth. 11/03/19 21:30 Legionella Antigen - Final Urine Catheter - Catheter 11/03/19 21:30 Streptococcus pneumoniae Antigen (M - Final Urine Catheter - Catheter 11/03/19 20:40 Respiratory Panel (PCR) - Final Mucosa - Nasopharyngeal 11/03/19 20:40 Coronavirus COVID-19 PCR - Final Mucosa - Nasopharyngeal Laboratory Tests Past 24 Hrs 11/05/19 11/05/19 11/05/19 03:50 03:50 09:00 WBC 14.7 H RBC 3.70 L Hgb 9.1 L Hct 30.5 L MCV 82.4 MCH 24.6 L MCHC 29.8 L RDW Std Deviation 58.4 H RDW Coeff of Meliza 19.5 H Plt Count 123 L MPV 10.0 Immature Gran % (Auto) 4.200 H Neut % (Auto) 81.2 H Lymph % (Auto) 7.4 L [place] % (Auto) 6.9 Eos % (Auto) 0.1 Baso % (Auto) 0.2 Absolute Neuts (auto) 11.9 H Absolute Lymphs (auto) 1.09 Nucleated RBC % 0 Differential Comment SCANNED Atypical Lymphocytes 1+ Sodium 137 Potassium 3.7 Chloride 106 Carbon Dioxide 22.0 Anion Gap 9 BUN 41 H Creatinine 3.00 H Estim Creat Clear Calc 24.78 Est GFR (MDRD) Af Amer 27 L Est GFR (MDRD) Non-Af 22 L BUN/Creatinine Ratio 13.7 Glucose 75 Calcium 7.5 L Total Bilirubin 1.20 H AST 934 H ALT 578 H Alkaline Phosphatase 29 L Total Protein 6.5 Albumin 2.7 L Globulin 3.8 Albumin/Globulin Ratio 0.7 L Urine Color Urine Clarity Urine pH Ur Specific [place] Urine Protein Urine Glucose (UA) Urine Ketones Urine Occult Blood Urine Nitrite Urine Bilirubin Urine Urobilinogen Ur Leukocyte Esterase Vancomycin Trough 27.2 H 11/05/19 13:30 WBC RBC Hgb Hct MCV MCH MCHC RDW Std Deviation RDW Coeff of Meliza Plt Count MPV Immature Gran % (Auto) Neut % (Auto) Lymph % (Auto) [place] % (Auto) Eos % (Auto) Baso % (Auto) Absolute Neuts (auto) Absolute Lymphs (auto) Nucleated RBC % Differential Comment Atypical Lymphocytes Sodium Potassium Chloride Carbon Dioxide Anion Gap BUN Creatinine Estim Creat Clear Calc Est GFR (MDRD) Af Amer Est GFR (MDRD) Non-Af BUN/Creatinine Ratio Glucose Calcium Total Bilirubin AST ALT Alkaline Phosphatase Total Protein Albumin Globulin Albumin/Globulin Ratio Urine Color Yellow Urine Clarity Sl. Cloudy Urine pH 5.0 Ur Specific [place] 1.015 Urine Protein 30 H Urine Glucose (UA) Normal Urine Ketones Negative Urine Occult Blood 250 H Urine Nitrite Negative Urine Bilirubin Negative Urine Urobilinogen 1 H Ur Leukocyte Esterase 25 H Vancomycin Trough - Other Studies Radiology: [] reviewed Other Studies: [] Route of nutrition/ use of supplements: [] Nutritional Intake: [] IV Site: [] Peter Catheter: [] - Physical Exam General: Alert, Oriented x3, Cooperative, No apparent distress HEENT: Atraumatic, PERRLA, EOMI Neck: Supple, No Nodes Lungs: Clear to auscultation, Normal air movement Cardiovascular: Regular rate, Regular Rhythm, No murmurs Abdomen: Soft, Non Tender, Non-Distended Extremities: Edema Skin: No rashes Musculoskeletal: No Tenderness to Palpation of Joints or Extremities Neurological: Cranial nerves II-XII grossly intact - Assessment/Plan Antibiotics: [] Assessment/Plan: [] Active and Suspected Problems Suspected COVID-19 virus infection (Acute) Acute respiratory failure with hypoxia (Acute) Severe sepsis (Acute) Encephalopathy acute (Acute) Atrial fibrillation with RVR (Acute) severe sepsis with GBS bacteremia complicated by BRONSON - possible source is dog scratches. COVID neg, other cxs neg. Worsening BRONSON. Will stop zosyn. Change to ceftriaxone which will be easier on his kidneys. Plan is for po abx at discharge. No veg seen on TTE. Will follow, thank you.
--- NOTE | 2019-11-05 15:31 | PN.CARD_ITS ---
Subjectve: Patient seen and evaluated. Is back in sinus rhythm and doing well. Objective: Vital Signs Temp Pulse Resp BP Pulse Ox 100.3 F H 74 20 H 121/60 H 95 11/05/19 14:00 11/05/19 15:11 11/05/19 14:00 11/05/19 14:00 11/05/19 15:00 Oxygen Flow Rate (L/min) 2 Oxygen Delivery Method Room Air Weight: 339 lb 8.19 oz Body Mass Index (BMI) 44.8 Intake and Output for Last 24 Hours 11/03/19 11/04/19 11/05/19 23:59 23:59 23:59 Intake Total 1243 / 1483 6331.12 / 6331.12 1603.46 / 1603.46 Output Total 1125 / 1125 950 / 950 Balance 1243 / 1483 5206.12 / 5206.12 653.46 / 653.46 General: Awake, Alert, Oriented x 3 HEENT: PERRL, EOMI, Sclera Non Icteric Neck: Supple, Good ROM, No Lymph Node Enlargement Lungs: Clear to auscultation Cardiovascular: Regular Rhythm, Normal S1, Normal S2, No Murmurs, No Rubs, No Gallops Vascular: No Carotid Bruits, Normal Femoral Pulses, Normal Radial Pulses, Normal Dorsalis Pedal Pulse, Normal Posterior Tibial Pulses Abdomen: Bowel Sounds Present, Soft, Non Tender, No HSM, No Organomegaly Extremities: No Cyanosis, No Clubbing, No edema Musculoskeletal: No Erythema Skin: No Rashes Lymphatic: No Lymph Node Enlargement Neurological: No Focal Motor or Sensory Deficit Psych/Mental Status: Appropriate 11/05/19 03:50: WBC 14.7 H, RBC 3.70 L, Hgb 9.1 L, Hct 30.5 L, MCV 82.4, MCH 24.6 L, MCHC 29.8 L, Plt Count 123 L, MPV 10.0, Immature Gran % (Auto) 4.200 H, Neut % (Auto) 81.2 H, Lymph % (Auto) 7.4 L, [place] % (Auto) 6.9, Eos % (Auto) 0.1, Baso % (Auto) 0.2, Absolute Neuts (auto) 11.9 H, Nucleated RBC % 0 11/05/19 03:50: Sodium 137, Potassium 3.7, Chloride 106, Carbon Dioxide 22.0, Anion Gap 9, BUN 41 H, Creatinine 3.00 H, Est GFR (MDRD) Af Amer 27 L, Est GFR (MDRD) Non-Af 22 L, BUN/Creatinine Ratio 13.7, Glucose 75, Calcium 7.5 L, Total Bilirubin 1.20 H 11/05/19 13:30: Urine Color Yellow, Urine Clarity Sl. Cloudy, Urine pH 5.0, Ur Specific [place] 1.015, Urine Protein 30 H, Urine Glucose (UA) Normal, Urine Ketones Negative, Urine Occult Blood 250 H, Urine Nitrite Negative, Urine Bilirubin Negative, Urine Urobilinogen 1 H, Ur Leukocyte Esterase 25 H Rhythm: EKG: ECHO: Stress Test: Cardiac Cath: PCI: CT Surgery: Holter monitor: EPS: PPM: CXR: Chest CT Scan: Medical Necessity - Tobacco Use Smoking Status: Former smoker Tobacco Use: Non-smoker Assessment/Plan 1. Paroxysmal atrial fibrillation * Patient has a known history of paroxysmal atrial fibrillation. He has undergone at least 3 attempts at ablation which have been unsuccessful. He appears to have been back in atrial fibrillation and right now has converted back to sinus rhythm. He is being started on amiodarone which will be continued. * He will also continue his beta-ariel as well as his anticoagulation. 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 * 2. Hypertension * His blood pressure is under good control on the current regimen. * He does have some renal dysfunction but we will continue monitoring this closely. * His Ef is normal and hyperdynamic. Thank you for allowing me to participate in the care of your patient. Please don't hesitate to call if any issues arise.
[2019-11-05 18:11] LABS: Bedside Glucose 85 mg/dL (70-110)
[2019-11-05] MEDS: APIXABAN 2.5 MG TABLET PO (21:58)
[2019-11-05] MEDS: MELATONIN 3 MG TABLET PO (21:59)
[2019-11-05] MEDS: Pantoprazole Sodium 40 MG Tablet PO (21:59)
[2019-11-06] VITALS (11 sets, daily range): BP systolic 107–158; BP diastolic 54–65; PULSE 47–77; RESP 12–19; TEMP 36.4–36.7; O2SAT 95–97
[2019-11-06 06:58] LABS: Hematocrit 28.1 % (40-54); Hemoglobin 8.6 g/dL (13.0-16.5); Mean Corp Hgb Conc 30.6 g/dL (32-36); Mean Corpuscular Hgb 24.6 pg (27.0-32.0); Mean Corpuscular Volume 80.5 fL (80-94); Mean Platelet Vol. 10.7 fl (6.2-12.0); Platelet Count 126 K/mm3 (150-450); RBC Distribution Width CV 19.5 % (11.6-14.6); RBC Distribution Width SD 56.8 fl (35.1-43.9); Red Blood Count 3.49 M/mm3 (4.6-6.2); White Blood Count 10.2 K/mm3 (4.4-11.0)
[2019-11-06 07:24] LABS: Magnesium 2.6 mg/dL (1.6-2.6)
[2019-11-06 07:25] LABS: ALB/GLOB Ratio 0.6 RATIO (0.9-2.4); AST(SGOT) 406 U/L (15-37); Alanine Aminotransfer ALT/SGPT 509 U/L (16-61); Albumin, Serum 2.5 g/dL (3.2-5.0); Alkaline Phosphatase 43 U/L (45-117); Anion Gap 6 (5-15); BUN 55 mg/dL (7-18); BUN/Creat Ratio 20.5 RATIO (10-20); Calcium,Total 8.1 mg/dL (8.5-10.1); Chloride 108 mmol/L (98-107); Creatinine, Serum 2.68 mg/dL (0.70-1.30); EST Glomerular Filtration Rate 25 mL/min (>60); Est Glom Filt Rate - Afr Amer 30 mL/min (>60); Estimated Creatinine Clearance 27.74 ml/min; Globulin 4.1 g/dL (2.2-4.2); Glucose 104 mg/dL (74-106); Potassium 3.8 mmol/L (3.5-5.1); Protein, Total 6.6 g/dL (6.4-8.2); Sodium Level 137 mmol/L (136-145)
--- NOTE | 2019-11-06 08:25 | PN.CARD_ITS ---
Subjectve: Patient seen and evaluated. Appears to be doing better this morning. Still on BiPAP. Objective: Vital Signs Temp Pulse Resp BP Pulse Ox 97.6 F L 62 17 107/54 L 97 11/06/19 04:09 11/06/19 07:00 11/06/19 04:09 11/06/19 04:09 11/06/19 04:09 Oxygen Flow Rate (L/min) 2 Oxygen Delivery Method Bi-pap Weight: 339 lb 8.19 oz Body Mass Index (BMI) 44.8 Intake and Output for Last 24 Hours 11/04/19 11/05/19 11/06/19 23:59 23:59 23:59 Intake Total 6331.12 / 6331.12 2676.90 / 2676.90 75 / 75 Output Total 1125 / 1125 1950 / 1950 500 / 500 Balance 5206.12 / 5206.12 726.90 / 726.90 -425 / -425 General: Awake, Alert, Oriented x 3 HEENT: PERRL, EOMI, Sclera Non Icteric Neck: Supple, Good ROM, No Lymph Node Enlargement Lungs: Clear to auscultation Cardiovascular: Regular Rhythm, Normal S1, Normal S2, No Murmurs, No Rubs, No Gallops Vascular: No Carotid Bruits, Normal Femoral Pulses, Normal Radial Pulses, Normal Dorsalis Pedal Pulse, Normal Posterior Tibial Pulses Abdomen: Bowel Sounds Present, Soft, Non Tender, No HSM, No Organomegaly Extremities: No Cyanosis, No Clubbing, No edema Musculoskeletal: No Erythema Skin: No Rashes Neurological: No Focal Motor or Sensory Deficit Psych/Mental Status: Appropriate 11/05/19 13:30: Urine Color Yellow, Urine Clarity Sl. Cloudy, Urine pH 5.0, Ur Specific [place] 1.015, Urine Protein 30 H, Urine Glucose (UA) Normal, Urine Ketones Negative, Urine Occult Blood 250 H, Urine Nitrite Negative, Urine Bilirubin Negative, Urine Urobilinogen 1 H, Ur Leukocyte Esterase 25 H 11/06/19 06:36: WBC 10.2, RBC 3.49 L, Hgb 8.6 L, Hct 28.1 L, MCV 80.5, MCH 24.6 L, MCHC 30.6 L, Plt Count 126 L, MPV 10.7 11/06/19 06:36: Sodium 137, Potassium 3.8, Chloride 108 H, Carbon Dioxide 23.0, Anion Gap 6, BUN 55 H, Creatinine 2.68 H, Est GFR (MDRD) Af Amer 30 L, Est GFR (MDRD) Non-Af 25 L, BUN/Creatinine Ratio 20.5 H, Glucose 104, Calcium 8.1 L, Total Bilirubin 0.60 11/06/19 06:36: Magnesium 2.6 Rhythm: EKG: ECHO: Stress Test: Cardiac Cath: PCI: CT Surgery: Holter monitor: EPS: PPM: CXR: Chest CT Scan: Medical Necessity - Tobacco Use Smoking Status: Former smoker Tobacco Use: Non-smoker Assessment/Plan 1. Paroxysmal atrial fibrillation * Patient has a known history of paroxysmal atrial fibrillation. He has undergone at least 3 attempts at ablation which have been unsuccessful. He appears to have been back in atrial fibrillation and right now has converted back to sinus rhythm. He is being started on amiodarone which will be continued. * He will also continue his beta-ariel as well as his anticoagulation. 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 * At this point he can be discharged for outpatient follow-up 2. Hypertension * His blood pressure is under good control on the current regimen. * He does have some renal dysfunction but we will continue monitoring this closely. * His Ef is normal and hyperdynamic. Thank you for allowing me to participate in the care of your patient. Please don't hesitate to call if any issues arise.
[2019-11-06] MEDS: Metoprolol Tartrate 25 MG Tablet PO (09:42)
[2019-11-06] MEDS: Finasteride 5 MG Tablet PO (09:42)
[2019-11-06] MEDS: Tamsulosin HCl 0.4 MG Capsule PO (09:42)
[2019-11-06] MEDS: Amiodarone 200 MG Tablet PO (09:43)
[2019-11-06] MEDS: Folic Acid 1 MG Tablet PO (09:43)
[2019-11-06] MEDS: APIXABAN 2.5 MG TABLET PO (09:43)
[2019-11-06] MEDS: Pregabalin 75 MG Capsule 150 MG PO (09:43)
--- NOTE | 2019-11-06 09:57 | PCM.DC ---
- Discharge Diagnoses Current Active Problems: Current Active and Chronic Problems Suspected COVID-19 virus infection (Acute) Acute respiratory failure with hypoxia (Acute) Severe sepsis (Acute) Encephalopathy acute (Acute) Atrial fibrillation with RVR (Acute) HTN (hypertension) (Chronic) Morbid obesity (Chronic) Rheumatoid arthritis (Chronic) BPH (benign prostatic hyperplasia) (Chronic) GERD (gastroesophageal reflux disease) (Chronic) You will use the following diet at home:: Cardiac Discharge Activity: May Not Drive Call your doctor if you observe: Fever of 101 or Higher, Numbness or Tingling, Inability to urinate, Inability to have a bowel movement, Shortness of breath, Dizziness, Fainting spells, Swelling in the ankles, Chest pain, Prolonged hiccoughing, Increased palpitations (irregular heartbeat), Calf discomfort, Uncontrolled pain Additional Instructions: HCTZ is discontinued but can resume once kidney comes to baseline after seeing FINANCIAL SERVICES CONSULTANT, probably with lower dose Allergies/Adverse Reactions: Allergies hydrocodone bitartrate [From Vicodin] Allergy (Verified 11/03/19 19:33) Other Medications to take at Discharge RX: Finasteride [Propecia] 1 mg PO DAILY 02/22/14 RX: Folic Acid 1 mg PO DAILY 02/22/14 RX: Lutein 20 mg PO DAILY 02/22/14 RX: Multivit-Min/FA/Lycopene/Lut [Centrum Silver Tablet] 1 each PO DAILY 02/22/14 RX: [place]-3 Fatty Acids/Fish Oil [Fish Oil 1,000 mg Softgel] 1 each PO DAILY 02/22/14 RX: Omeprazole [Prilosec] 40 mg PO QHS 02/22/14 RX: Adalimumab [Humira] 40 mg SQ QWEEK 03/01/14 RX: Oxycodone HCl/Acetaminophen [Percocet 5-325] 1 tablet PO Q4H PRN PRN #20 tablet 03/01/14 RX: Pregabalin [Lyrica] 150 mg PO BID 11/03/19 RX: Tamsulosin HCl 0.4 mg PO DAILY 11/03/19 RX: Amiodarone HCl [Cordarone] 200 mg PO BID #60 tab 11/06/19 RX: Amoxicillin 500 mg PO BID #10 tab 11/06/19 RX: Apixaban [Eliquis] 2.5 mg PO BID #0 11/06/19 RX: Fenofibrate 40 mg PO DAILY #0 11/06/19 RX: Glipizide 5 mg PO BID #0 11/06/19 RX: Lisinopril [Zestril] 20 mg PO DAILY #0 11/06/19 RX: Methotrexate 7.5 mg PO Q7D #0 11/06/19 RX: Metoprolol Tartrate [Lopressor (beta ariel)] 25 mg PO BID #60 tab 11/06/19 The following prescriptions were given: RX: Amoxicillin 500 mg PO BID #10 tab Transmission Status: Pending to [address] RX: Amiodarone HCl [Cordarone] 200 mg PO BID #60 tab Transmission Status: Pending to [address] RX: Metoprolol Tartrate [Lopressor (beta ariel)] 25 mg PO BID #60 tab Transmission Status: Received by [address] Primary Care Physician: Suraj Johnson MD [Primary Care Provider] - Please follow up with your Primary Care Physician in: in 2 weeks Test Results: Test results from this visit will be discussed in further detail at your follow-up appointment, if applicable. Please Follow Up With: Damon Welsh MD When: in 2 weeks with CHRIST Horn Please Follow Up With: Vinicius Franco MD When: IN 2 WEEKS Please Follow Up With: Saleem Lara MD When: in 2-3 weeks Please Follow Up With: Nuno Morris MD When: in 4 weeks wiht kidey stone and BPH
--- NOTE | 2019-11-06 10:01 | DS.PCM_ITS ---
Discharge Date and Diagnosis - Problem List Patient Problems: Active and Suspected Problems (Last Updated 11/06/19 @ 11:39 by Kell Galindo) Elevated troponin (Acute 11/04/19) Elevated LFTs (Acute 11/04/19) Date of Admission: 11/03/19 Date of Discharge: 11/06/19 - Primary Discharge Diagnosis Active and Suspected Problems Suspected COVID-19 virus infection (Acute) Acute respiratory failure with hypoxia (Acute) Severe sepsis (Acute) Encephalopathy acute (Acute) Atrial fibrillation with RVR (Acute) - Secondary Discharge Diagnosis Chronic Problems HTN (hypertension) (Chronic) Morbid obesity (Chronic) Rheumatoid arthritis (Chronic) BPH (benign prostatic hyperplasia) (Chronic) GERD (gastroesophageal reflux disease) (Chronic) Hospital Course and Treatment Summary of Care Provided: The patient is a 74 y/o male with PMHx of Rheumatic arthritis, PAF s/p ablation, on Eliquis (last dose this AM), Hypertension, Morbid Obesity, who was admitted with fever, cough and shortness of breath consistent with severe sepsis and acute hypoxic respiratory insufficiency from flash pulmonary edema/A. fib with RVR 1. Severe sepsis, streptococcus bacteremia, unclear etiology, persistent, possible from left posterior ankle ulcer: Blood culture grew Streptococcus agalactiae, group B. Respiratory panel, Kain antigens and urine culture are negative. COVID-19 PCR negative. Lactic acid was elevated secondary to severe sepsis and hypoxia CXR is negative for infiltrates. Patient was on vancomycin and Zosyn which was narrowed down to ceftriaxone. Patient is discharged on 5 more days of amoxicillin for group B Streptococcus. Discussed with ID. 2. Acute metabolic encephalopathy secondary severe sepsis, resolved. 3. Acute hypoxic respiratory insufficiency secondary to pulmonary edema secondary to arrhythmia/A. fib with RVR vs possible obesity hypoventilation syndrome/obstructive sleep apnea and morbid obesity. BNpep is 43.3 may be falsely negative and morbid obesity. Patient weaned off oxygen. 4. Paroxysmal atrial fibrillation with RVR: Currently in sinus rhythm. Patient had cardioversion and then ablation about 2 years ago. Patient was also hypotensive in ER. Currently on IV amiodarone drip. On therapeutic Lovenox. 2D echo shows normal LV size with hyperdynamic LV systolic function. No regional wall motion abnormality. Normal RV size and systolic function. Study was technically difficult. Seen by boiler coverer helper. Patient discharged on amiodarone 200 mg daily, metoprolol and Eliquis. 5. Mildly elevated troponin possible from A. fib with RVR/cardioversion: No acute ST-T changes on EKG: Troponins initially were negative but went up to 0.36 and 0.5 probably elevated from cardioversion.. Patient had cardioversion in ER. 6. Acute kidney injury on CKD stage III: Patient baseline creatinine runs around 1.1-1.2. Creatinine is trending upwards. Hold nephrotoxic medications. May be component of cardiorenal syndrome. Monitor intake and output. Monitor kidney function and electrolytes. 11/05: Patient creatinine improving. HCTZ discontinued. Hold nephrotoxic medications including lisinopril, methotrexate for 7 days. Follow-up with nephrology to further monitor kidney function as an outpatient. 7. Hypertension, BP is relatively low, On metoprolol 25mg BID, will monitor 8. Left lower extremity edema. Doppler venous bilateral lower extremities negative. 9. Rheumatoid Arthritis, was on Humira, methotrexate, Plaquenil continue to hold meds 10. Chronic normocytic anemia, stable Hb for now 11. BPH, on proscar, flomax 12. GERD, on PPI. 13. Elevated transaminases, most likely drug-induced liver injury: Serial liver test shows improvement in ALT and AST and total bilirubin. LDH normal. Alkaline phosphatase normal. Hold hepatotoxic medications including methotrexate, adalimumab. Dose of amiodarone decreased 200 mg daily. Discussed with patient. Follow-up CBC and CMP in 1 week with PCP/rn patient services. Discharge medication reconciliation done. Discharge follow-up instructions completed. Discharge process discussed with the patient and all questions were answered to patient's satisfaction. Total time spent, exact 35 minutes on discharge meds reconciliation, examination, coordination of care with nurses and ancillary staff, review of imaging and blood test and discussion with the patient on follow-up instructions Patient Problems: Active and Suspected Problems (Last Updated 11/06/19 @ 11:39 by Kell Galindo) Elevated troponin (Acute 11/04/19) Elevated LFTs (Acute 11/04/19) Objective: Seen and examined. Blood pressure is controlled although mildly elevated. Heart rate controlled. Heart rate fluctuates between sinus A. fib but currently in sinus rhythm. On physical exam General: Alert, Oriented x3, Cooperative HEENT: Atraumatic, PERRLA, EOMI, Normocephalic Neck: Supple, No JVD, Negative Carotid Bruits Lungs: Clear to auscultation, No rhonchi, No wheeze, No rales, Air entry diminished bilaterally. Cardiovascular: Regular rate, Normal S1, Normal S2, No murmurs, sinus rhythm with PVCs and occasional 3 beats of NSVT. Abdomen: Bowel Sounds Present, Soft, Non Tender Extremities: Capillary Refill Less than 3 Seconds, mild edema; overall improved Skin: No rashes, No breakdown Musculoskeletal: No Tenderness to Palpation of Joints or Extremities, Arthritic Changes Neurological: Cranial nerves II-XII grossly intact, Deep Tendon Reflexes 2+/4 and Symmetrical, Neuro grossly intact Psych/Mental Status: Normal Affect, Appropriate - Physical Exam Vitals/I&O's: Vital Signs Temp Pulse Resp BP Pulse Ox 98.1 F 73 18 158/65 H 96 11/06/19 09:35 11/06/19 09:42 11/06/19 09:35 11/06/19 09:42 11/06/19 09:35 Oxygen Flow Rate (L/min) 2 Oxygen Delivery Method Room Air Weight: 339 lb 8.19 oz Body Mass Index (BMI) 44.8 Intake and Output for Last 24 Hours 11/04/19 11/05/19 11/06/19 23:59 23:59 23:59 Intake Total 6331.12 / 6331.12 2676.90 / 2676.90 75 / 75 Output Total 1125 / 1125 1950 / 1950 500 / 500 Balance 5206.12 / 5206.12 726.90 / 726.90 -425 / -425 Microbiology Past 72 Hours 11/03/19 19:50 Blood Culture (Wb) - Left Hand Blood Culture - Final Streptococcus agalactiae (B) 11/03/19 20:40 Blood Culture (Wb) - Venous Bacteria Detection (PCR) - Final Streptococcus agalactiae (B) 11/03/19 20:40 Blood Culture (Wb) - Venous Blood Culture - Final Streptococcus agalactiae (B) 11/03/19 21:30 Urine, Clean Catch Urine Culture - Preliminary Culture exhibits no growth. 11/03/19 21:30 Urine Catheter - Catheter Legionella Antigen - Final 11/03/19 21:30 Urine Catheter - Catheter Streptococcus pneumoniae Antigen (M - Final 11/03/19 20:40 Mucosa - Nasopharyngeal Respiratory Panel (PCR) - Final 11/03/19 20:40 Mucosa - Nasopharyngeal Coronavirus COVID-19 PCR - Final Laboratory Results 11/05/19 13:30: Urine Color Yellow, Urine Clarity Sl. Cloudy, Urine pH 5.0, Ur Specific [place] 1.015, Urine Protein 30 H, Urine Glucose (UA) Normal, Urine Ketones Negative, Urine Occult Blood 250 H, Urine Nitrite Negative, Urine Bilirubin Negative, Urine Urobilinogen 1 H, Ur Leukocyte Esterase 25 H 11/05/19 17:35: POC Glucose 85 11/06/19 06:36: WBC 10.2, RBC 3.49 L, Hgb 8.6 L, Hct 28.1 L, MCV 80.5, MCH 24.6 L, MCHC 30.6 L, RDW Std Deviation 56.8 H, RDW Coeff of Meliza 19.5 H, Plt Count 126 L, MPV 10.7 11/06/19 06:36: Sodium 137, Potassium 3.8, Chloride 108 H, Carbon Dioxide 23.0, Anion Gap 6, BUN 55 H, Creatinine 2.68 H, Estim Creat Clear Calc 27.74, Est GFR (MDRD) Af Amer 30 L, Est GFR (MDRD) Non-Af 25 L, BUN/Creatinine Ratio 20.5 H, Glucose 104, Calcium 8.1 L, Total Bilirubin 0.60, AST 406 H, ALT 509 H, Alkaline Phosphatase 43 L, Total Protein 6.6, Albumin 2.5 L, Globulin 4.1, Albumin/Globulin Ratio 0.6 L 11/06/19 06:36: Magnesium 2.6 Current Medications Acetaminophen (Tylenol) 650 mg PO Q4H PRN PRN PRN Reason: Pain Score 1-10/Temp > 100.7 F Last Admin: 11/05/19 22:00 Dose: 650 mg Documented by: Al Hydroxide/Mg Hydroxide (Mylanta Ii) 30 ml PO Q6H PRN PRN PRN Reason: Gastric Burning Albuterol Sulfate (Ventolin Aerosols) 2.5 mg INHALATION Q2H PRN PRN PRN Reason: Dyspnea, wheezing Amiodarone HCl (Cordarone) 200 mg PO BID [facility] Last Admin: 11/06/19 09:43 Dose: 200 mg Documented by: Apixaban (Eliquis) 2.5 mg PO BID [facility] Last Admin: 11/06/19 09:43 Dose: 2.5 mg Documented by: Dextrose (D50w Syringe) 0 gm IV X1 PRN; Protocol PRN Reason: Hypoglycemia Finasteride (Proscar) 5 mg PO DAILY [facility] Last Admin: 11/06/19 09:42 Dose: 5 mg Documented by: Folic Acid (Folic Acid) 1 mg PO DAILYCM [facility] Last Admin: 11/06/19 09:43 Dose: 1 mg Documented by: Glucagon () 1 mg IM .X1 PRN PRN Reason: Hypoglycemia Guaifenesin (Robitussin) 10 ml PO Q4H PRN PRN PRN Reason: COUGH Hydralazine HCl (Apresoline Iv) 10 mg IV Q4H PRN PRN PRN Reason: SBP > 160 Sodium Chloride () 250 mls @ 15 mls/hr IV .[id number] PRN PRN Reason: Saline Flush Sodium Chloride () 250 mls @ 15 mls/hr IV .[id number] PRN PRN Reason: Additional IVPB Infusion Ceftriaxone Sodium 2 gm/ (Sodium Chloride) 50 mls @ 100 mls/hr IV Q24 [facility] Last Admin: 11/06/19 09:45 Dose: 100 mls/hr Documented by: Magnesium Hydroxide (Milk Of Magnesia) 30 ml PO DAILY PRN PRN PRN Reason: Constipation Melatonin (Melatonin) 3 mg PO QHS PRN PRN PRN Reason: INSOMNIA Last Admin: 11/05/19 21:59 Dose: 3 mg Documented by: Metoprolol Tartrate (Lopressor (Beta Edna)) 25 mg PO BID [facility] Last Admin: 11/06/19 09:42 Dose: 25 mg Documented by: Morphine Sulfate () 2 mg IV Q3H PRN PRN PRN Reason: Pain Score 6-10/10 Nitroglycerin (Nitrostat) 0.4 mg SUBLINGUAL Q5M PRN PRN Reason: CARDIAC/CHEST PAIN Ondansetron HCl (Zofran) 4 mg IV Q8H PRN PRN PRN Reason: NAUSEA/VOMITING Oxycodone HCl (Oxyir) 5 mg PO Q4H PRN PRN PRN Reason: Pain Score 6-10/10 Pantoprazole Sodium (Protonix) 40 mg PO QHS [facility] Last Admin: 11/05/19 21:59 Dose: 40 mg Documented by: Pregabalin (Lyrica) 150 mg PO BID [facility] Last Admin: 11/06/19 09:43 Dose: 150 mg Documented by: Prochlorperazine Edisylate (Compazine Iv) 5 mg IV Q4H PRN PRN PRN Reason: Breakthrough Nausea/Vomiting Psyllium Hydrophilic Mucilloid (Metamucil) 1 packet PO DAILY PRN PRN PRN Reason: Constipation Senna/Docusate Sodium (Senokot-S, Radha-Colace) 2 tablet PO BID PRN PRN PRN Reason: Constipation Sodium Chloride () 10 - 40 ml IV UD PRN PRN Reason: SALINE FLUSH Last Admin: 11/04/19 04:56 Dose: 40 ml Documented by: Tamsulosin HCl (Flomax) 0.4 mg PO DAILY [facility] Last Admin: 11/06/19 09:42 Dose: 0.4 mg Documented by: Throat Lozenges (Cepacol Sore Throat Lozenge) 1 lozenge MUCOUS MEM Q2H PRN PRN PRN Reason: SORE THROAT Discharge Activity: May Not Drive Call your doctor if you observe: Fever of 101 or Higher, Numbness or Tingling, Inability to urinate, Inability to have a bowel movement, Shortness of breath, Dizziness, Fainting spells, Swelling in the ankles, Chest pain, Prolonged hiccoughing, Increased palpitations (irregular heartbeat), Calf discomfort, Uncontrolled pain Home Medications: Medications to take at Discharge Finasteride [Propecia] 1 mg PO DAILY 02/22/14 Folic Acid 1 mg PO DAILY 02/22/14 Lutein 20 mg PO DAILY 02/22/14 Multivit-Min/FA/Lycopene/Lut [Centrum Silver Tablet] 1 each PO DAILY 02/22/14 [place]-3 Fatty Acids/Fish Oil [Fish Oil 1,000 mg Softgel] 1 each PO DAILY 02/22/14 Omeprazole [Prilosec] 40 mg PO QHS 02/22/14 Adalimumab [Humira] 40 mg SQ QWEEK 03/01/14 Oxycodone HCl/Acetaminophen [Percocet 5-325] 1 tablet PO Q4H PRN PRN #20 tablet 03/01/14 Pregabalin [Lyrica] 150 mg PO BID 11/03/19 Tamsulosin HCl 0.4 mg PO DAILY 11/03/19 Amiodarone HCl [Cordarone] 200 mg PO DAILY #60 tab 11/06/19 Amoxicillin 500 mg PO BID #10 tab 11/06/19 Apixaban [Eliquis] 2.5 mg PO BID #0 11/06/19 Fenofibrate 40 mg PO DAILY #0 11/06/19 Ferrous Sulfate 325 mg PO DAILY #30 tab 11/06/19 Glipizide 5 mg PO BID #0 11/06/19 Lisinopril [Zestril] 20 mg PO DAILY #0 11/06/19 Methotrexate 7.5 mg PO Q7D #0 11/06/19 Metoprolol Tartrate [Lopressor (beta edna)] 25 mg PO BID #60 tab 11/06/19 Following Prescrptions Were Given to Patient: Amoxicillin 500 mg PO BID #10 tab Transmission Status: Received by [id number] Amiodarone HCl [Cordarone] 200 mg PO DAILY #60 tab Transmission Status: Received by [id number] Ferrous Sulfate 325 mg PO DAILY #30 tab Transmission Status: Received by [id number] Metoprolol Tartrate [Lopressor (beta edna)] 25 mg PO BID #60 tab Transmission Status: Received by [id number] Other Amb Orders: CBC W/Diff, Automated Time Frame: 11/12/19, Facility: [facility], Location: Laboratory Comprehensive Metabolic Profil Time Frame: 11/12/19, Facility: [facility], Location: Laboratory Primary Care Physician: Suraj Johnson MD [Primary Care Provider] - Please follow up with your Primary Care Physician in: in 2 weeks Please Follow Up With: Damon Welsh MD When: in 2 weeks with [facility] Horn Please Follow Up With: Vinicius Franco MD When: IN 2 WEEKS Please Follow Up With: Saleem Lara MD When: in 2-3 weeks Please Follow Up With: Nuno Morris MD When: in 4 weeks wiht kidey stone and BPH Medical Necessity - Tobacco Use Smoking Status: Former smoker Tobacco Use: Non-smoker Meaningful Use Info Meaningful Use Diagnoses (Choose all that apply): None applicable Inpatient E&M: 66022 SNF Disch >30 Min
--- NOTE | 2019-11-06 10:05 | CASEMGMT ---
DANIEL LONDON NOTE: Reviewed PT/OT notes. Additional PT recommended. To room to talk with pt. Pt sitting up in recliner chair. Discussed therapy options w/pt, including HHC and OP therapy. Pt states he does not feel that he needs either. He states he has had OP therapy in the past, but states, I think I can handle it on my own at home. Pt made aware, if he decides, in the future, that he would like therapy, either HHC or OP therapy, to discuss this with his PCP. He voices understanding. He denies any discharge planning needs/concerns. Made aware to ask for DANIEL LONDON if anything arises. He states his will be taking him home @ discharge. Cristina NAVA RN, CM
[2019-11-06] MEDS: 0.9% Saline Lock 10 ML Syringe IV (10:29)
--- NOTE | 2019-11-06 10:32 | PN.ID_ITS ---
Patient Problems: Active and Suspected Problems Suspected COVID-19 virus infection (Acute) Acute respiratory failure with hypoxia (Acute) Severe sepsis (Acute) Encephalopathy acute (Acute) Atrial fibrillation with RVR (Acute) Subjective: Feeling much better, he did not feel any fever overnight, no n/v/d. - Physical Exam Vitals/I&O's: Vital Signs Temp Pulse Resp BP Pulse Ox 98.1 F 73 18 158/65 H 96 11/06/19 09:35 11/06/19 09:42 11/06/19 09:35 11/06/19 09:42 11/06/19 09:35 Oxygen Flow Rate (L/min) 2 Oxygen Delivery Method Room Air Weight: 154 kg Body Mass Index (BMI) 44.8 Intake and Output for Last 24 Hours 11/04/19 11/05/19 11/06/19 23:59 23:59 23:59 Intake Total 6331.12 / 6331.12 2676.90 / 2676.90 125 / 125 Output Total 1125 / 1125 1950 / 1950 500 / 500 Balance 5206.12 / 5206.12 726.90 / 726.90 -375 / -375 General: Alert, Cooperative, No apparent distress Lungs: Clear to auscultation, Normal air movement Cardiovascular: Regular rate, Regular Rhythm Abdomen: Soft, Non Tender, Non-Distended Skin: No rashes Microbiology Past 72 Hours 11/03/19 19:50 Blood Culture (Wb) - Left Hand Blood Culture - Final Streptococcus agalactiae (B) 11/03/19 20:40 Blood Culture (Wb) - Venous Bacteria Detection (PCR) - Final Streptococcus agalactiae (B) 11/03/19 20:40 Blood Culture (Wb) - Venous Blood Culture - Final Streptococcus agalactiae (B) 11/03/19 21:30 Urine, Clean Catch Urine Culture - Preliminary Culture exhibits no growth. 11/03/19 21:30 Urine Catheter - Catheter Legionella Antigen - Final 11/03/19 21:30 Urine Catheter - Catheter Streptococcus pneumoniae Antigen (M - Final 11/03/19 20:40 Mucosa - Nasopharyngeal Respiratory Panel (PCR) - Final 11/03/19 20:40 Mucosa - Nasopharyngeal Coronavirus COVID-19 PCR - Final Laboratory Results 11/05/19 13:30: Urine Color Yellow, Urine Clarity Sl. Cloudy, Urine pH 5.0, Ur Specific [place] 1.015, Urine Protein 30 H, Urine Glucose (UA) Normal, Urine Ketones Negative, Urine Occult Blood 250 H, Urine Nitrite Negative, Urine Bilirubin Negative, Urine Urobilinogen 1 H, Ur Leukocyte Esterase 25 H 11/05/19 17:35: POC Glucose 85 11/06/19 06:36: WBC 10.2, RBC 3.49 L, Hgb 8.6 L, Hct 28.1 L, MCV 80.5, MCH 24.6 L, MCHC 30.6 L, RDW Std Deviation 56.8 H, RDW Coeff of Meliza 19.5 H, Plt Count 126 L, MPV 10.7 11/06/19 06:36: Sodium 137, Potassium 3.8, Chloride 108 H, Carbon Dioxide 23.0, Anion Gap 6, BUN 55 H, Creatinine 2.68 H, Estim Creat Clear Calc 27.74, Est GFR (MDRD) Af Amer 30 L, Est GFR (MDRD) Non-Af 25 L, BUN/Creatinine Ratio 20.5 H, Glucose 104, Calcium 8.1 L, Total Bilirubin 0.60, AST 406 H, ALT 509 H, Alkaline Phosphatase 43 L, Total Protein 6.6, Albumin 2.5 L, Globulin 4.1, Albumin/Globulin Ratio 0.6 L 11/06/19 06:36: Magnesium 2.6 Current Medications Acetaminophen (Tylenol) 650 mg PO Q4H PRN PRN PRN Reason: Pain Score 1-10/Temp > 100.7 F Last Admin: 11/05/19 22:00 Dose: 650 mg Documented by: Al Hydroxide/Mg Hydroxide (Mylanta Ii) 30 ml PO Q6H PRN PRN PRN Reason: Gastric Burning Albuterol Sulfate (Ventolin Aerosols) 2.5 mg INHALATION Q2H PRN PRN PRN Reason: Dyspnea, wheezing Amiodarone HCl (Cordarone) 200 mg PO BID [facility] Last Admin: 11/06/19 09:43 Dose: 200 mg Documented by: Apixaban (Eliquis) 2.5 mg PO BID [facility] Last Admin: 11/06/19 09:43 Dose: 2.5 mg Documented by: Dextrose (D50w Syringe) 0 gm IV X1 PRN; Protocol PRN Reason: Hypoglycemia Finasteride (Proscar) 5 mg PO DAILY [facility] Last Admin: 11/06/19 09:42 Dose: 5 mg Documented by: Folic Acid (Folic Acid) 1 mg PO DAILYCM [facility] Last Admin: 11/06/19 09:43 Dose: 1 mg Documented by: Glucagon () 1 mg IM .X1 PRN PRN Reason: Hypoglycemia Guaifenesin (Robitussin) 10 ml PO Q4H PRN PRN PRN Reason: COUGH Hydralazine HCl (Apresoline Iv) 10 mg IV Q4H PRN PRN PRN Reason: SBP > 160 Sodium Chloride () 250 mls @ 15 mls/hr IV .[id number] PRN PRN Reason: Saline Flush Sodium Chloride () 250 mls @ 15 mls/hr IV .[id number] PRN PRN Reason: Additional IVPB Infusion Ceftriaxone Sodium 2 gm/ (Sodium Chloride) 50 mls @ 100 mls/hr IV Q24 [facility] Last Infusion: 11/06/19 10:25 Dose: Infused Documented by: Magnesium Hydroxide (Milk Of Magnesia) 30 ml PO DAILY PRN PRN PRN Reason: Constipation Melatonin (Melatonin) 3 mg PO QHS PRN PRN PRN Reason: INSOMNIA Last Admin: 11/05/19 21:59 Dose: 3 mg Documented by: Metoprolol Tartrate (Lopressor (Beta Edna)) 25 mg PO BID [facility] Last Admin: 11/06/19 09:42 Dose: 25 mg Documented by: Morphine Sulfate () 2 mg IV Q3H PRN PRN PRN Reason: Pain Score 6-10/10 Nitroglycerin (Nitrostat) 0.4 mg SUBLINGUAL Q5M PRN PRN Reason: CARDIAC/CHEST PAIN Ondansetron HCl (Zofran) 4 mg IV Q8H PRN PRN PRN Reason: NAUSEA/VOMITING Oxycodone HCl (Oxyir) 5 mg PO Q4H PRN PRN PRN Reason: Pain Score 6-10/10 Pantoprazole Sodium (Protonix) 40 mg PO QHS [facility] Last Admin: 11/05/19 21:59 Dose: 40 mg Documented by: Pregabalin (Lyrica) 150 mg PO BID [facility] Last Admin: 11/06/19 09:43 Dose: 150 mg Documented by: Prochlorperazine Edisylate (Compazine Iv) 5 mg IV Q4H PRN PRN PRN Reason: Breakthrough Nausea/Vomiting Psyllium Hydrophilic Mucilloid (Metamucil) 1 packet PO DAILY PRN PRN PRN Reason: Constipation Senna/Docusate Sodium (Senokot-S, Radha-Colace) 2 tablet PO BID PRN PRN PRN Reason: Constipation Sodium Chloride () 10 - 40 ml IV UD PRN PRN Reason: SALINE FLUSH Last Admin: 11/06/19 10:29 Dose: 10 ml Documented by: Tamsulosin HCl (Flomax) 0.4 mg PO DAILY [facility] Last Admin: 11/06/19 09:42 Dose: 0.4 mg Documented by: Throat Lozenges (Cepacol Sore Throat Lozenge) 1 lozenge MUCOUS MEM Q2H PRN PRN PRN Reason: SORE THROAT Medical Necessity - Tobacco Use Smoking Status: Former smoker Tobacco Use: Non-smoker Route of nutrition/ use of supplements: [] Nutritional Intake: [] IV Site: [] Peter Catheter: [] - Assessment/Plan Antibiotics: [] Assessment/Plan: [] Active and Suspected Problems Suspected COVID-19 virus infection (Acute) Acute respiratory failure with hypoxia (Acute) Severe sepsis (Acute) Encephalopathy acute (Acute) Atrial fibrillation with RVR (Acute) severe sepsis with GBS bacteremia complicated by BRONSON - possible source is dog scratches. COVID neg, other cxs neg. BRONSON and LFTs now improving. Feeling better, still low grade fever overnight. On ceftriaxone. Ok for home on po amoxicillin 500mg bid for 5 more days. D/w Dr. Fabian. Will follow as needed
--- NOTE | 2019-11-06 11:05 | PHA.DC.COU ---
Pharmacy Services has performed discharge medication counseling for this patient. The patient was counseled on the following discharge medications and changes in medications for homegoing review. 1. AMIODARONE 2. AMOXICILLIN The Reason for Use, instructions for use, and potential side effects were reviewed for all new medications. The patient's questions regarding all of their medications were answered. The patient was able to verbally demonstrate an understanding of their discharge medications.
--- NOTE | 2019-11-07 14:23 | CASEMGMT ---
DANIEL CM DC PHONE CALL DC DATE: 11.07.19 DC DISPOSITION: Home DC DIAGNOSIS: COVID negative LACE/STRATA: 04/22 F/U APPTS MADE PRIOR TO DC: yes PRESCRIPTIONS ACQUIRED BY PT: yes Intro role of CM to patient via phone. Pt states he does not have questions re: prescriptions, f/u or instructions. Appointments were made. Pt did state staff care was excellent. Care improvement suggestions were given and will be forwarded. Ronak BUTTN RN ACM
--- NOTE | 2019-11-07 14:37 | CASEMGMT ---
DANIEL CM DC PHONE CALL DC DATE: 11.06.19 DC DISPOSITION: Home DC DIAGNOSIS: COVID negative LACE/STRATA: 04/22 F/U APPTS MADE PRIOR TO DC: yes PRESCRIPTIONS ACQUIRED BY PT: yes Intro role of CM to patient via phone. Pt states he does not have questions re: prescriptions, f/u or instructions. Appointments were made. Pt did state staff care was excellent. Care improvement suggestions were given and will be forwarded. Ronak BUTTN RN ACM
== END 2019-11-06 15:30 | disposition home or self-care (01) | DRG 871 ==
LOC: ED 19:54 → ICU 22:45 → PCU 11-05 22:00
PROVIDERS: Internal Medicine; Admitting Provider Family Medicine; Emergency Provider Emergency Medicine; PCP Family Medicine; Referring Provider Family Medicine; Visit Provider Internal Medicine
DX: A40.1 Sepsis due to streptococcus, group B (principal); J96.01 Acute respiratory failure with hypoxia; G93.41 Metabolic encephalopathy; N17.0 Acute kidney failure with tubular necrosis; Z68.41 Body mass index [BMI] 40.0-44.9, adult; E66.2 Morbid (severe) obesity with alveolar hypoventilation; L97.329 Non-pressure chronic ulcer of left ankle with unspecified severity; I95.9 Hypotension, unspecified; R65.20 Severe sepsis without septic shock; I48.0 Paroxysmal atrial fibrillation; I12.9 Hypertensive chronic kidney disease with stage 1 through stage 4 chronic kidney disease, or unspecified chronic kidney disease; N18.3 Chronic kidney disease, stage 3 (moderate); D63.1 Anemia in chronic kidney disease; E78.5 Hyperlipidemia, unspecified; E87.70 Fluid overload, unspecified; N40.0 Benign prostatic hyperplasia without lower urinary tract symptoms; K21.9 Gastro-esophageal reflux disease without esophagitis; F32.9 Major depressive disorder, single episode, unspecified; R73.9 Hyperglycemia, unspecified; R60.0 Localized edema; M06.00 Rheumatoid arthritis without rheumatoid factor, unspecified site; M15.9 Polyosteoarthritis, unspecified; G56.03 Carpal tunnel syndrome, bilateral upper limbs; M47.892 Other spondylosis, cervical region; M47.897 Other spondylosis, lumbosacral region; I87.2 Venous insufficiency (chronic) (peripheral); Z79.01 Long term (current) use of anticoagulants; Z79.1 Long term (current) use of non-steroidal anti-inflammatories (NSAID); Z79.899 Other long term (current) drug therapy; Z87.891 Personal history of nicotine dependence
CPT/HCPCS: 36415; 51702; 71045; 76770; 80053; 80202; 81001; 81002; 82550; 82728; 82962; 83036; 83605; 83615; 83735; 83880; 84145; 84443; 84484; 85025; 85027; 85379; 85384; 85610; 85730; 86140; 87040; 87077; 87086; 87149; 87186; 87449; 87633; 87635; 87641; 92960; 93005; 93306; 93970; 94002; 94003; 96360; 96372; 97110; 97116; 97163; 97166; 97530; 99285; 99406; G2023; J7030; J7040; J7050; Q9957; A4216; C8929; J0696; J1940; U0002

== ENCOUNTER 2019-11-15 10:00 | Outpatient (RCR) | payer MEDICARE, SELFPAY ==
[2019-11-03 23:25] VITALS: BMI 44.8
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
--- NOTE | 2019-11-14 11:28 | WC ---
Spoke with patient informing him of Vascular Studies scheduled for 11/15/2019 @ 10AM and his followup appt with Dr Oconnor on 11/20/2019 @ 10:30
--- NOTE | 2019-11-15 10:23 | ART_ITS ---
Reason For Study: PVD Procedure A bilateral lower extremity continuous wave Doppler with analog waveform analysis and ankle brachial indexes. Left Segmental Pressures Left brachial= 149mmHg. Left posterior tibial artery = 179mmHg. Left dorsalis pedis artery = 194mmHg. Left digit = 141 mmHg. The left dorsalis pedis waveforms are triphasic. The left posterior tibial artery waveforms are triphasic. Right Segmental Pressures Right brachial= 149mmHg. Right posterior tibial artery = 191mmHg. Right dorsalis pedis artery = 198mmHg. Right digit = 117 mmHg. The right dorsalis pedis waveforms are triphasic. The right posterior tibial artery waveforms are triphasic. Indices The right ankle brachial index by the dorsalis pedis is 1.33. The right ankle brachial index by the posterior tibial artery is 1.28. The right digital-brachial index is .79. The left ankle brachial index by the dorsalis pedis is 1.3. The left ankle brachial index by the posterior tibial artery is 1.2. The left digital-brachial index is .95. Interpretation Summary Triphasic Doppler waveforms are noted at ankle level bilaterally. Pulse-volume recordings appear satisfactory at ankle and digital level bilaterally. Resting ankle-brachial indices are normal bilaterally. Digital-brachial indices are normal bilaterally. There is no evidence of significant arterial occlusive disease in the lower extremities bilaterally. Ordering Physician: Mark Oconnor Performed By: CLAUDIA JOHNSON Maricel
--- NOTE | 2019-11-15 10:23 | VDLE_ITS ---
Reason For Study: ulcer, edema RIGHT LEFT CFV is compressible, spontaneous, phasic, CFV is compressible, spontaneous, phasic, competent and demonstrates normal competent, and demonstrates normal augmentation. augmentation. FV is compressible, spontaneous, phasic, FV is compressible, spontaneous, phasic, competent and demonstrates normal competent and demonstrates normal augmentation. augmentation. POP V is compressible, spontaneous, phasic, POP V is compressible, spontaneous, phasic, competent and demonstrates normal competent and demonstrates normal augmentation. augmentation. T/P Trunk is compressible. T/P Trunk is compressible. PTV is compressible. PTV is compressible. RT PerV is compressible. LT PerV is compressible. SFJ is competent and measures .81 cm. SFJ is competent and measures .51 cm. GSV proximal thigh measures .47 x .46 cm. GSV proximal thigh measures .47 x .49 cm. GSV is competent throughout. GSV above knee is competent. SSV proximal calf is competent and GSV is incompetent for greater than .5 measures .36 x .39 cm. seconds below the knee. Procedure SSV proximal calf is competent and Exam performed in department. measures .24 x .26 cm. The exam was abbreviated due to the COVID 19 protocol. The exam was of poor technical quality due to pt body habitus. Interpretation Summary Deep veins of the lower extremities are bilaterally patent and compressible segmentally. There is no evidence of deep vein thrombosis on either side. Valvular competence appears intact within the proximal deep venous systems bilaterally. The great saphenous veins appear bilaterally patent and compressible segmentally. Sapheno-femoral junctions are bilaterally competent . The right great saphenous vein appears segmentally competent. The left great saphenous vein appears competent above the knee. The left great saphenous vein appears incompetent below the knee. Small saphenous veins are patent and competent bilaterally. Ordering Physician: Mark Oconnor Performed By: Alam, Ovidio, RVT
[2019-11-15 10:35] LABS: Absolute Lymphocyte Count 1.25 X10^3/uL (0.83-4.51); Absolute Neutrophil Count 3.1 X10^3/uL (2.0-7.7); Basophil# 0.04 X10^3/uL; Basophil% 0.8 % (0-1); Eosinophil# 0.11 X10^3/uL; Eosinophils% 2.3 % (0-5); Hematocrit 31.9 % (40-54); Hemoglobin 9.4 g/dL (13.0-16.5); Lymphocyte # 1.25 X10^3/ul (4.0); Lymphocyte % 25.8 % (19-41); Mean Corp Hgb Conc 29.5 g/dL (32-36); Mean Corpuscular Hgb 24.9 pg (27.0-32.0); Mean Corpuscular Volume 84.4 fL (80-94); Mean Platelet Vol. 11.4 fl (6.2-12.0); Monocyte# 0.31 X10^3/uL; Monocyte% 6.4 % (0-10); NRBC Flagged by Analyzer 0 % (0-5); Neutrophil % 63.9 % (47-70); POSITIVE MORPHOLOGY YES; Platelet Count 226 K/mm3 (150-450); RBC Distribution Width CV 20.2 % (11.6-14.6); Red Blood Count 3.78 M/mm3 (4.6-6.2); White Blood Count 4.9 K/mm3 (4.4-11.0)
[2019-11-15 10:56] LABS: ALB/GLOB Ratio 0.7 RATIO (0.9-2.4); AST(SGOT) 28 U/L (15-37); Alanine Aminotransfer ALT/SGPT 59 U/L (16-61); Alkaline Phosphatase 56 U/L (45-117); Anion Gap 5 (5-15); BUN 21 mg/dL (7-18); BUN/Creat Ratio 11.1 RATIO (10-20); Calcium,Total 8.5 mg/dL (8.5-10.1); Chloride 112 mmol/L (98-107); Creatinine, Serum 1.89 mg/dL (0.70-1.30); EST Glomerular Filtration Rate 37 mL/min (>60); Est Glom Filt Rate - Afr Amer 45 mL/min (>60); Globulin 4.4 g/dL (2.2-4.2); Glucose 123 mg/dL (74-106); Potassium 4.1 mmol/L (3.5-5.1); Protein, Total 7.4 g/dL (6.4-8.2); Sodium Level 143 mmol/L (136-145)
[2019-11-15 10:59] LABS: Differential Indicated SCAN CRITERIA MET
[2019-11-15 11:00] LABS: Anisocytosis 2+
== END 2019-11-18 23:59 ==
LOC: CVS 10:00
PROVIDERS: Internal Medicine; PCP Family Medicine; Referring Provider Surgery; Visit Provider Surgery
DX: L97.829 Non-pressure chronic ulcer of other part of left lower leg with unspecified severity (principal); I73.9 Peripheral vascular disease, unspecified; R09.89 Other specified symptoms and signs involving the circulatory and respiratory systems; R60.0 Localized edema
CPT/HCPCS: 36415; 80053; 85025; 93922; 93970

== ENCOUNTER 2019-12-18 10:30 | Outpatient (RCR) | payer MEDICARE, SELFPAY ==
[2019-11-19 08:16] VITALS: BMI 44.9
[2019-11-20 10:27] VITALS: BP 116/82; PULSE 68; RESP 22; TEMP 36.8; BMI 44.9
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
[2019-11-23 14:22] VITALS: BP 166/72; PULSE 67; RESP 16; TEMP 36.9; BMI 44.9
[2019-11-27 10:50] VITALS: BP 166/83; PULSE 68; RESP 16; TEMP 36.4; BMI 44.9
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
[2019-11-30 11:15] VITALS: BP 164/61; PULSE 59; RESP 18; TEMP 37.1; BMI 44.9
[2019-12-04 10:47] VITALS: BP 175/81; PULSE 67; RESP 22; TEMP 37.1; BMI 44.9
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
[2019-12-06 12:33] VITALS: BP 145/88; PULSE 66; RESP 18; TEMP 37.2; BMI 44.9
[2019-12-11 11:54] VITALS: BP 160/82; PULSE 66; RESP 22; TEMP 37.1; BMI 44.9
[2019-12-14 14:35] VITALS: BP 156/77; PULSE 68; RESP 18; TEMP 36.6; BMI 44.9
[2019-12-18 10:30] VITALS: BP 160/67; PULSE 64; RESP 22; TEMP 36.9; BMI 44.9
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
== END 2019-12-18 23:59 ==
LOC: WC 10:30
PROVIDERS: PCP Family Medicine; Visit Provider Surgery
DX: S81.801A Unspecified open wound, right lower leg, initial encounter (principal); I89.0 Lymphedema, not elsewhere classified; R60.0 Localized edema; G47.33 Obstructive sleep apnea (adult) (pediatric); D64.9 Anemia, unspecified; E66.01 Morbid (severe) obesity due to excess calories; E78.5 Hyperlipidemia, unspecified; I48.0 Paroxysmal atrial fibrillation; K21.9 Gastro-esophageal reflux disease without esophagitis; I10 Essential (primary) hypertension; M06.9 Rheumatoid arthritis, unspecified; N40.0 Benign prostatic hyperplasia without lower urinary tract symptoms; Z68.41 Body mass index [BMI] 40.0-44.9, adult; Z79.01 Long term (current) use of anticoagulants; Z79.84 Long term (current) use of oral hypoglycemic drugs; Z82.49 Family history of ischemic heart disease and other diseases of the circulatory system; Z87.442 Personal history of urinary calculi; Z87.891 Personal history of nicotine dependence; Z88.5 Allergy status to narcotic agent; Z96.643 Presence of artificial hip joint, bilateral; Z96.653 Presence of artificial knee joint, bilateral; R73.03 Prediabetes; Z20.828 Contact with and (suspected) exposure to other viral communicable diseases; M79.89 Other specified soft tissue disorders
CPT/HCPCS: 11042; 11045; 29580; 29581; 97597; 97598; 99213; 99214; G0463

== ENCOUNTER 2020-01-01 09:30 | Outpatient (RCR) | payer MEDICARE, SELFPAY ==
[2019-12-19 00:33] VITALS: BP 160/67; PULSE 64; RESP 22; TEMP 36.9
[2019-12-20 13:18] VITALS: BP 139/60; PULSE 78; RESP 20; TEMP 37.3; BMI 44.9
[2019-12-25 12:38] VITALS: BP 156/84; PULSE 64; RESP 20; TEMP 36.6; BMI 44.9
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
[2019-12-28 14:12] VITALS: BP 148/64; PULSE 69; RESP 18; TEMP 36.9; BMI 44.9
[2020-01-01 09:30] VITALS: BP 164/80; PULSE 68; RESP 20; TEMP 36.5; BMI 44.9
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
== END 2020-01-18 23:59 ==
LOC: WC 09:30
PROVIDERS: PCP Family Medicine; Visit Provider Surgery
DX: L97.221 Non-pressure chronic ulcer of left calf limited to breakdown of skin (principal); I89.0 Lymphedema, not elsewhere classified; Q85.00 Neurofibromatosis, unspecified; I10 Essential (primary) hypertension; G47.33 Obstructive sleep apnea (adult) (pediatric); I48.0 Paroxysmal atrial fibrillation; Z79.01 Long term (current) use of anticoagulants; E66.01 Morbid (severe) obesity due to excess calories; Z68.41 Body mass index [BMI] 40.0-44.9, adult; Z87.891 Personal history of nicotine dependence
CPT/HCPCS: 29581; 97597; 99212; 99213; G0463

== ENCOUNTER → 2020-01-16 12:34 | Outpatient (CLI) | payer MEDICARE, SELFPAY ==
[2020-01-01 09:30] VITALS: BMI 44.9
[2020-01-16 12:46] LABS: Bacteria 0 SEEN /hpf (None Seen); Mucous, Urine 0 SEEN /hpf (<or=2+); Squamous Epithelial Cells - UA 0 SEEN /hpf (0-5)
[2020-01-16 15:43] LABS: Color, Urine Yellow (Yellow); Glucose, Dipstick Normal (Normal); Ketone-Dipstick 5 mg/dl (Negative); Leukocyte Esterase-Dipstick 25 /ul (Negative); Nitrite-Dipstick Negative (Negative); Occult Blood-Urine 10 /ul (Negative); Protein-Dipstick Negative (Negative); Urine Bilirubin Dipstick Negative (Negative); Urine Clarity Clear (Clear); Urine Urobilinogen 1 mg/dl (Normal)
[2020-01-16 15:50] LABS: Protein, Urine (Random) 11.5 mg/dL (<11.9); Protein:Creat Ratio 106 mg/g CRE (0-200)
[2020-01-16 15:51] LABS: Red Blood Cells-Urine 0-5 SEEN /hpf (0-5); White Blood Cells 5-10 SEEN /hpf (0-5)
[2020-01-21 14:08] LABS: PROELU- Albumin, Urine 50.9 % (.); PROELU- Alpha-1-Globulin,Ur 1.9 % (.); PROELU- Alpha-2-Globulin,Ur 10.2 % (.); PROELU- Beta Globulin, Ur 21.2 % (.); PROELU- Gamma Globulin, Ur 15.7 % (.); Total Protein, Ur 12.1 mg/dL (Not Estab.)
== END ==
PROVIDERS: PCP Family Medicine; Referring Provider Internal Medicine; Visit Provider Internal Medicine
DX: N18.3 Chronic kidney disease, stage 3 (moderate) (principal)
CPT/HCPCS: 81001; 82570; 84156; 84166

== ENCOUNTER → 2020-01-28 12:10 | Outpatient (CLI) | payer MEDICARE, SELFPAY ==
[2020-01-01 09:30] VITALS: BMI 44.9
[2020-01-28 15:07] LABS: Vitamin D,25 Hydroxy 41.7 ng/mL
[2020-01-28 15:16] LABS: 24 Hour Urine Protein 271.8 mg/24HR (<150 MG/24HR); 24HR. UA Prot. Total Volume 1800 mL; Anion Gap 7 (5-15); BUN 17 mg/dL (7-18); BUN/Creat Ratio 17.2 RATIO (10-20); Calcium,Total 8.7 mg/dL (8.5-10.1); Chloride 106 mmol/L (98-107); Creatinine, Serum 0.99 mg/dL (0.70-1.30); EST Glomerular Filtration Rate 79 mL/min (>60); Est Glom Filt Rate - Afr Amer 95 mL/min (>60); Glucose 86 mg/dL (74-106); Phosphorus 2.1 mg/dL (2.5-4.9); Potassium 3.9 mmol/L (3.5-5.1); Sodium Level 139 mmol/L (136-145); Urine Protein (24 Hour) 15.1 mg/dL (<11.9)
[2020-01-28 15:26] LABS: Creat.Clear Total Volume 1800 mL; Creatinine Clearance 198 ml/min (100-200); EST Glomerular Filtration Rate 79 mL/min (>60); Est Glom Filt Rate - Afr Amer 95 mL/min (>60)
[2020-01-29 11:32] LABS: PTHIN 30.1 pg/mL (18.4-80.1)
[2020-01-29 16:08] LABS: PROEL- A/G Ratio 0.9 (0.7-1.7); PROEL- Albumin 3.4 g/dL (2.9-4.4); PROEL- Alpha-1 Globulin 0.3 g/dL (0.0-0.4); PROEL- Alpha-2 Globulin 0.8 g/dL (0.4-1.0); PROEL- Beta Globulin 1.6 g/dL (0.7-1.3); PROEL- Gamma Globulin 1.1 g/dL (0.4-1.8); PROEL- Globulin, Total 3.7 g/dL (2.2-3.9); PROEL- TOTAL PROTEIN 7.1 g/dL (6.0-8.5)
== END ==
PROVIDERS: PCP Family Medicine; Referring Provider Internal Medicine; Visit Provider Internal Medicine
DX: N18.3 Chronic kidney disease, stage 3 (moderate) (principal)
CPT/HCPCS: 36415; 80048; 82306; 82575; 83970; 84100; 84156; 84165

== ENCOUNTER → 2020-03-19 12:35 | Outpatient (CLI) | payer MEDICARE, SELFPAY ==
[2020-02-19 11:10] VITALS: BMI 42.8
[2020-03-19 15:29] LABS: Anion Gap 3 (5-15); BUN 20 mg/dL (7-18); BUN/Creat Ratio 20.4 RATIO (10-20); Calcium,Total 9.3 mg/dL (8.5-10.1); Chloride 107 mmol/L (98-107); Creatinine, Serum 0.98 mg/dL (0.70-1.30); EST Glomerular Filtration Rate 80 mL/min (>60); Est Glom Filt Rate - Afr Amer 96 mL/min (>60); Glucose 90 mg/dL (74-106); Potassium 4.3 mmol/L (3.5-5.1); Sodium Level 140 mmol/L (136-145)
[2020-03-19 15:30] LABS: Protein, Urine (Random) 11.4 mg/dL (<11.9); Protein:Creat Ratio 107 mg/g CRE (0-200)
[2020-03-19 15:38] LABS: Color, Urine Yellow (Yellow); Glucose, Dipstick Normal (Normal); Ketone-Dipstick Negative (Negative); Leukocyte Esterase-Dipstick 100 /ul (Negative); Nitrite-Dipstick Negative (Negative); Occult Blood-Urine 50 /ul (Negative); Protein-Dipstick 15 mg/dl (Negative); Urine Bilirubin Dipstick Negative (Negative); Urine Clarity Clear (Clear); Urine Urobilinogen 1 mg/dl (Normal); Urine pH 6.5 (5.0 - 8.0)
[2020-03-21 16:08] LABS: PROEL- A/G Ratio 0.9 (0.7-1.7); PROEL- Albumin 3.4 g/dL (2.9-4.4); PROEL- Alpha-1 Globulin 0.3 g/dL (0.0-0.4); PROEL- Alpha-2 Globulin 0.7 g/dL (0.4-1.0); PROEL- Beta Globulin 1.6 g/dL (0.7-1.3); PROEL- Globulin, Total 3.6 g/dL (2.2-3.9)
== END ==
PROVIDERS: PCP Family Medicine; Referring Provider Internal Medicine; Visit Provider Internal Medicine
DX: N18.3 Chronic kidney disease, stage 3 (moderate) (principal)
CPT/HCPCS: 36415; 80048; 81002; 82570; 84156; 84165

== ENCOUNTER → 2020-04-28 12:21 | Outpatient (CLI) | payer MEDICARE, SELFPAY ==
[2020-02-19 11:10] VITALS: BMI 42.8
[2020-04-28 15:14] LABS: Absolute Lymphocyte Count 1.78 X10^3/uL (0.83-4.51); Basophil# 0.03 X10^3/uL; Basophil% 0.7 % (0-1); Eosinophils% 2.2 % (0-5); Hematocrit 42.1 % (40-54); Hemoglobin 13.5 g/dL (13.0-16.5); Lymphocyte # 1.78 X10^3/ul (4.0); Lymphocyte % 38.9 % (19-41); Mean Corp Hgb Conc 32.1 g/dL (32-36); Mean Corpuscular Hgb 30.9 pg (27.0-32.0); Mean Corpuscular Volume 96.3 fL (80-94); Mean Platelet Vol. 10.5 fl (6.2-12.0); Monocyte# 0.59 X10^3/uL; Monocyte% 12.9 % (0-10); NRBC Flagged by Analyzer 0 % (0-5); Neutrophil # 2.04 X10^3/uL (2.7-7.7); Neutrophil % 44.4 % (47-70); Platelet Count 163 K/mm3 (150-450); RBC Distribution Width CV 15.4 % (11.6-14.6); RBC Distribution Width SD 55.5 fl (35.1-43.9); Red Blood Count 4.37 M/mm3 (4.6-6.2); White Blood Count 4.6 K/mm3 (4.4-11.0)
[2020-04-28 15:33] LABS: ALB/GLOB Ratio 0.9 RATIO (0.9-2.4); AST(SGOT) 27 U/L (15-37); Alanine Aminotransfer ALT/SGPT 42 U/L (16-61); Albumin, Serum 3.7 g/dL (3.2-5.0); Alkaline Phosphatase 65 U/L (45-117); Anion Gap 3 (5-15); BUN 28 mg/dL (7-18); BUN/Creat Ratio 24.8 RATIO (10-20); Calcium,Total 9.7 mg/dL (8.5-10.1); Chloride 106 mmol/L (98-107); Creatinine, Serum 1.13 mg/dL (0.70-1.30); EST Glomerular Filtration Rate 68 mL/min (>60); Est Glom Filt Rate - Afr Amer 82 mL/min (>60); Globulin 4.2 g/dL (2.2-4.2); Glucose 88 mg/dL (74-106); Potassium 4.3 mmol/L (3.5-5.1); Protein, Total 7.9 g/dL (6.4-8.2); Sodium Level 138 mmol/L (136-145)
== END ==
PROVIDERS: PCP Family Medicine; Referring Provider Internal Medicine Rheumatology; Visit Provider Internal Medicine Rheumatology
DX: M06.00 Rheumatoid arthritis without rheumatoid factor, unspecified site (principal); M15.9 Polyosteoarthritis, unspecified; G56.03 Carpal tunnel syndrome, bilateral upper limbs; K21.9 Gastro-esophageal reflux disease without esophagitis; I48.0 Paroxysmal atrial fibrillation; M47.892 Other spondylosis, cervical region; M47.897 Other spondylosis, lumbosacral region; I87.2 Venous insufficiency (chronic) (peripheral); Z79.899 Other long term (current) drug therapy
CPT/HCPCS: 36415; 80053; 85025

== ENCOUNTER → 2020-07-09 12:49 | Outpatient (CLI) | payer MEDICARE, SELFPAY ==
[2020-02-19 11:10] VITALS: BMI 42.8
[2020-07-09 15:35] LABS: AST(SGOT) 23 U/L (15-37); Alanine Aminotransfer ALT/SGPT 41 U/L (16-61); Albumin, Serum 3.6 g/dL (3.2-5.0); Alkaline Phosphatase 47 U/L (45-117); Anion Gap 4 (5-15); BUN 24 mg/dL (7-18); BUN/Creat Ratio 23.8 RATIO (10-20); Calcium,Total 9.1 mg/dL (8.5-10.1); Chloride 109 mmol/L (98-107); Creatinine, Serum 1.01 mg/dL (0.70-1.30); EST Glomerular Filtration Rate 77 mL/min (>60); Est Glom Filt Rate - Afr Amer 93 mL/min (>60); Globulin 3.7 g/dL (2.2-4.2); Glucose 64 mg/dL (74-106); Potassium 4.2 mmol/L (3.5-5.1); Protein, Total 7.3 g/dL (6.4-8.2); Sodium Level 140 mmol/L (136-145)
[2020-07-09 18:07] LABS: Absolute Lymphocyte Count 1.88 X10^3/uL (0.83-4.51); Absolute Neutrophil Count 3.9 X10^3/uL (2.0-7.7); Basophil# 0.04 X10^3/uL; Basophil% 0.6 % (0-1); Eosinophil# 0.07 X10^3/uL; Hematocrit 39.2 % (40-54); Hemoglobin 12.8 g/dL (13.0-16.5); Lymphocyte # 1.88 X10^3/ul (4.0); Lymphocyte % 27.8 % (19-41); Mean Corp Hgb Conc 32.7 g/dL (32-36); Mean Corpuscular Hgb 32.3 pg (27.0-32.0); Mean Platelet Vol. 10.8 fl (6.2-12.0); Monocyte# 0.85 X10^3/uL; Monocyte% 12.6 % (0-10); NRBC Flagged by Analyzer 0 % (0-5); Neutrophil # 3.88 X10^3/uL (2.7-7.7); Neutrophil % 57.3 % (47-70); Platelet Count 149 K/mm3 (150-450); RBC Distribution Width CV 13.8 % (11.6-14.6); RBC Distribution Width SD 50.3 fl (35.1-43.9); Red Blood Count 3.96 M/mm3 (4.6-6.2); White Blood Count 6.8 K/mm3 (4.4-11.0)
== END ==
PROVIDERS: PCP Family Medicine; Referring Provider Internal Medicine Rheumatology; Visit Provider Internal Medicine Rheumatology
DX: M06.00 Rheumatoid arthritis without rheumatoid factor, unspecified site (principal); M15.9 Polyosteoarthritis, unspecified; G56.03 Carpal tunnel syndrome, bilateral upper limbs; K21.9 Gastro-esophageal reflux disease without esophagitis; I48.0 Paroxysmal atrial fibrillation; M47.892 Other spondylosis, cervical region; M47.897 Other spondylosis, lumbosacral region; I87.2 Venous insufficiency (chronic) (peripheral); Z79.899 Other long term (current) drug therapy
CPT/HCPCS: 36415; 80053; 85025

== ENCOUNTER → 2020-10-06 11:33 | Outpatient (CLI) | payer MEDICARE, SELFPAY ==
[2020-02-19 11:10] VITALS: BMI 42.8
[2020-10-06 15:39] LABS: Absolute Lymphocyte Count 1.58 X10^3/uL (0.83-4.51); Absolute Neutrophil Count 4.1 X10^3/uL (2.0-7.7); Basophil# 0.03 X10^3/uL; Basophil% 0.4 % (0-1); Eosinophil# 0.04 X10^3/uL; Eosinophils% 0.6 % (0-5); Hematocrit 35.5 % (40-54); Hemoglobin 11.2 g/dL (13.0-16.5); Lymphocyte # 1.58 X10^3/ul (0.83-4.51); Lymphocyte % 23.4 % (19-41); Mean Corp Hgb Conc 31.5 g/dL (32-36); Mean Corpuscular Hgb 30.9 pg (27.0-32.0); Mean Corpuscular Volume 98.1 fL (80-94); Monocyte# 0.85 X10^3/uL; Monocyte% 12.6 % (0-10); NRBC Flagged by Analyzer 0 % (0-5); Neutrophil # 4.11 X10^3/uL (2.7-7.7); Neutrophil % 61.1 % (47-70); Platelet Count 229 K/mm3 (150-450); RBC Distribution Width CV 14.6 % (11.6-14.6); RBC Distribution Width SD 52.2 fl (35.1-43.9); Red Blood Count 3.62 M/mm3 (4.6-6.2); White Blood Count 6.7 K/mm3 (4.4-11.0)
[2020-10-06 15:53] LABS: ALB/GLOB Ratio 0.8 RATIO (0.9-2.4); AST(SGOT) 18 U/L (15-37); Alanine Aminotransfer ALT/SGPT 29 U/L (16-61); Albumin, Serum 3.4 g/dL (3.2-5.0); Alkaline Phosphatase 51 U/L (45-117); Anion Gap 7 (5-15); BUN 26 mg/dL (7-18); BUN/Creat Ratio 20.6 RATIO (10-20); Calcium,Total 9.2 mg/dL (8.5-10.1); Chloride 104 mmol/L (98-107); Creatinine, Serum 1.26 mg/dL (0.70-1.30); EST Glomerular Filtration Rate 60 mL/min (>60); Est Glom Filt Rate - Afr Amer 72 mL/min (>60); Globulin 4.1 g/dL (2.2-4.2); Glucose 59 mg/dL (74-106); Potassium 3.9 mmol/L (3.5-5.1); Protein, Total 7.5 g/dL (6.4-8.2); Sodium Level 139 mmol/L (136-145)
== END ==
PROVIDERS: PCP Family Medicine; Referring Provider Internal Medicine Rheumatology; Visit Provider Internal Medicine Rheumatology
DX: M06.00 Rheumatoid arthritis without rheumatoid factor, unspecified site (principal); M15.9 Polyosteoarthritis, unspecified; G56.03 Carpal tunnel syndrome, bilateral upper limbs; K21.9 Gastro-esophageal reflux disease without esophagitis; I48.0 Paroxysmal atrial fibrillation; M47.892 Other spondylosis, cervical region; M47.897 Other spondylosis, lumbosacral region; I87.2 Venous insufficiency (chronic) (peripheral); L40.8 Other psoriasis; Z79.899 Other long term (current) drug therapy
CPT/HCPCS: 36415; 80053; 85025

== ENCOUNTER → 2020-10-16 13:34 | Outpatient (CLI) | payer MEDICARE, SELFPAY ==
[2020-02-19 11:10] VITALS: BMI 42.8
--- NOTE | 2020-10-16 13:35 | CT_ITS ---
STUDY: CT ABDOMEN AND PELVIS WITH AND WITHOUT CONTRAST REASON FOR EXAM: Male, 75 years old. GROSS HEMATURIA RADIATION DOSAGE (If Supplied By Facility): CTDIvol = ( 27.43 ) mGy, DLP = ( 3316.54 ) mGycm TECHNIQUE: Transaxial images were obtained from the dome of the diaphragm to the symphysis pubis without oral contrast. IV 100mL Isovue-370 was administered. Sagittal and coronal images were reconstructed. Individualized dose optimization techniques were used for this CT. COMPARISON: None. FINDINGS: There is a 3.9 cm x 3.9 cm heterogeneous enhancing mass in the posterior medial segment of the left lower lobe abutting the pleural surface. A similar appearing heterogeneous enhancing mass measuring 5.8 cm x 3.6 cm is seen in the deep subcutaneous tissues of the posterior left hemithorax abutting the thoracic cage. Metastatic deposits should be ruled out. The visualized portions of the heart are within normal limits. There is decreased attenuation of the liver consistent with steatosis. There are multiple gallstones. Normal spleen. Normal pancreas. Normal bilateral adrenal glands. There is a 5.1 mm calculus in the lower pole calyx of the right kidney. A punctate calculus is also seen in the lower pole calyx of the right kidney. There is a 1.9 cm cyst in the anterior lateral aspect of the right kidney. Multiple nonobstructing calculi are seen in the left kidney. The largest calculus measures 9 mm and is in the lower pole calyx. Normal visualized stomach. Normal small intestine. Normal colon. The appendix is visualized and appears normal. There is scattered atherosclerotic calcification of the abdominal aorta, without a demonstrated aneurysm. Normal inferior vena cava. Normal retroperitoneum. Normal urinary bladder. There is a small umbilical hernia containing fat. There are degenerative changes of the visualized lumbar spine. Degenerative changes involving the sacroiliac joints are seen. The patient is status post bilateral hip replacements. Beam hardening artifacts are seen in the pelvis due to the replacements limiting the assessment of the base of the bladder as well as the prostate gland. CT/CT Abd/Pelvis W/WO Contrast IMPRESSION: Bilateral nonobstructive intrarenal calculi more prominent on the left side. 3.9 cm x 3.9 cm heterogeneous enhancing mass in the posteromedial segment of the left lower lobe abutting the pleural surface. A similar appearing heterogeneous enhancing mass measuring 5.87 x 3.6 cm is seen in the deep subcutaneous tissues of the posterior left hemithorax abutting the thoracic cage. Metastatic deposits should be ruled out. Multiple gallstones. Electronically Signed: Laureano Hill MD at 14:33 EDT , Service support ,
== END ==
PROVIDERS: PCP Family Medicine; Referring Provider Nurse Practitioner Adult Health; Visit Provider Nurse Practitioner Adult Health
DX: K80.20 Calculus of gallbladder without cholecystitis without obstruction (principal); N20.0 Calculus of kidney; R31.0 Gross hematuria
CPT/HCPCS: 74178; Q9967

== ENCOUNTER → 2020-11-04 | Outpatient (CLI) | payer MEDICARE, SELFPAY ==
[2020-02-19 11:10] VITALS: BMI 42.8
== END | disposition home or self-care (01) ==
LOC: LABSPEC 16:23
PROVIDERS: PCP Family Medicine; Referring Provider Urology; Visit Provider Urology
DX: N39.0 Urinary tract infection, site not specified (principal)
CPT/HCPCS: 87086; 87088; 87186

== ENCOUNTER 2020-11-14 07:39 | Day surgery (SDC) | payer MEDICARE, SELFPAY ==
[2020-02-19 11:10] VITALS: BMI 42.8
[2020-11-14] VITALS (9 sets, daily range): BP systolic 125–154; BP diastolic 45–78; PULSE 52–63; RESP 16–18; TEMP 36.3–36.7; O2SAT 93–97; BMI 45.1
[2020-11-14] MEDS: Lactated Ringers 1,000 ML 100 ML IV ×2 (08:17→10:46)
[2020-11-14 09:20] LABS: Bedside Glucose 82 mg/dL (70-110)
--- NOTE | 2020-11-14 09:45 | PROS_PTH ---
PATIENT: ANDRZEJ LAMAS LOC: [facility] – [place] U#:[id number] AGE/SX: 75/M ROOM: RE11/14/[address]: Dr. Nuno Morris MD : 1945 BED: DIS: 11/15/2020 SPEC #: [id number] RECD: 11/14/20 12:43 STATUS: KEVIN THEODORE #: [id number] ONELIA: 11/14/20 09:[address]: Nuno Morris DEPT: SURGICAL PATHOLOGY RECD BY: Jia Hummel ENTERED: 11/14/20 13:52 SP TYPE: TURP OTHR DR: Dr. Suraj Johnson MD Tissues: Prostate, NOS Procedures: Surgery Specimen Level IV HEADER OPERATION: Cysto, TUR prostate, [employer] PRE-OP DIAGNOSIS: BPH with obstruction TISSUE SUBMITTED: Prostate chips MICROSCOPIC DIAGNOSIS Prostate, transurethral resection: Benign nodule hyperplasia, glandular and stromal types. Chronic inflammation. AM:rxoann 11/18/2020 MICROSCOPIC DESCRIPTION Slides are reviewed. GROSS DESCRIPTION Received is one container labeled with the patient's name and designated prostate chips. The specimen consists of multiple irregular fragments of pink-wilburn, rubbery, soft tissue that in aggregate weigh 9.4 gm and measure in aggregate 5 x 4.5 x 1.5 cm. Multiple fragments of wilburn-brown stones are also noted. Almost entire tissue is submitted in eight cassettes. The stones are for gross identification only. / MAYA:roxann 11/14/20 TC:3 CPT: 95017
--- NOTE | 2020-11-14 10:53 | PCM.HP.STD ---
HPI - General HPI Marian LAMAS, is a 75 M who presents for transurethral resection of the prostate he has a very large obstructive prostate with significant urinary symptoms. [facility] Medical History (Updated 11/14/20 @ 10:[address] Nuno Morris MD) Acute kidney injury (11/03/19) Acute respiratory failure with hypoxia (11/03/19) Anemia, chronic disease Atrial fibrillation Atrial fibrillation with RVR (11/03/19) BPH (benign prostatic hyperplasia) Cardiology follow-up encounter CPAP (continuous positive airway pressure) dependence Diabetes Edema of both lower legs Elevated LFTs (11/04/19) Elevated troponin (11/04/19) Encephalopathy acute Essential (primary) hypertension Essential (primary) hypertension Former smoker Gastric reflux GERD (gastroesophageal reflux disease) High cholesterol History of kidney stones Hyperlipidemia Leg swelling Lower extremity ulceration Morbid obesity Neurofibromatosis CHRIST (obstructive sleep apnea) Paroxysmal atrial fibrillation Pre-diabetes Renal insufficiency Rheumatoid arthritis Secondary lymphedema Severe sepsis Shortness of breath on exertion Sleep apnea Suspected COVID-19 virus infection (11/03/19) Tobacco abuse Tobacco abuse counseling Traumatic open wound of right lower leg Wears glasses Wound of left leg Home Medications finasteride 1 mg PO DAILY 02/22/14 [History Last Taken Unknown] folic acid 1 mg PO BID 02/22/14 [History Last Taken Unknown] lutein 20 mg PO DAILY 02/22/14 [History Last Taken Unknown] lyyiakvb-hpl-XH-lycopen-lutein 1 ea PO DAILY 02/22/14 [History Last Taken Unknown] omega-3 fatty acids-fish oil 1 ea PO DAILY 02/22/14 [History Last Taken Unknown] omeprazole 40 mg PO QHS 02/22/14 [History Last Taken 02/28/14 22:00] pregabalin 150 mg PO BID 11/03/19 [History Last Taken Unknown] glipizide 5 mg PO BID #0 11/06/19 [Rx Last Taken Unknown] adalimumab 40 mg/0.8 mL subcutaneous syringe kit 40 mg SC Q2W ml 11/21/19 [History Last Taken 11/06/20] fenofibrate 40 mg tablet 40 mg PO DAILY 11/21/19 [History Last Taken Unknown] metoprolol succinate 25 mg tablet,extended release 24 hr 25 mg PO DAILY #90 tab 11/21/19 [Rx Last Taken Unknown] tamsulosin 0.4 mg capsule 0.4 mg PO DAILY cap 11/21/19 [History Last Taken Unknown] amiodarone 200 mg PO DAILY 11/07/20 [History Last Taken Unknown] apixaban 5 mg PO BID 11/07/20 [History Last Taken Unknown] ezetimibe 5 mg PO DAILY 11/07/20 [History Last Taken Unknown] leucovorin calcium 15 mg PO .QWEEK 11/07/20 [History Last Taken Unknown] lisinopril 40 mg PO DAILY 11/07/20 [History Last Taken Unknown] methotrexate sodium 15 mg PO Q7D 11/07/20 [History Last Taken Unknown] ciprofloxacin HCl [Cipro] 500 mg PO BID #10 tab 11/14/20 [Rx Last Taken Unknown] Allergy/AdvReac Type Severity Reaction Status Date / Time hydrocodone bitartrate Allergy Other Verified 11/14/20 07:42 [From Vicodin] sulfamethoxazole AdvReac Upset Verified 11/14/20 07:42 [From Bactrim] Stomach trimethoprim [From Bactrim] AdvReac Upset Verified 11/14/20 07:42 Stomach Family History Mother Arthritis Surgical History (Updated 11/07/20 @ 09:18 by Yaz Wen) History of cardiac radiofrequency ablation (~08/09/20) History of cardioversion (08/13/20) History of cataract surgery History of hip replacement History of knee replacement History of radiofrequency ablation procedure for cardiac arrhythmia Social History (Updated 02/19/20 @ 12:52 by Carlos Figueroa NP, [employer]) Smoking Status: Former smoker quit date: 02/16/19 pack-years: 30 ROS Constitutional Constitutional: Denies chills, fever(s) or malaise Eyes Eyes: Denies blurry vision or change in vision ENT HEENT: Reports none Cardiovascular Cardiovascular: Denies chest pain or palpitations Respiratory/Chest Respiratory/Chest: Denies cough or shortness of breath with exertion Gastrointestinal Gastrointestinal: Denies abdominal pain, constipation or diarrhea Genitourinary Genitourinary: Reports systems reviewed and no addt'l complaints, except as documented Musculoskeletal Musculoskeletal: Denies back pain, joint stiffness or joint swelling Integumentary Integumentary: Denies dry skin, jaundice, lesions or rash Neurologic Neurologic: Denies confusion, syncope or weakness Psychiatric Psychiatric: Reports none; Denies anxiety or depression Endocrine Endocrinology: Denies excessive sweating, fatigue or flushing Hematologic/Lymphatic Hematologic/Lymphatic: Denies anemia, easy bleeding or easy bruising Vital Signs Vital Signs Vital Signs: 11/14/20 08:13 Temperature 97.5 F L Temperature Source Temporal Pulse Rate 63 Respiratory Rate 16 Respiratory Pattern Normal Blood Pressure 154/78 H Blood Pressure Mean 103 Blood Pressure Source Monitor Blood Pressure Position Semi-Fowlers Blood Pressure Location Left Arm Pulse Ox 94 Oxygen Delivery Method Room Air Weight Weight: 155.2 kg Body Mass Index (BMI) 45.1 Physical Exam Const alert and oriented x3 General Appearance: cooperative HEENT normocephalic, head/scalp atraumatic, EAC's normal and TM's normal bilaterally Eyes PERRL and EOMs intact bilaterally Pupil: sluggish Neck no lymphadenopathy, supple and no JVD General: trachea midline Lymph Lymphatic: no lymphadenopathy noted, lymphedema and lymphadenopathy Resp normal respiratory effort, normal air movement and clear to auscultation bilaterally Cardio regular rate, regular rhythm and peripheral pulses 2+ throughout GI soft to palpation, non-tender and non-distended Extremity normal capillary refill and no clubbing, cyanosis or edema General Extremity: no tenderness to palpation of joints or extremities Skin no rashes or lesions noted General Skin Exam: turgor normal Lesions: no lesions Rashes: no rashes Neuro CN's II-XII intact bilaterally Speech: speech normal Motor Exam: strength 5/5 throughout; Negative for general weakness Psych thought process normal, cooperative and affect normal Appearance: appropriate Lab / Micro Data Labs: Laboratory Results - last 24 hr 11/14/20 08:01 POC Glucose 82 Assessment & Plan Assessment/Plan (1) BPH without obstruction/lower urinary tract symptoms: PLAN: Plan to proceed with transurethral resection of the prostate.
--- NOTE | 2020-11-14 10:54 | PCM.DC ---
Discharge Instructions Diet Discharge Diet: No restrictions Activity Discharge Activity: May not drive while taking narcotic pain medications. (for 3 days.) May shower in (days): 1 Dressing / Incision Call your doctor if your incision/area has: Continuous Slow Oozing, Increased Pain/ Swelling, Increased Redness and Foul Smelling Discharge Call your doctor if you observe: Fever of 101 or Higher, Numbness or Tingling, Shortness of breath, Dizziness, Calf discomfort and Uncontrolled pain Cleanse incision/area with: Keep Dressing Clean & Dry Follow Up Care Please Follow Up With: Nuno Morris MD When: Call [phone] for an appointment Test Results: Test results from this visit will be discussed in further detail at your follow-up appointment, if applicable. Discharge Plan Admission Primary Reason for Your Visit: karo Attending Provider: Nuno Morris Primary Care Provider: Suraj Johnson Discharge Orders/Prescriptions Prescriptions: New ciprofloxacin HCl [Cipro] 500 mg tablet 500 mg PO BID Qty: 10 RF: 0 Continued fenofibrate 40 mg tablet 40 mg PO DAILY RF: 0 tamsulosin 0.4 mg capsule 0.4 mg PO DAILY RF: 0 metoprolol succinate [Toprol XL] 25 mg tablet extended release 24 hr 25 mg PO DAILY Qty: 90 RF: 3 omeprazole 40 MG capsule 40 mg PO QHS RF: 0 folic acid 1 MG tablet 1 mg PO BID RF: 0 finasteride 1 MG tablet 1 mg PO DAILY RF: 0 swunrmjp-hxh-ON-lycopen-lutein 1 EACH tablet 1 ea PO DAILY RF: 0 omega-3 fatty acids-fish oil 1 EACH capsule 1 ea PO DAILY RF: 0 lutein 20 MG tablet 20 mg PO DAILY RF: 0 adalimumab 40 mg/0.8 mL syringe kit 40 mg SC Q2W RF: 0 pregabalin 150 MG capsule 150 mg PO BID RF: 0 glipizide 5 MG tablet 5 mg PO BID Qty: 0 RF: 0 amiodarone 200 mg Tablet 200 mg PO DAILY RF: 0 leucovorin calcium 15 mg Tablet 15 mg PO .QWEEK RF: 0 lisinopril 40 mg Tablet 40 mg PO DAILY RF: 0 ezetimibe 10 mg Tablet 5 mg PO DAILY RF: 0 methotrexate sodium 2.5 MG tablet 15 mg PO Q7D RF: 0 Held apixaban 2.5 mg tablet 5 mg PO BID RF: 0 Hold Instructions: Resume on 11/28/20. Referrals / Follow Up: Suraj Johnson MD [Primary Care Provider] - Nuno Morris MD [STAFF PHYSICIAN] -
--- NOTE | 2020-11-14 11:33 | PCM.OPRPT ---
Report of Operation Date of Procedure: 11/14/20 Pre-Operative Diagnosis: BPH with obstruction Post-Operative Diagnosis: Same Surgery/Procedure Performed:: Transurethral section of prostate Description of Surgical Findings:: In the preoperative setting I discussed with the patient how the surgery would be done with expect afterwards. We discussed how a prostate resection is done and we discussed the risk of the surgery including, bleeding, infection, retrograde ejaculation, changes with ejaculation or intercourse,. We discussed the possibility that the resection of the prostate may not alleviate his urinary symptoms. We discussed the small risk of developing scar tissue along the urethral channel and strictures. We also discussed the chance of the prostate could grow back and he may need further surgery or treatment in the future for prostate problems. Patient was taken back to the operating room, timeout procedure was performed, he was identified and marked and placed on the operating room table. He underwent general anesthesia. He was placed in dorsolithotomy position. Penis and testicles were prepped and draped in usual sterile fashion. Went into the bladder using the visual obturator with a resectoscope. Once inside the bladder identified the right and left ureteral orifice. I then identified the prostate and the anatomy of the prostate. I marked out the area of the sphincter and the verumontanum was identified. I then proceeded with the prostate resection first resected the median lobe. And then resected the right lobe of the prostate. Then to resect the left lobe of the prostate. I then resected the apical tissue of the prostate. Made sure that there was no injury to the sphincter or the verumontanum was still intact. At the end of the resection all the chips were Ellik out of the bladder. I then identified the left and right ureteral orifice and these were confirmed to be in good position and effluxing and not injured. The resectoscope was removed, a 22 Portuguese catheter was placed into the bladder on continuous irrigation. And the urine was fairly light pink color and draining normally. He was taken back to the PACU in good condition. Surgeon: Arturo Type of Anesthesia: General Drains: 22 Portuguese three-way catheter Admit VTE Documentation VTE Present on Admission: No VTE Mechan Device Prophylaxis: SCD's
[2020-11-14 12:00] LABS: Bedside Glucose 87 mg/dL (70-110)
[2020-11-14] MEDS: Acetaminophen 325 MG Tablet PO (13:34)
[2020-11-14 14:20] LABS: Bedside Glucose 81 mg/dL (70-110)
[2020-11-14] MEDS: oxyCODONE 5 MG Tablet PO (16:52)
[2020-11-14] MEDS: Lactated Ringers 1,000 ML 125 ML IV (16:53)
[2020-11-14] MEDS: Ezetimibe 10 MG Tablet 5 MG PO (22:26)
[2020-11-14] MEDS: Pantoprazole Sodium 40 MG Tablet PO (22:27)
[2020-11-14] MEDS: glipiZIDE 5 MG Tablet PO (22:27)
[2020-11-14] MEDS: Pregabalin 75 MG Capsule 150 MG PO (22:27)
[2020-11-14] MEDS: Ciprofloxacin 400 MG/200 ML BAG 200 MG IV (22:27)
[2020-11-14] MEDS: Folic Acid 1 MG Tablet PO (22:27)
[2020-11-14] MEDS: Tamsulosin HCl 0.4 MG Capsule PO (22:27)
[2020-11-15] MEDS: Lactated Ringers 1,000 ML 125 ML IV (01:06)
[2020-11-15] MEDS: oxyCODONE 5 MG Tablet PO (02:03)
[2020-11-15 02:05] VITALS: BP 133/63; PULSE 63; RESP 16; TEMP 36.7; O2SAT 98
[2020-11-15 07:52] VITALS: BP 124/55; PULSE 62; RESP 16; TEMP 36.7; O2SAT 98
[2020-11-15 08:05] VITALS: PULSE 62
[2020-11-15] MEDS: Folic Acid 1 MG Tablet PO ×2 (08:05)
[2020-11-15] MEDS: glipiZIDE 5 MG Tablet PO (08:05)
[2020-11-15] MEDS: Amiodarone 200 MG Tablet PO (08:05)
[2020-11-15] MEDS: Omega-3 Acid Ethyl Esters 1 GM Capsule PO (08:05)
[2020-11-15] MEDS: Metoprolol(XL)Succ 25 MG Tablet PO (08:05)
[2020-11-15] MEDS: Multivitamins,Ther W-Minerals Tablet 1 TABLET PO (08:06)
[2020-11-15] MEDS: Fenofibrate 48 MG Tablet PO (08:07)
[2020-11-15] MEDS: Lisinopril 40 MG Tablet PO (08:09)
[2020-11-15] MEDS: Pregabalin 75 MG Capsule 150 MG PO (08:12)
[2020-11-15] MEDS: Ciprofloxacin 400 MG/200 ML BAG 200 MG IV (10:12)
== END 2020-11-15 13:30 | disposition home or self-care (01) ==
LOC: SDC 07:39 → AC 07:40 → MS3 08:51
PROVIDERS: PCP Family Medicine; Referring Provider Urology; Visit Provider Urology
PROC: (CPT 52601; principal; 2020-11-14 09:35)
DX: N40.1 Benign prostatic hyperplasia with lower urinary tract symptoms (principal); N13.8 Other obstructive and reflux uropathy; R35.0 Frequency of micturition; R35.1 Nocturia; I48.0 Paroxysmal atrial fibrillation; I10 Essential (primary) hypertension; E11.9 Type 2 diabetes mellitus without complications; N17.9 Acute kidney failure, unspecified; E78.00 Pure hypercholesterolemia, unspecified; K21.9 Gastro-esophageal reflux disease without esophagitis; M06.9 Rheumatoid arthritis, unspecified; F17.210 Nicotine dependence, cigarettes, uncomplicated; E66.01 Morbid (severe) obesity due to excess calories; Z68.42 Body mass index [BMI] 45.0-49.9, adult; Z79.84 Long term (current) use of oral hypoglycemic drugs; Z79.01 Long term (current) use of anticoagulants; Z20.822 Contact with and (suspected) exposure to COVID-19; Z79.899 Other long term (current) drug therapy; Z87.442 Personal history of urinary calculi
CPT/HCPCS: 00914; 52601; 82962; 88305; 99406; J7120; J0744; J2405

== ENCOUNTER → 2020-12-29 13:43 | Outpatient (CLI) | payer MEDICARE, SELFPAY ==
[2020-11-14 13:03] VITALS: BMI 45.1
[2020-12-29 16:03] LABS: Absolute Lymphocyte Count 1.06 X10^3/uL (0.83-4.51); Absolute Neutrophil Count 3.5 X10^3/uL (2.0-7.7); Basophil# 0.03 X10^3/uL; Basophil% 0.6 % (0-1); Eosinophil# 0.11 X10^3/uL; Eosinophils% 2.1 % (0-5); Hematocrit 30.7 % (40-54); Hemoglobin 8.6 g/dL (13.0-16.5); Lymphocyte # 1.06 X10^3/ul (0.83-4.51); Lymphocyte % 20.3 % (19-41); Mean Corpuscular Volume 85.5 fL (80-94); Mean Platelet Vol. 10.9 fl (6.2-12.0); Monocyte# 0.44 X10^3/uL; Monocyte% 8.4 % (0-10); NRBC Flagged by Analyzer 0 % (0-5); Neutrophil # 3.54 X10^3/uL (2.7-7.7); Neutrophil % 67.6 % (47-70); POSITIVE MORPHOLOGY YES; Platelet Count 170 K/mm3 (150-450); RBC Distribution Width CV 20.4 % (11.6-14.6); RBC Distribution Width SD 62.8 fl (35.1-43.9); Red Blood Count 3.59 M/mm3 (4.6-6.2); White Blood Count 5.2 K/mm3 (4.4-11.0)
[2020-12-29 16:09] LABS: Differential Indicated SCAN CRITERIA MET
[2020-12-29 16:23] LABS: AST(SGOT) 31 U/L (15-37); Alanine Aminotransfer ALT/SGPT 33 U/L (16-61); Albumin, Serum 3.7 g/dL (3.2-5.0); Alkaline Phosphatase 51 U/L (45-117); Anion Gap 6 (5-15); BUN 15 mg/dL (7-18); BUN/Creat Ratio 13.3 RATIO (10-20); Calcium,Total 8.8 mg/dL (8.5-10.1); Chloride 107 mmol/L (98-107); Creatinine, Serum 1.13 mg/dL (0.70-1.30); EST Glomerular Filtration Rate 67 mL/min (>60); Est Glom Filt Rate - Afr Amer 82 mL/min (>60); Globulin 3.6 g/dL (2.2-4.2); Glucose 128 mg/dL (74-106); Potassium 4.4 mmol/L (3.5-5.1); Protein, Total 7.3 g/dL (6.4-8.2); Sodium Level 137 mmol/L (136-145)
[2020-12-29 16:38] LABS: Anisocytosis 1+; Differential Comment SCANNED
== END ==
PROVIDERS: PCP Family Medicine; Referring Provider Internal Medicine Rheumatology; Visit Provider Internal Medicine Rheumatology
DX: M06.00 Rheumatoid arthritis without rheumatoid factor, unspecified site (principal); Z79.899 Other long term (current) drug therapy; M15.9 Polyosteoarthritis, unspecified; G56.02 Carpal tunnel syndrome, left upper limb; K21.9 Gastro-esophageal reflux disease without esophagitis; I48.0 Paroxysmal atrial fibrillation; M47.892 Other spondylosis, cervical region; M47.897 Other spondylosis, lumbosacral region; I87.2 Venous insufficiency (chronic) (peripheral)
CPT/HCPCS: 36415; 80053; 85025

== ENCOUNTER → 2021-03-18 13:09 | Outpatient (CLI) | payer MEDICARE, SELFPAY ==
[2021-03-18 15:17] LABS: Absolute Lymphocyte Count 0.82 X10^3/uL (0.83-4.51); Absolute Neutrophil Count 2.4 X10^3/uL (2.0-7.7); Basophil# 0.03 X10^3/uL; Basophil% 0.8 % (0-1); Eosinophil# 0.04 X10^3/uL; Eosinophils% 1.1 % (0-5); Hematocrit 40.3 % (40-54); Hemoglobin 12.3 g/dL (13.0-16.5); Lymphocyte # 0.82 X10^3/ul (0.83-4.51); Lymphocyte % 22.3 % (19-41); Mean Corp Hgb Conc 30.5 g/dL (32-36); Mean Corpuscular Hgb 27.7 pg (27.0-32.0); Mean Corpuscular Volume 90.8 fL (80-94); Mean Platelet Vol. 10.7 fl (6.2-12.0); Monocyte# 0.37 X10^3/uL; Monocyte% 10.1 % (0-10); NRBC Flagged by Analyzer 0 % (0-5); Neutrophil # 2.35 X10^3/uL (2.7-7.7); Neutrophil % 64.1 % (47-70); POSITIVE MORPHOLOGY YES; Platelet Count 139 K/mm3 (150-450); RBC Distribution Width CV 21.5 % (11.6-14.6); RBC Distribution Width SD 70.8 fl (35.1-43.9); Red Blood Count 4.44 M/mm3 (4.6-6.2); White Blood Count 3.7 K/mm3 (4.4-11.0)
[2021-03-18 15:24] LABS: Differential Indicated SCAN CRITERIA MET
[2021-03-18 15:39] LABS: ALB/GLOB Ratio 0.8 RATIO (0.9-2.4); AST(SGOT) 23 U/L (15-37); Alanine Aminotransfer ALT/SGPT 36 U/L (16-61); Albumin, Serum 3.4 g/dL (3.2-5.0); Alkaline Phosphatase 61 U/L (45-117); Anion Gap 7 (5-15); BUN 20 mg/dL (7-18); BUN/Creat Ratio 20.4 RATIO (10-20); Calcium,Total 8.6 mg/dL (8.5-10.1); Chloride 105 mmol/L (98-107); Creatinine, Serum 0.98 mg/dL (0.70-1.30); EST Glomerular Filtration Rate 79 mL/min (>60); Est Glom Filt Rate - Afr Amer 96 mL/min (>60); Globulin 4.3 g/dL (2.2-4.2); Glucose 160 mg/dL (74-106); Potassium 4.5 mmol/L (3.5-5.1); Protein, Total 7.7 g/dL (6.4-8.2); Sodium Level 137 mmol/L (136-145)
[2021-03-18 16:06] LABS: Anisocytosis 1+; Differential Comment SCANNED
== END ==
PROVIDERS: PCP Family Medicine; Referring Provider Internal Medicine Rheumatology; Visit Provider Internal Medicine Rheumatology
DX: M06.00 Rheumatoid arthritis without rheumatoid factor, unspecified site (principal); Z79.899 Other long term (current) drug therapy; M15.9 Polyosteoarthritis, unspecified; G56.03 Carpal tunnel syndrome, bilateral upper limbs; K21.9 Gastro-esophageal reflux disease without esophagitis; I48.0 Paroxysmal atrial fibrillation; M47.892 Other spondylosis, cervical region; M47.897 Other spondylosis, lumbosacral region; I87.2 Venous insufficiency (chronic) (peripheral); L40.8 Other psoriasis
CPT/HCPCS: 36415; 80053; 85025

== ENCOUNTER 2021-07-09 13:19 | Outpatient (CLI) | payer MEDICARE, SELFPAY ==
[2021-07-09 15:15] LABS: Absolute Lymphocyte Count 1.76 X10^3/uL (0.83-4.51); Absolute Neutrophil Count 2.9 X10^3/uL (2.0-7.7); Basophil# 0.03 X10^3/uL; Basophil% 0.5 % (0-1); Eosinophil# 0.15 X10^3/uL; Eosinophils% 2.7 % (0-5); Hematocrit 41.5 % (40-54); Hemoglobin 13.7 g/dL (13.0-16.5); Lymphocyte # 1.76 X10^3/ul (0.83-4.51); Lymphocyte % 31.4 % (19-41); Mean Platelet Vol. 11.5 fl (6.2-12.0); Monocyte# 0.73 X10^3/uL; NRBC Flagged by Analyzer 0 % (0-5); Neutrophil # 2.87 X10^3/uL (2.7-7.7); Neutrophil % 51.2 % (47-70); Platelet Count 130 K/mm3 (150-450); RBC Distribution Width CV 15.4 % (11.6-14.6); RBC Distribution Width SD 56.5 fl (35.1-43.9); Red Blood Count 4.15 M/mm3 (4.6-6.2); White Blood Count 5.6 K/mm3 (4.4-11.0)
[2021-07-09 15:58] LABS: ALB/GLOB Ratio 0.9 RATIO (0.9-2.4); AST(SGOT) 24 U/L (15-37); Alanine Aminotransfer ALT/SGPT 41 U/L (16-61); Albumin, Serum 3.6 g/dL (3.2-5.0); Alkaline Phosphatase 54 U/L (45-117); Anion Gap 4 (5-15); BUN 24 mg/dL (7-18); BUN/Creat Ratio 24.5 RATIO (10-20); Calcium,Total 9.3 mg/dL (8.5-10.1); Chloride 105 mmol/L (98-107); Creatinine, Serum 0.98 mg/dL (0.70-1.30); EST Glomerular Filtration Rate 80 mL/min (>60); Est Glom Filt Rate - Afr Amer 96 mL/min (>60); Globulin 3.9 g/dL (2.2-4.2); Glucose 94 mg/dL (74-106); Protein, Total 7.5 g/dL (6.4-8.2); Sodium Level 138 mmol/L (136-145)
== END 2021-07-09 23:59 | disposition short-term general hospital (02) ==
LOC: MTLAB 13:21
PROVIDERS: PCP Family Medicine; Referring Provider Internal Medicine Rheumatology; Visit Provider Internal Medicine Rheumatology
DX: M06.00 Rheumatoid arthritis without rheumatoid factor, unspecified site (principal); I48.0 Paroxysmal atrial fibrillation; M15.9 Polyosteoarthritis, unspecified; K21.9 Gastro-esophageal reflux disease without esophagitis; M47.892 Other spondylosis, cervical region; M47.897 Other spondylosis, lumbosacral region; I87.2 Venous insufficiency (chronic) (peripheral); G56.03 Carpal tunnel syndrome, bilateral upper limbs; L40.8 Other psoriasis; Z79.899 Other long term (current) drug therapy
CPT/HCPCS: 36415; 80053; 85025

== ENCOUNTER → 2021-10-09 | Outpatient (CLI) | payer MEDICARE, SELFPAY ==
[2021-10-09 15:13] LABS: Absolute Lymphocyte Count 1.57 X10^3/uL (0.83-4.51); Absolute Neutrophil Count 2.6 X10^3/uL (2.0-7.7); Basophil# 0.04 X10^3/uL; Basophil% 0.8 % (0-1); Eosinophil# 0.15 X10^3/uL; Eosinophils% 2.8 % (0-5); Hematocrit 40.6 % (40-54); Hemoglobin 13.8 g/dL (13.0-16.5); Lymphocyte # 1.57 X10^3/ul (0.83-4.51); Lymphocyte % 29.6 % (19-41); Mean Corpuscular Hgb 33.2 pg (27.0-32.0); Mean Corpuscular Volume 97.6 fL (80-94); Mean Platelet Vol. 11.1 fl (6.2-12.0); Monocyte# 0.83 X10^3/uL; Monocyte% 15.7 % (0-10); NRBC Flagged by Analyzer 0 % (0-5); Neutrophil # 2.63 X10^3/uL (2.7-7.7); Neutrophil % 49.6 % (47-70); Platelet Count 134 K/mm3 (150-450); RBC Distribution Width CV 12.5 % (11.6-14.6); RBC Distribution Width SD 44.7 fl (35.1-43.9); Red Blood Count 4.16 M/mm3 (4.6-6.2); White Blood Count 5.3 K/mm3 (4.4-11.0)
[2021-10-09 15:38] LABS: AST(SGOT) 27 U/L (15-37); Alanine Aminotransfer ALT/SGPT 36 U/L (16-61); Albumin, Serum 3.5 g/dL (3.2-5.0); Alkaline Phosphatase 57 U/L (45-117); Anion Gap 6 (5-15); BUN 20 mg/dL (7-18); BUN/Creat Ratio 24.6 RATIO (10-20); Calcium,Total 9.4 mg/dL (8.5-10.1); Chloride 107 mmol/L (98-107); Creatinine, Serum 0.81 mg/dL (0.70-1.30); EST Glomerular Filtration Rate 98 mL/min (>60); Est Glom Filt Rate - Afr Amer 119 mL/min (>60); Globulin 3.5 g/dL (2.2-4.2); Glucose 77 mg/dL (74-106); Sodium Level 138 mmol/L (136-145)
== END | disposition home or self-care (01) ==
LOC: MTLAB 13:21
PROVIDERS: PCP Family Medicine; Referring Provider Internal Medicine Rheumatology; Visit Provider Internal Medicine Rheumatology
DX: M06.00 Rheumatoid arthritis without rheumatoid factor, unspecified site (principal); I48.0 Paroxysmal atrial fibrillation; M15.9 Polyosteoarthritis, unspecified; G56.03 Carpal tunnel syndrome, bilateral upper limbs; K21.9 Gastro-esophageal reflux disease without esophagitis; M47.892 Other spondylosis, cervical region; M47.897 Other spondylosis, lumbosacral region; Z79.899 Other long term (current) drug therapy
CPT/HCPCS: 36415; 80053; 85025

== ENCOUNTER → 2021-12-30 | Outpatient (CLI) | payer MEDICARE, SELFPAY ==
[2021-12-30 18:03] LABS: Absolute Lymphocyte Count 1.46 X10^3/uL (0.83-4.51); Absolute Neutrophil Count 1.5 X10^3/uL (2.0-7.7); Basophil# 0.02 X10^3/uL; Basophil% 0.5 % (0-1); Eosinophils% 2.7 % (0-5); Hemoglobin 13.4 g/dL (13.0-16.5); Lymphocyte # 1.46 X10^3/ul (0.83-4.51); Lymphocyte % 40.1 % (19-41); Mean Corp Hgb Conc 33.5 g/dL (32-36); Mean Corpuscular Hgb 33.2 pg (27.0-32.0); Mean Platelet Vol. 11.1 fl (6.2-12.0); Monocyte# 0.57 X10^3/uL; Monocyte% 15.7 % (0-10); NRBC Flagged by Analyzer 0 % (0-5); Neutrophil # 1.46 X10^3/uL (2.7-7.7); Neutrophil % 40.2 % (47-70); Platelet Count 135 K/mm3 (150-450); RBC Distribution Width CV 13.5 % (11.6-14.6); Red Blood Count 4.04 M/mm3 (4.6-6.2); White Blood Count 3.6 K/mm3 (4.4-11.0)
[2021-12-30 18:51] LABS: AST(SGOT) 28 U/L (15-37); Alanine Aminotransfer ALT/SGPT 37 U/L (16-61); Albumin, Serum 3.6 g/dL (3.2-5.0); Alkaline Phosphatase 58 U/L (45-117); Anion Gap 7 (5-15); BUN 19 mg/dL (7-18); BUN/Creat Ratio 21.3 RATIO (10-20); Chloride 109 mmol/L (98-107); Creatinine, Serum 0.89 mg/dL (0.70-1.30); EST Glomerular Filtration Rate 88 mL/min (>60); Est Glom Filt Rate - Afr Amer 107 mL/min (>60); Globulin 3.6 g/dL (2.2-4.2); Glucose 112 mg/dL (74-106); Potassium 3.7 mmol/L (3.5-5.1); Protein, Total 7.2 g/dL (6.4-8.2); Sodium Level 141 mmol/L (136-145)
== END | disposition home or self-care (01) ==
LOC: MTLAB 14:37
PROVIDERS: PCP Family Medicine; Referring Provider Internal Medicine Rheumatology; Visit Provider Internal Medicine Rheumatology
DX: M06.00 Rheumatoid arthritis without rheumatoid factor, unspecified site (principal); I48.0 Paroxysmal atrial fibrillation; M15.9 Polyosteoarthritis, unspecified; G56.03 Carpal tunnel syndrome, bilateral upper limbs; K21.9 Gastro-esophageal reflux disease without esophagitis; M47.892 Other spondylosis, cervical region; M47.897 Other spondylosis, lumbosacral region; I87.2 Venous insufficiency (chronic) (peripheral); L40.8 Other psoriasis; Z79.899 Other long term (current) drug therapy
CPT/HCPCS: 36415; 80053; 85025

== ENCOUNTER → 2022-03-19 | Outpatient (CLI) | payer MEDICARE, SELFPAY ==
[2022-03-19 17:34] LABS: Absolute Lymphocyte Count 1.38 X10^3/uL (0.83-4.51); Absolute Neutrophil Count 1.9 X10^3/uL (2.0-7.7); Basophil# 0.02 X10^3/uL; Basophil% 0.5 % (0-1); Eosinophil# 0.14 X10^3/uL; Eosinophils% 3.5 % (0-5); Hematocrit 43.2 % (40-54); Hemoglobin 14.7 g/dL (13.0-16.5); Lymphocyte # 1.38 X10^3/ul (0.83-4.51); Lymphocyte % 34.4 % (19-41); Mean Corpuscular Hgb 33.3 pg (27.0-32.0); Mean Corpuscular Volume 97.7 fL (80-94); Mean Platelet Vol. 10.6 fl (6.2-12.0); Monocyte# 0.54 X10^3/uL; Monocyte% 13.5 % (0-10); NRBC Flagged by Analyzer 0 % (0-5); Neutrophil % 47.4 % (47-70); Platelet Count 132 K/mm3 (150-450); RBC Distribution Width CV 13.2 % (11.6-14.6); RBC Distribution Width SD 47.3 fl (35.1-43.9); Red Blood Count 4.42 M/mm3 (4.6-6.2)
[2022-03-19 18:01] LABS: ALB/GLOB Ratio 0.9 RATIO (0.9-2.4); AST(SGOT) 33 U/L (15-37); Alanine Aminotransfer ALT/SGPT 39 U/L (16-61); Albumin, Serum 3.5 g/dL (3.2-5.0); Alkaline Phosphatase 62 U/L (45-117); Anion Gap 9 (5-15); BUN 19 mg/dL (7-18); BUN/Creat Ratio 20.4 RATIO (10-20); Calcium,Total 9.2 mg/dL (8.5-10.1); Chloride 105 mmol/L (98-107); Creatinine, Serum 0.93 mg/dL (0.70-1.30); EST Glomerular Filtration Rate 84 mL/min (>60); Est Glom Filt Rate - Afr Amer 102 mL/min (>60); Globulin 3.8 g/dL (2.2-4.2); Glucose 140 mg/dL (74-106); Potassium 4.1 mmol/L (3.5-5.1); Protein, Total 7.3 g/dL (6.4-8.2); Sodium Level 139 mmol/L (136-145)
== END | disposition home or self-care (01) ==
LOC: MTLAB 14:51
PROVIDERS: PCP Family Medicine; Referring Provider Internal Medicine Rheumatology; Visit Provider Internal Medicine Rheumatology
DX: M06.00 Rheumatoid arthritis without rheumatoid factor, unspecified site (principal); I48.0 Paroxysmal atrial fibrillation; M15.9 Polyosteoarthritis, unspecified; G56.03 Carpal tunnel syndrome, bilateral upper limbs; K21.9 Gastro-esophageal reflux disease without esophagitis; M47.897 Other spondylosis, lumbosacral region; M47.892 Other spondylosis, cervical region; I87.2 Venous insufficiency (chronic) (peripheral); L40.8 Other psoriasis; Z79.899 Other long term (current) drug therapy
CPT/HCPCS: 36415; 80053; 85025

== ENCOUNTER → 2022-04-12 | Outpatient (CLI) | payer MEDICARE, SELFPAY ==
--- NOTE | 2022-04-12 16:57 | RAD_ITS ---
EXAM: XR THORACIC SPINE, 2 VIEWS CLINICAL INDICATION: PAIN TECHNIQUE: Frontal and lateral views of the thoracic spine. This report was created using [employer] report generation technology. COMPARISON: None. FINDINGS: VERTEBRAE: There is endplate spondylosis of the vertebral body. Loss of intervertebral disc height. Preserved vertebral body height. No fracture. Preservation of the normal thoracic kyphosis. No significant facet arthropathy. DISC SPACES: Unremarkable. Disc spaces are maintained. RAD/Thoracic Spine 2 Views IMPRESSION: No acute findings in the thoracic spine. Electronically Signed: Medhat Tolliver MD at 17:15 EDT ,
--- NOTE | 2022-04-12 17:00 | RAD_ITS ---
EXAM: XR CERVICAL SPINE, 2 OR 3 VIEWS CLINICAL INDICATION: PAIN TECHNIQUE: Frontal and lateral views of the cervical spine. This report was created using [employer] report generation technology. COMPARISON: None. FINDINGS: VERTEBRAE: Unremarkable. Preserved vertebral body height. No acute fracture. No spondylolisthesis. Preservation of the normal cervical lordosis. No significant facet arthropathy. DISC SPACES: Unremarkable. Disc spaces are maintained. SOFT TISSUES: Unremarkable. No prevertebral soft tissue widening. LUNG APICES: Clear. RAD/Cerv Spine 2 or 3 Views IMPRESSION: No evidence of acute fracture or spondylolisthesis. Electronically Signed: Medhat Tolliver MD at 17:14 EDT ,
== END | disposition home or self-care (01) ==
LOC: RAD 16:55
PROVIDERS: PCP Family Medicine; Referring Provider Anesthesiology Pain Medicine; Visit Provider Anesthesiology Pain Medicine
DX: M50.30 Other cervical disc degeneration, unspecified cervical region (principal); M51.34 Other intervertebral disc degeneration, thoracic region
CPT/HCPCS: 72040; 72070

== ENCOUNTER → 2022-06-08 | Outpatient (CLI) | payer MEDICARE, SELFPAY ==
[2022-06-08 17:54] LABS: Absolute Lymphocyte Count 1.76 X10^3/uL (0.83-4.51); Absolute Neutrophil Count 3.1 X10^3/uL (2.0-7.7); Basophil# 0.02 X10^3/uL; Basophil% 0.3 % (0-1); Eosinophil# 0.12 X10^3/uL; Eosinophils% 2.1 % (0-5); Hematocrit 41.5 % (40-54); Hemoglobin 13.7 g/dL (13.0-16.5); Lymphocyte # 1.76 X10^3/ul (0.83-4.51); Lymphocyte % 30.7 % (19-41); Mean Corpuscular Hgb 32.4 pg (27.0-32.0); Mean Corpuscular Volume 98.1 fL (80-94); Mean Platelet Vol. 11.2 fl (6.2-12.0); Monocyte# 0.69 X10^3/uL; NRBC Flagged by Analyzer 0 % (0-5); Neutrophil # 3.12 X10^3/uL (2.7-7.7); Neutrophil % 54.6 % (47-70); Platelet Count 121 K/mm3 (150-450); RBC Distribution Width CV 13.7 % (11.6-14.6); RBC Distribution Width SD 49.3 fl (35.1-43.9); Red Blood Count 4.23 M/mm3 (4.6-6.2); White Blood Count 5.7 K/mm3 (4.4-11.0)
[2022-06-08 18:37] LABS: ALB/GLOB Ratio 1.2 RATIO (0.9-2.4); AST(SGOT) 24 U/L (15-37); Alanine Aminotransfer ALT/SGPT 35 U/L (16-61); Albumin, Serum 3.7 g/dL (3.2-5.0); Alkaline Phosphatase 52 U/L (45-117); Anion Gap 6 (5-15); BUN 21 mg/dL (7-18); BUN/Creat Ratio 23.9 RATIO (10-20); Calcium,Total 8.7 mg/dL (8.5-10.1); Chloride 107 mmol/L (98-107); Creatinine, Serum 0.88 mg/dL (0.70-1.30); EST Glomerular Filtration Rate 90 mL/min (>60); Est Glom Filt Rate - Afr Amer 109 mL/min (>60); Glucose 95 mg/dL (74-106); Potassium 3.9 mmol/L (3.5-5.1); Protein, Total 6.7 g/dL (6.4-8.2); Sodium Level 140 mmol/L (136-145)
== END | disposition home or self-care (01) ==
LOC: MTLAB 16:21
PROVIDERS: PCP Family Medicine; Referring Provider Internal Medicine Rheumatology; Visit Provider Internal Medicine Rheumatology
DX: M06.00 Rheumatoid arthritis without rheumatoid factor, unspecified site (principal); I48.0 Paroxysmal atrial fibrillation; M15.9 Polyosteoarthritis, unspecified; G56.03 Carpal tunnel syndrome, bilateral upper limbs; K21.9 Gastro-esophageal reflux disease without esophagitis; M47.892 Other spondylosis, cervical region; M47.897 Other spondylosis, lumbosacral region; I87.2 Venous insufficiency (chronic) (peripheral); L40.8 Other psoriasis; Z79.899 Other long term (current) drug therapy
CPT/HCPCS: 36415; 80053; 85025

== ENCOUNTER → 2022-08-23 | Outpatient (CLI) | payer MEDICARE, SELFPAY ==
[2022-08-23 15:08] LABS: Absolute Lymphocyte Count 1.42 X10^3/uL (0.83-4.51); Absolute Neutrophil Count 2.2 X10^3/uL (2.0-7.7); Basophil# 0.02 X10^3/uL; Basophil% 0.5 % (0-1); Eosinophil# 0.08 X10^3/uL; Eosinophils% 1.8 % (0-5); Hematocrit 42.4 % (40-54); Hemoglobin 14.1 g/dL (13.0-16.5); Lymphocyte # 1.42 X10^3/ul (0.83-4.51); Lymphocyte % 32.8 % (19-41); Mean Corp Hgb Conc 33.3 g/dL (32-36); Mean Corpuscular Hgb 32.9 pg (27.0-32.0); Mean Corpuscular Volume 99.1 fL (80-94); Mean Platelet Vol. 11.1 fl (6.2-12.0); Monocyte# 0.58 X10^3/uL; Monocyte% 13.4 % (0-10); NRBC Flagged by Analyzer 0 % (0-5); Neutrophil # 2.21 X10^3/uL (2.7-7.7); Platelet Count 127 K/mm3 (150-450); RBC Distribution Width CV 13.2 % (11.6-14.6); RBC Distribution Width SD 47.8 fl (35.1-43.9); Red Blood Count 4.28 M/mm3 (4.6-6.2); White Blood Count 4.3 K/mm3 (4.4-11.0)
[2022-08-23 15:34] LABS: ALB/GLOB Ratio 0.9 RATIO (0.9-2.4); AST(SGOT) 30 U/L (15-37); Alanine Aminotransfer ALT/SGPT 36 U/L (16-61); Albumin, Serum 3.4 g/dL (3.2-5.0); Alkaline Phosphatase 53 U/L (45-117); Anion Gap 6 (5-15); BUN 19 mg/dL (7-18); BUN/Creat Ratio 21.2 RATIO (10-20); Calcium,Total 9.1 mg/dL (8.5-10.1); Chloride 105 mmol/L (98-107); EST Glomerular Filtration Rate 88 mL/min (>60); Est Glom Filt Rate - Afr Amer 106 mL/min (>60); Globulin 3.6 g/dL (2.2-4.2); Glucose 85 mg/dL (74-106); Sodium Level 140 mmol/L (136-145)
== END | disposition home or self-care (01) ==
PROVIDERS: PCP Family Medicine; Visit Provider Internal Medicine Rheumatology
DX: M06.00 Rheumatoid arthritis without rheumatoid factor, unspecified site (principal); I48.0 Paroxysmal atrial fibrillation; Z79.899 Other long term (current) drug therapy; M15.9 Polyosteoarthritis, unspecified; G56.01 Carpal tunnel syndrome, right upper limb; G56.02 Carpal tunnel syndrome, left upper limb; K21.9 Gastro-esophageal reflux disease without esophagitis; M47.892 Other spondylosis, cervical region; M47.897 Other spondylosis, lumbosacral region; I87.2 Venous insufficiency (chronic) (peripheral); L40.8 Other psoriasis
CPT/HCPCS: 36415; 80053; 85025

== ENCOUNTER → 2022-11-29 | Outpatient (CLI) | payer MEDICARE, SELFPAY ==
[2022-11-29 15:27] LABS: Absolute Lymphocyte Count 1.03 X10^3/uL (0.83-4.51); Absolute Neutrophil Count 3.9 X10^3/uL (2.0-7.7); Basophil# 0.03 X10^3/uL; Basophil% 0.5 % (0-1); Eosinophil# 0.05 X10^3/uL; Eosinophils% 0.9 % (0-5); Hematocrit 47.8 % (40-54); Hemoglobin 15.4 g/dL (13.0-16.5); Lymphocyte # 1.03 X10^3/ul (0.83-4.51); Lymphocyte % 18.4 % (19-41); Mean Corp Hgb Conc 32.2 g/dL (32-36); Mean Corpuscular Hgb 32.9 pg (27.0-32.0); Mean Corpuscular Volume 102.1 fL (80-94); Mean Platelet Vol. 11.4 fl (6.2-12.0); Monocyte# 0.49 X10^3/uL; Monocyte% 8.7 % (0-10); NRBC Flagged by Analyzer 0 % (0-5); Neutrophil # 3.94 X10^3/uL (2.7-7.7); Neutrophil % 70.3 % (47-70); Platelet Count 117 K/mm3 (150-450); RBC Distribution Width CV 14.3 % (11.6-14.6); RBC Distribution Width SD 54.2 fl (35.1-43.9); Red Blood Count 4.68 M/mm3 (4.6-6.2); White Blood Count 5.6 K/mm3 (4.4-11.0)
[2022-11-29 16:07] LABS: ALB/GLOB Ratio 0.9 RATIO (0.9-2.4); AST(SGOT) 35 U/L (15-37); Alanine Aminotransfer ALT/SGPT 36 U/L (16-61); Albumin, Serum 3.3 g/dL (3.2-5.0); Alkaline Phosphatase 56 U/L (45-117); Anion Gap 7 (5-15); BUN 29 mg/dL (7-18); BUN/Creat Ratio 31.2 RATIO (10-20); Calcium,Total 8.7 mg/dL (8.5-10.1); Chloride 110 mmol/L (98-107); Creatinine, Serum 0.93 mg/dL (0.70-1.30); EST Glomerular Filtration Rate 84 mL/min (>60); Est Glom Filt Rate - Afr Amer 102 mL/min (>60); Globulin 3.7 g/dL (2.2-4.2); Glucose 136 mg/dL (74-106); Potassium 4.7 mmol/L (3.5-5.1); Sodium Level 139 mmol/L (136-145)
== END | disposition home or self-care (01) ==
LOC: MTLAB 13:53
PROVIDERS: PCP Family Medicine; Referring Provider Internal Medicine Rheumatology; Visit Provider Internal Medicine Rheumatology
DX: M06.00 Rheumatoid arthritis without rheumatoid factor, unspecified site (principal); M15.9 Polyosteoarthritis, unspecified; Z79.899 Other long term (current) drug therapy
CPT/HCPCS: 36415; 80053; 85025

== ENCOUNTER → 2023-02-16 | Outpatient (CLI) | payer MEDICARE, SELFPAY ==
[2023-02-16 17:46] LABS: Absolute Lymphocyte Count 1.57 X10^3/uL (0.83-4.51); Absolute Neutrophil Count 2.4 X10^3/uL (2.0-7.7); Basophil# 0.02 X10^3/uL; Basophil% 0.4 % (0-1); Eosinophils% 2.1 % (0-5); Hematocrit 39.8 % (40-54); Hemoglobin 12.7 g/dL (13.0-16.5); Lymphocyte # 1.57 X10^3/ul (0.83-4.51); Lymphocyte % 32.2 % (19-41); Mean Corp Hgb Conc 31.9 g/dL (32-36); Mean Corpuscular Hgb 30.4 pg (27.0-32.0); Mean Corpuscular Volume 95.2 fL (80-94); Mean Platelet Vol. 10.8 fl (6.2-12.0); Monocyte# 0.71 X10^3/uL; Monocyte% 14.6 % (0-10); NRBC Flagged by Analyzer 0 % (0-5); Neutrophil # 2.43 X10^3/uL (2.7-7.7); Neutrophil % 49.9 % (47-70); Platelet Count 154 K/mm3 (150-450); RBC Distribution Width SD 48.2 fl (35.1-43.9); Red Blood Count 4.18 M/mm3 (4.6-6.2); White Blood Count 4.9 K/mm3 (4.4-11.0)
[2023-02-16 18:30] LABS: AST(SGOT) 20 U/L (15-37); Alanine Aminotransfer ALT/SGPT 30 U/L (16-61); Albumin, Serum 3.5 g/dL (3.2-5.0); Alkaline Phosphatase 66 U/L (45-117); Anion Gap 6 (5-15); BUN 19 mg/dL (7-18); BUN/Creat Ratio 20.7 RATIO (10-20); Calcium,Total 8.9 mg/dL (8.5-10.1); Chloride 107 mmol/L (98-107); Creatinine, Serum 0.92 mg/dL (0.70-1.30); EST Glomerular Filtration Rate 85 mL/min (>60); Est Glom Filt Rate - Afr Amer 103 mL/min (>60); Globulin 3.6 g/dL (2.2-4.2); Glucose 118 mg/dL (74-106); Protein, Total 7.1 g/dL (6.4-8.2); Sodium Level 137 mmol/L (136-145)
== END | disposition home or self-care (01) ==
PROVIDERS: PCP Family Medicine; Referring Provider Internal Medicine Rheumatology; Visit Provider Internal Medicine Rheumatology
DX: M06.00 Rheumatoid arthritis without rheumatoid factor, unspecified site (principal); M15.9 Polyosteoarthritis, unspecified; Z79.899 Other long term (current) drug therapy
CPT/HCPCS: 36415; 80053; 85025

== ENCOUNTER → 2023-05-23 | Outpatient (CLI) | payer MEDICARE, SELFPAY ==
[2023-05-23 15:48] LABS: Absolute Lymphocyte Count 2.18 X10^3/uL (0.83-4.51); Absolute Neutrophil Count 2.2 X10^3/uL (2.0-7.7); Basophil# 0.03 X10^3/uL; Basophil% 0.6 % (0-1); Eosinophils% 1.9 % (0-5); Hematocrit 41.2 % (40-54); Hemoglobin 12.3 g/dL (13.0-16.5); Lymphocyte # 2.18 X10^3/ul (0.83-4.51); Lymphocyte % 41.3 % (19-41); Mean Corp Hgb Conc 29.9 g/dL (32-36); Mean Corpuscular Hgb 26.7 pg (27.0-32.0); Mean Corpuscular Volume 89.6 fL (80-94); Mean Platelet Vol. 10.5 fl (6.2-12.0); Monocyte# 0.76 X10^3/uL; Monocyte% 14.4 % (0-10); NRBC Flagged by Analyzer 0 % (0-5); Neutrophil # 2.18 X10^3/uL (2.7-7.7); Neutrophil % 41.2 % (47-70); Platelet Count 156 K/mm3 (150-450); RBC Distribution Width SD 54.5 fl (35.1-43.9); White Blood Count 5.3 K/mm3 (4.4-11.0)
[2023-05-23 16:08] LABS: ALB/GLOB Ratio 0.9 RATIO (0.9-2.4); AST(SGOT) 24 U/L (15-37); Alanine Aminotransfer ALT/SGPT 29 U/L (16-61); Albumin, Serum 3.5 g/dL (3.2-5.0); Alkaline Phosphatase 53 U/L (45-117); Anion Gap 6 (5-15); BUN 19 mg/dL (7-18); Calcium,Total 8.9 mg/dL (8.5-10.1); Chloride 108 mmol/L (98-107); Creatinine, Serum 0.95 mg/dL (0.70-1.30); EST Glomerular Filtration Rate 82 mL/min (>60); Est Glom Filt Rate - Afr Amer 99 mL/min (>60); Globulin 3.8 g/dL (2.2-4.2); Glucose 80 mg/dL (74-106); Potassium 3.7 mmol/L (3.5-5.1); Protein, Total 7.3 g/dL (6.4-8.2); Sodium Level 141 mmol/L (136-145)
== END | disposition home or self-care (01) ==
LOC: MTLAB 13:21
PROVIDERS: PCP Family Medicine; Referring Provider Internal Medicine Rheumatology; Visit Provider Internal Medicine Rheumatology
DX: M06.00 Rheumatoid arthritis without rheumatoid factor, unspecified site (principal); M15.9 Polyosteoarthritis, unspecified; Z79.899 Other long term (current) drug therapy
CPT/HCPCS: 36415; 80053; 85025

== ENCOUNTER → 2023-06-27 | Outpatient (CLI) | payer MEDICARE, SELFPAY ==
--- NOTE | 2023-06-27 12:45 | CT_ITS ---
INDICATION: GROSS HEMATURIA EXAMINATION: CT ABDOMEN AND PELVIS WITHOUT CONTRAST - CT Abdomen And Pelvis W/O Contrast Injection TECHNIQUE: Helically acquired images were obtained of the abdomen and pelvis without oral or IV contrast. A radiation dose optimization technique was used for this scan. IV Contrast dosage and agent: None. Oral contrast: None. RADIATION DOSAGE (If Supplied By Facility): CTDIvol = ( 23.41 ) mGy, DLP = ( 1316.15 ) mGycm COMPARISON: Prior study dated: 10/16/2020 FINDINGS: LOWER CHEST: Essentially stable in appearance well-defined 4.6 x 3.8 cm in the medial aspect of the left lower chest in the left paraspinal region. Well-defined 6 x 4 cm mass in the left lateral chest wall again unchanged. No cardiomegaly or pericardial effusion. LIVER: Homogeneous. No focal mass is seen without contrast. GALLBLADDER AND BILIARY TREE: Status post cholecystectomy. No intra- or extrahepatic biliary ductal dilation. PANCREAS: No focal cystic or solid mass. SPLEEN: Calcified granuloma in the spleen ADRENAL GLANDS: No nodules. KIDNEYS AND URETERS: Stable 3 cm simple cyst in the right kidney and 2.5 cm cyst in the left kidney for which no further follow-up exam is needed. Bilateral nonobstructing renal stones, the largest in the right kidney measures about 7 mm and the largest in the left kidney measures about 2 cm. No evidence of ureteral stones over the pelvic region is obscured by artifacts from bilateral hip arthroplasty. No evidence of hydronephrosis. PERITONEUM: No ascites or free air. No other fluid collection. BOWEL: No evidence of acute appendicitis. No stomach or bowel distension. Fecal retention. No evidence of acute diverticulitis. LYMPH NODES: No enlarged mesenteric or retroperitoneal lymph nodes. VESSELS: Aorta is non-dilated. URINARY BLADDER: Unremarkable. REPRODUCTIVE ORGANS: No pelvic masses. ABDOMINAL WALL: Small umbilical hernia containing fat. BONES: No lytic or blastic abnormality. CT/Abdomen/Pelvis without Cont IMPRESSION: 1. Multiple bilateral nonobstructing renal stones more and larger in the left kidney. No evidence of hydronephrosis. 2. Stable left lower paraspinal and left lateral chest wall masses essentially unchanged since the prior examination. 3. Status post cholecystectomy. 4. Otherwise no focal acute inflammatory process. Electronically Signed: Eyad De Leon MD at 13:18 EST ,
== END | disposition home or self-care (01) ==
LOC: CT 12:43
PROVIDERS: PCP Family Medicine; Referring Provider Urology; Visit Provider Urology
DX: N20.0 Calculus of kidney (principal)
CPT/HCPCS: 74176

== ENCOUNTER → 2023-08-15 | Outpatient (CLI) | payer MEDICARE, SELFPAY ==
[2023-08-15 15:35] LABS: Absolute Lymphocyte Count 1.33 X10^3/uL (0.83-4.51); Absolute Neutrophil Count 2.2 X10^3/uL (2.0-7.7); Basophil# 0.03 X10^3/uL; Basophil% 0.6 % (0-1); Eosinophil# 0.18 X10^3/uL; Eosinophils% 3.9 % (0-5); Hematocrit 27.3 % (40-54); Hemoglobin 8.2 g/dL (13.0-16.5); Lymphocyte # 1.33 X10^3/ul (0.83-4.51); Lymphocyte % 28.5 % (19-41); Mean Corpuscular Hgb 26.7 pg (27.0-32.0); Mean Corpuscular Volume 88.9 fL (80-94); Mean Platelet Vol. 10.8 fl (6.2-12.0); Monocyte# 0.87 X10^3/uL; Monocyte% 18.6 % (0-10); NRBC Flagged by Analyzer 0 % (0-5); Neutrophil # 2.24 X10^3/uL (2.7-7.7); Platelet Count 148 K/mm3 (150-450); RBC Distribution Width CV 18.4 % (11.6-14.6); Red Blood Count 3.07 M/mm3 (4.6-6.2); White Blood Count 4.7 K/mm3 (4.4-11.0)
[2023-08-15 16:30] LABS: AST(SGOT) 21 U/L (15-37); Alanine Aminotransfer ALT/SGPT 20 U/L (16-61); Albumin, Serum 3.2 g/dL (3.2-5.0); Alkaline Phosphatase 47 U/L (45-117); Anion Gap 6 (5-15); BUN 18 mg/dL (7-18); BUN/Creat Ratio 21.4 RATIO (10-20); Calcium,Total 8.7 mg/dL (8.5-10.1); Chloride 111 mmol/L (98-107); Creatinine, Serum 0.84 mg/dL (0.70-1.30); EST Glomerular Filtration Rate 94 mL/min (>60); Est Glom Filt Rate - Afr Amer 114 mL/min (>60); Globulin 3.2 g/dL (2.2-4.2); Glucose 94 mg/dL (74-106); Potassium 3.9 mmol/L (3.5-5.1); Protein, Total 6.4 g/dL (6.4-8.2); Sodium Level 141 mmol/L (136-145)
== END | disposition home or self-care (01) ==
LOC: MTLAB 13:53
PROVIDERS: PCP Family Medicine; Referring Provider Internal Medicine Rheumatology; Visit Provider Internal Medicine Rheumatology
DX: M06.00 Rheumatoid arthritis without rheumatoid factor, unspecified site (principal); M15.9 Polyosteoarthritis, unspecified; Z79.899 Other long term (current) drug therapy
CPT/HCPCS: 36415; 80053; 85025

== ENCOUNTER → 2023-10-20 | Outpatient (CLI) | payer MEDICARE, SELFPAY ==
--- NOTE | 2023-10-20 18:54 | CT_ITS ---
STUDY: CT ABDOMEN AND PELVIS WITHOUT CONTRAST REASON FOR EXAM: Male, 78 years old. HEMATURIA RADIATION DOSAGE (If Supplied By Facility): CTDIvol = ( 23.40 ) mGy, DLP = ( 1239.63 ) mGycm TECHNIQUE: Transaxial images were obtained from the dome of the diaphragm to the symphysis pubis without oral contrast, and without intravenous contrast. Sagittal and coronal images were reconstructed. Individualized dose optimization techniques were used for this CT. COMPARISON: 06/27/2023 FINDINGS: The visualized lung bases are unremarkable. The visualized portions of the heart are within normal limits. 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 Also no change in the similar 6 cm oval mass more laterally on the same level at a different interspace. Normal liver. There are surgical clips in the gallbladder fossa consistent with a prior cholecystectomy. Normal spleen. Normal pancreas. Normal bilateral adrenal glands. Multiple bilateral renal stones including a 5 mm stone in the right renal pelvis. No hydronephrosis, ureteral stone, ureteral dilatation. Normal visualized stomach. Normal small intestine. There are multiple colonic diverticula consistent with diverticulosis. The appendix is visualized and appears normal. Normal abdominal aorta. Normal inferior vena cava. Normal retroperitoneum. Normal urinary bladder. There are prostatic calcifications. There is a small umbilical hernia containing fat. Status post bilateral hip arthroplasty which produces streak artifact and obscures the pelvis. Mild levoscoliosis lumbar spine. CT/Abdomen/Pelvis without Cont IMPRESSION: Bilateral nonobstructing renal stones. Electronically Signed: Lopez Sheppard MD at 0:05 EDT ,
== END | disposition home or self-care (01) ==
PROVIDERS: PCP Family Medicine; Referring Provider Urology; Visit Provider Urology
DX: N40.1 Benign prostatic hyperplasia with lower urinary tract symptoms (principal); N20.0 Calculus of kidney; R31.0 Gross hematuria
CPT/HCPCS: 74176

== ENCOUNTER 2023-11-09 07:42 | Day surgery (SDC) | payer MEDICARE, SELFPAY ==
[2023-11-09] VITALS (12 sets, daily range): BP systolic 113–161; BP diastolic 56–118; PULSE 55–63; RESP 16; TEMP 35.7–36.4; O2SAT 91–100; BMI 41.6
[2023-11-09] MEDS: Lactated Ringers 1,000 ML 15 ML IV (08:27)
[2023-11-09 08:50] LABS: Bedside Glucose 117 mg/dL (74-106)
[2023-11-09] MEDS: Lubricating Jelly 60 GM Tube 30 GM (09:31)
--- NOTE | 2023-11-09 09:33 | HP.PCM_ITS ---
HPI - General General Date of Service: 11/09/23 Chief Complaint: Bilateral renal calculi HPI Narrative ANDRZEJ LAMAS, is a 78 M who presents for laser of bilateral renal calculi in the right side and the left side been causing him pain off-and-on on also gross hematuria. He understands he might need stents bilaterally and we plan to laser the stones on both sides. [facility] Medical History (Updated 11/03/23 @ 11:58 by Steph Cantu) Wears hearing aid Easy bruising Bruising Ambulates with cane Prostate disease History of renal disease Bladder disease Low iron History of hiatal hernia History of echocardiogram History of atrial fibrillation History of lipoma Wears glasses Diabetes High cholesterol Gastric reflux Former smoker CPAP (continuous positive airway pressure) dependence Sleep apnea Shortness of breath on exertion Cardiology follow-up encounter Neurofibromatosis Lower extremity ulceration Essential (primary) hypertension CHRIST (obstructive sleep apnea) Secondary lymphedema Traumatic open wound of right lower leg Atrial fibrillation Wound of left leg Edema of both lower legs Leg swelling History of kidney stones Hyperlipidemia Tobacco abuse counseling Tobacco abuse Pre-diabetes Renal insufficiency Anemia, chronic disease Elevated troponin (11/04/19) Elevated LFTs (11/04/19) Acute kidney injury (11/03/19) Paroxysmal atrial fibrillation Essential (primary) hypertension GERD (gastroesophageal reflux disease) BPH (benign prostatic hyperplasia) Rheumatoid arthritis Morbid obesity Atrial fibrillation with RVR (11/03/19) Encephalopathy acute Severe sepsis Acute respiratory failure with hypoxia (11/03/19) Suspected COVID-19 virus infection (11/03/19) Home Medications ?Medication ?Instructions ?Recorded ?Last Taken ?Type folic acid 1 mg tablet 1 mg PO BID vitamin 02/22/14 11/09/23 06:45 History lutein 20 mg tablet 20 mg PO DAILY other 02/22/14 11/13/20 09:00 History njrmhibc-yqc-ontsa acid 0.4 1 ea PO DAILY multivitamin 02/22/14 11/09/23 06:45 History mg-lycopene 300 mcg-lutein 250 mcg tablet omega-3 fatty acids-fish oil 300 1 ea PO DAILY supplement 02/22/14 11/09/23 06:45 History mg-1,000 mg capsule omeprazole 40 mg capsule,delayed 40 mg PO QHS GERD 02/22/14 11/08/23 History release pregabalin 150 mg capsule 150 mg PO BID pain 11/03/19 11/13/20 23:00 History glipizide 5 mg tablet 5 mg PO BID diabetes ##0 11/06/19 11/09/23 06:45 Rx adalimumab 40 mg/0.8 mL 40 mg subcut Q2W RA 11/21/19 10/21/23 History subcutaneous syringe kit apixaban 2.5 mg tablet 5 mg PO BID blood thinner 11/07/20 11/05/23 History ezetimibe 10 mg tablet 5 mg PO DAILY 11/07/20 11/13/20 17:30 History leucovorin calcium 15 mg tablet 15 mg PO .QWEEK 11/07/20 11/09/20 09:00 History lisinopril 40 mg tablet 40 mg PO DAILY 11/07/20 11/09/23 06:45 History methotrexate sodium 2.5 mg tablet 15 mg PO Q7D RA 11/07/20 11/08/20 09:00 History cyclobenzaprine 10 mg tablet 10 mg PO BID PRN spasms 04/09/22 Unknown History fenofibrate 40 mg tablet 145 mg PO DAILY 04/09/22 Unknown History rosuvastatin 10 mg tablet 10 mg PO DAILY 04/09/22 Unknown History sotalol 120 mg tablet 120 mg PO BID 04/09/22 11/09/23 06:45 History amoxicillin 875 mg-potassium 1 tab PO BID 11/03/23 Unknown History clavulanate 125 mg tablet prednisone 10 mg tablet 10 mg PO DAILY PRN ARTHRITIS 11/03/23 Unknown History tramadol 50 mg tablet 50 mg PO TID PRN PRN pain 11/03/23 Unknown History ciprofloxacin HCl 500 mg tablet 500 mg PO BID #10 tabs 11/09/23 Unknown Rx (Cipro) ibuprofen 600 mg tablet 600 mg PO Q6H PRN fever or pain 11/09/23 Unknown Rx #20 tabs phenazopyridine 100 mg tablet 100 mg PO TID PRN pain #20 tabs 11/09/23 Unknown Rx (Pyridium) tamsulosin 0.4 mg capsule (Flomax) 0.4 mg PO QHS #10 caps 11/09/23 Unknown Rx Allergy/AdvReac Type Severity Reaction Status Date / Time hydrocodone bitartrate (From Allergy Other Verified 11/09/23 08:21 Vicodin) sulfamethoxazole (From AdvReac Upset Verified 11/09/23 08:21 Bactrim) Stomach trimethoprim (From Bactrim) AdvReac Upset Verified 11/09/23 08:21 Stomach Family History Mother Arthritis Surgical History (Updated 11/03/23 @ 11:44 by Steph Cantu) History of transurethral resection of prostate History of cardiac radiofrequency ablation (~08/09/20) History of cardioversion (08/13/20) History of cataract surgery History of knee replacement History of hip replacement History of radiofrequency ablation procedure for cardiac arrhythmia Social History (Updated 04/09/22 @ 14:30 by Yasmine Thomas) Smoking Status: Former smoker alcohol intake: never substance use type: does not use Vital Signs Vital Signs Vital Signs: 11/09/23 08:10 11/09/23 08:10 Temperature 97.5 F L Temperature Source Temporal Pulse Rate 57 L Respiratory Rate 16 Respiratory Pattern Normal Blood Pressure 145/70 H Blood Pressure Mean 95 Blood Pressure Source Monitor Blood Pressure Position Sitting Blood Pressure Location Left Forearm Pulse Ox 97 Oxygen Delivery Method Room Air Weight Weight: 143.335 kg Body Mass Index (BMI) 41.6 Results Lab / Micro Data Labs: Laboratory Results - last 24 hr 11/09/23 08:20: POC Glucose 117 H
--- NOTE | 2023-11-09 09:34 | PCM.DC ---
Discharge Instructions Diet Discharge Diet: No restrictions Activity Discharge Activity: Return to Normal Activity and May Not Drive (while taking narcotic pain medications.) Dressing / Incision Call your doctor if you observe: Fever of 101 or Higher Follow Up Care Please Follow Up With: Nuno Morris MD When: Call [phone] for an appointment Test Results: Test results from this visit will be discussed in further detail at your follow-up appointment, if applicable. Discharge Plan Admission Primary Reason for Your Visit: Laser of stones Attending Provider: Nuno Morris Primary Care Provider: Suraj Johnson Instructions Print Language: Lithuanian Discharge Orders/Prescriptions Prescriptions: New ciprofloxacin HCl [Cipro] 500 mg tablet 500 mg PO BID Qty: 10 0RF tamsulosin [Flomax] 0.4 mg capsule 0.4 mg PO QHS Qty: 10 0RF phenazopyridine [Pyridium] 100 mg tablet 100 mg PO TID PRN (Reason: pain) Qty: 20 0RF ibuprofen 600 mg tablet 600 mg PO Q6H PRN (Reason: fever or pain) Qty: 20 0RF Continued fenofibrate 40 mg tablet 145 mg PO DAILY sotalol 120 mg tablet 120 mg PO BID rosuvastatin 10 mg tablet 10 mg PO DAILY cyclobenzaprine 10 mg tablet 10 mg PO BID PRN (Reason: spasms) omeprazole 40 MG capsule 40 mg PO QHS folic acid 1 MG tablet 1 mg PO BID nfzrdixq-rzn-LW-lycopen-lutein 1 EACH tablet 1 ea PO DAILY omega-3 fatty acids-fish oil 1 EACH capsule 1 ea PO DAILY lutein 20 MG tablet 20 mg PO DAILY adalimumab 40 mg/0.8 mL syringe kit 40 mg SC Q2W Patient Comments: PT TAKES ON TUESDAYS Rx Instructions: every other week pregabalin 150 MG capsule 150 mg PO BID glipizide 5 MG tablet 5 mg PO BID Qty: 0 0RF leucovorin calcium 15 mg Tablet 15 mg PO .QWEEK Patient Comments: TUESDAY lisinopril 40 mg Tablet 40 mg PO DAILY ezetimibe 10 mg Tablet 5 mg PO DAILY methotrexate sodium 2.5 MG tablet 15 mg PO Q7D Patient Comments: ON FRIDAYS apixaban 2.5 mg tablet 5 mg PO BID Patient Comments: LAST DOSE 11/04 SECOND DOSE prednisone 10 mg tablet 10 mg PO DAILY PRN (Reason: ARTHRITIS) tramadol 50 mg tablet 50 mg PO TID PRN PRN (Reason: pain) amoxicillin-pot clavulanate 875-125 mg tablet 1 tab PO BID Patient Comments: WILL BE SONE WITH ABX 11/05 Referrals / Follow Up: Suraj Johnson MD [Primary Care Provider] - Disposition Disposition (needs filled in before D/C Order can be placed): Home, Self Care
[2023-11-09] MEDS: Cefazolin 3 GM in 0.9% Normal Saline (100mL Bag) 100 ML IV (09:37)
--- NOTE | 2023-11-09 11:06 | OP.PCM_ITS ---
Report of Operation Date of Procedure: 11/09/23 Pre-Operative Diagnosis: Bilateral renal calculi Post-Operative Diagnosis: The same Surgery/Procedure Performed:: Cystoscopy left ureteroscopy laser lithotripsy of stones multiple and large and left stent placement, right balloon dilation of the ureter right ureteroscopy laser lithotripsy of stone and right stent placement Description of Surgical Findings:: 78-year-old male has got bilateral large renal calculi on both sides more stones on the left side and then the right side we plan to proceed with laser lithotripsy today to laser both the stones out. He will need stent on both sides to Patient was taken back to the operating room at this with induction of anesthesia he was placed in dorsal lithotomy position penis and testicles were prepped and draped in usual sterile fashion went in the bladder with a 21 [place] rigid ureteral scope and then cannulated the left ureteral orifice and then over the wire left the wire in place and went in with a flexible ureteroscope was able to get into the ureter quite easily and then went all the way to the kidney and the kidney I then proceeded with inspection down that there was a pile of large stones in the upper pole of the left kidney proceeded with laser lithotripsy using thulium laser 200 ?m and reset it to renal settings dusting setting with 0.2 J and 100 Hz this for stone was then lasered completely and was dusted into the tiny little pieces successfully. I then worked my way to another stone again this was also dusted completely and then finally went into the lower pole stone and there was a very large lower pole stone that was probably embedded in the parenchyma you could see the edge of the stone poking out the stone was quite difficult to reach but eventually I was able to laser the stone using the thulium laser completely lateral lower fragments in the kidney but no major fragments seen I then worked my way down the ureter and put a wire up on that side and then placed a stent on the left side we then went to the right side I did balloon dilate the distal right ureter since it was quite small and would allow for ureteroscopy and then once this was done I balloon dilated twice and second time was able to go up with the flexible ureteroscope and then guided into the renal pelvis on the right side and there was a 1 cm stone in the renal pelvis this was lasered completely with the thulium laser using a dusting setting after successfully lasering the stone on that side then we backed down the ureter put a wire up the stent on the right side drained the bladder patient has bilateral stents in place successful lasering of multiple large stones in the left kidney and lasering of the stone in the right kidney. No follow-up in 1 week for cystoscopy stent removal in the office. Surgeon: Nuno Morris Type of Anesthesia: General Drains: stent b/l Admit VTE Documentation VTE Present on Admission: No VTE Mechan Device Prophylaxis: SCD's VTE Pharm Prophylaxis ordered?: No
[2023-11-09] MEDS: Ketorolac 30 MG/ML Syringe IM (12:16)
[2023-11-09] MEDS: Acetaminophen 325 MG Tablet 650 MG PO (13:24)
== END 2023-11-09 13:53 | disposition home or self-care (01) ==
LOC: SDC 07:44 → AC 07:45
PROVIDERS: PCP Family Medicine; Visit Provider Urology
PROC: 0TJ98ZZ Inspection of Ureter, Via Natural or Artificial Opening Endoscopic (ICD-10-PCS; CPT 52352; principal; 2023-11-09 09:30)
DX: N20.0 Calculus of kidney (principal); I48.0 Paroxysmal atrial fibrillation; E11.9 Type 2 diabetes mellitus without complications; I10 Essential (primary) hypertension; G47.33 Obstructive sleep apnea (adult) (pediatric); Z79.899 Other long term (current) drug therapy; Z79.84 Long term (current) use of oral hypoglycemic drugs; Z79.01 Long term (current) use of anticoagulants; Z87.891 Personal history of nicotine dependence; Z87.442 Personal history of urinary calculi
CPT/HCPCS: 52356; 82962; J7120; C2617; J2405

== ENCOUNTER → 2023-11-17 | Outpatient (CLI) | payer MEDICARE, SELFPAY ==
[2023-11-17 15:54] LABS: Absolute Lymphocyte Count 1.49 X10^3/uL (0.83-4.51); Absolute Neutrophil Count 3.6 X10^3/uL (2.0-7.7); Basophil# 0.04 X10^3/uL; Basophil% 0.7 % (0-1); Eosinophil# 0.22 X10^3/uL; Eosinophils% 3.7 % (0-5); Hematocrit 43.6 % (40-54); Hemoglobin 13.6 g/dL (13.0-16.5); Lymphocyte # 1.49 X10^3/ul (0.83-4.51); Lymphocyte % 24.8 % (19-41); Mean Corp Hgb Conc 31.2 g/dL (32-36); Mean Corpuscular Hgb 29.1 pg (27.0-32.0); Mean Corpuscular Volume 93.4 fL (80-94); Mean Platelet Vol. 11.1 fl (6.2-12.0); Monocyte# 0.65 X10^3/uL; Monocyte% 10.8 % (0-10); NRBC Flagged by Analyzer 0 % (0-5); Neutrophil # 3.56 X10^3/uL (2.7-7.7); Platelet Count 173 K/mm3 (150-450); RBC Distribution Width CV 18.6 % (11.6-14.6); RBC Distribution Width SD 62.7 fl (35.1-43.9); Red Blood Count 4.67 M/mm3 (4.6-6.2)
[2023-11-17 16:17] LABS: ALB/GLOB Ratio 0.8 RATIO (0.9-2.4); AST(SGOT) 30 U/L (15-37); Alanine Aminotransfer ALT/SGPT 30 U/L (16-61); Albumin, Serum 3.5 g/dL (3.2-5.0); Alkaline Phosphatase 58 U/L (45-117); Anion Gap 5 (5-15); BUN 23 mg/dL (7-18); Calcium,Total 9.5 mg/dL (8.5-10.1); Chloride 109 mmol/L (98-107); EST Glomerular Filtration Rate 77 mL/min (>60); Est Glom Filt Rate - Afr Amer 93 mL/min (>60); Globulin 4.2 g/dL (2.2-4.2); Glucose 105 mg/dL (74-106); Potassium 3.8 mmol/L (3.5-5.1); Protein, Total 7.7 g/dL (6.4-8.2); Sodium Level 140 mmol/L (136-145)
== END | disposition home or self-care (01) ==
LOC: MTLAB 12:56
PROVIDERS: PCP Family Medicine; Referring Provider Internal Medicine Rheumatology; Visit Provider Internal Medicine Rheumatology
DX: M06.00 Rheumatoid arthritis without rheumatoid factor, unspecified site (principal); M15.9 Polyosteoarthritis, unspecified; G56.03 Carpal tunnel syndrome, bilateral upper limbs; Z79.899 Other long term (current) drug therapy
CPT/HCPCS: 36415; 80053; 85025

== ENCOUNTER → 2024-02-08 | Outpatient (CLI) | payer MEDICARE, SELFPAY ==
[2024-02-08 15:11] LABS: Absolute Lymphocyte Count 1.69 X10^3/uL (0.83-4.51); Absolute Neutrophil Count 4.2 X10^3/uL (2.0-7.7); Basophil# 0.03 X10^3/uL; Basophil% 0.4 % (0-1); Eosinophil# 0.08 X10^3/uL; Eosinophils% 1.2 % (0-5); Hematocrit 37.8 % (40-54); Hemoglobin 12.6 g/dL (13.0-16.5); Lymphocyte # 1.69 X10^3/ul (0.83-4.51); Lymphocyte % 24.3 % (19-41); Mean Corp Hgb Conc 33.3 g/dL (32-36); Mean Corpuscular Hgb 32.6 pg (27.0-32.0); Mean Corpuscular Volume 97.9 fL (80-94); Mean Platelet Vol. 11.2 fl (6.2-12.0); Monocyte# 0.89 X10^3/uL; Monocyte% 12.8 % (0-10); NRBC Flagged by Analyzer 0 % (0-5); Neutrophil # 4.17 X10^3/uL (2.7-7.7); Platelet Count 146 K/mm3 (150-450); RBC Distribution Width CV 14.6 % (11.6-14.6); RBC Distribution Width SD 51.8 fl (35.1-43.9); Red Blood Count 3.86 M/mm3 (4.6-6.2)
[2024-02-08 15:43] LABS: ALB/GLOB Ratio 0.8 RATIO (0.9-2.4); AST(SGOT) 21 U/L (15-37); Alanine Aminotransfer ALT/SGPT 23 U/L (16-61); Albumin, Serum 3.2 g/dL (3.2-5.0); Alkaline Phosphatase 51 U/L (45-117); Anion Gap 6 (5-15); BUN 19 mg/dL (7-18); BUN/Creat Ratio 22.9 RATIO (10-20); Calcium,Total 9.2 mg/dL (8.5-10.1); Chloride 106 mmol/L (98-107); Creatinine, Serum 0.83 mg/dL (0.70-1.30); EST Glomerular Filtration Rate 96 mL/min (>60); Est Glom Filt Rate - Afr Amer 116 mL/min (>60); Glucose 110 mg/dL (74-106); Protein, Total 7.2 g/dL (6.4-8.2); Sodium Level 137 mmol/L (136-145)
== END | disposition home or self-care (01) ==
LOC: MTLAB 13:06
PROVIDERS: PCP Family Medicine; Referring Provider Internal Medicine Rheumatology; Visit Provider Internal Medicine Rheumatology
DX: M06.00 Rheumatoid arthritis without rheumatoid factor, unspecified site (principal); Z79.899 Other long term (current) drug therapy
CPT/HCPCS: 36415; 80053; 85025

== ENCOUNTER → 2024-05-01 | Outpatient (CLI) | payer MEDICARE, SELFPAY ==
[2024-05-01 15:04] LABS: Absolute Lymphocyte Count 1.56 X10^3/uL (0.83-4.51); Absolute Neutrophil Count 2.2 X10^3/uL (2.0-7.7); Basophil# 0.03 X10^3/uL; Basophil% 0.6 % (0-1); Eosinophils% 2.1 % (0-5); Hematocrit 41.8 % (40-54); Hemoglobin 14.2 g/dL (13.0-16.5); Lymphocyte # 1.56 X10^3/ul (0.83-4.51); Mean Corpuscular Hgb 33.1 pg (27.0-32.0); Mean Corpuscular Volume 97.4 fL (80-94); Mean Platelet Vol. 10.8 fl (6.2-12.0); Monocyte# 0.79 X10^3/uL; Monocyte% 16.7 % (0-10); NRBC Flagged by Analyzer 0 % (0-5); Neutrophil # 2.21 X10^3/uL (2.7-7.7); Neutrophil % 46.8 % (47-70); Platelet Count 123 K/mm3 (150-450); RBC Distribution Width CV 13.1 % (11.6-14.6); RBC Distribution Width SD 46.8 fl (35.1-43.9); Red Blood Count 4.29 M/mm3 (4.6-6.2); White Blood Count 4.7 K/mm3 (4.4-11.0)
[2024-05-01 18:14] LABS: AST(SGOT) 30 U/L (15-37); Alanine Aminotransfer ALT/SGPT 38 U/L (16-61); Albumin, Serum 3.7 g/dL (3.2-5.0); Alkaline Phosphatase 61 U/L (45-117); Anion Gap 7 (5-15); BUN 19 mg/dL (7-18); BUN/Creat Ratio 22.8 RATIO (10-20); Calcium,Total 8.9 mg/dL (8.5-10.1); Chloride 109 mmol/L (98-107); Creatinine, Serum 0.83 mg/dL (0.70-1.30); EST Glomerular Filtration Rate 95 mL/min (>60); Est Glom Filt Rate - Afr Amer 115 mL/min (>60); Globulin 3.6 g/dL (2.2-4.2); Glucose 93 mg/dL (74-106); Protein, Total 7.3 g/dL (6.4-8.2); Sodium Level 140 mmol/L (136-145)
== END | disposition home or self-care (01) ==
LOC: MTLAB 13:53
PROVIDERS: PCP Family Medicine; Referring Provider Internal Medicine Rheumatology; Visit Provider Internal Medicine Rheumatology
DX: M06.00 Rheumatoid arthritis without rheumatoid factor, unspecified site (principal); Z79.899 Other long term (current) drug therapy
CPT/HCPCS: 36415; 80053; 85025

== ENCOUNTER → 2024-08-01 | Outpatient (CLI) | payer MEDICARE, SELFPAY ==
[2024-08-01 18:02] LABS: Absolute Lymphocyte Count 1.55 X10^3/uL (0.83-4.51); Absolute Neutrophil Count 2.1 X10^3/uL (2.0-7.7); Basophil# 0.03 X10^3/uL; Basophil% 0.6 % (0-1); Eosinophil# 0.18 X10^3/uL; Eosinophils% 3.9 % (0-5); Hematocrit 43.9 % (40-54); Hemoglobin 14.8 g/dL (13.0-16.5); Lymphocyte # 1.55 X10^3/ul (0.83-4.51); Lymphocyte % 33.5 % (19-41); Mean Corp Hgb Conc 33.7 g/dL (32-36); Mean Corpuscular Hgb 33.3 pg (27.0-32.0); Mean Corpuscular Volume 98.9 fL (80-94); Mean Platelet Vol. 11.6 fl (6.2-12.0); Monocyte# 0.68 X10^3/uL; Monocyte% 14.7 % (0-10); NRBC Flagged by Analyzer 0 % (0-5); Neutrophil # 2.13 X10^3/uL (2.7-7.7); Neutrophil % 46.2 % (47-70); Platelet Count 116 K/mm3 (150-450); RBC Distribution Width CV 13.2 % (11.6-14.6); RBC Distribution Width SD 46.9 fl (35.1-43.9); Red Blood Count 4.44 M/mm3 (4.6-6.2); White Blood Count 4.6 K/mm3 (4.4-11.0)
[2024-08-01 18:10] LABS: AST(SGOT) 35 U/L (15-37); Alanine Aminotransfer ALT/SGPT 35 U/L (16-61); Albumin, Serum 3.6 g/dL (3.2-5.0); Alkaline Phosphatase 59 U/L (45-117); Anion Gap 7 (5-15); BUN 15 mg/dL (7-18); BUN/Creat Ratio 17.3 RATIO (10-20); Calcium,Total 8.8 mg/dL (8.5-10.1); Chloride 108 mmol/L (98-107); Creatinine, Serum 0.87 mg/dL (0.70-1.30); EST Glomerular Filtration Rate 91 mL/min (>60); Est Glom Filt Rate - Afr Amer 110 mL/min (>60); Globulin 3.6 g/dL (2.2-4.2); Glucose 124 mg/dL (74-106); Protein, Total 7.2 g/dL (6.4-8.2); Sodium Level 138 mmol/L (136-145)
== END | disposition home or self-care (01) ==
LOC: MTLAB 13:42
PROVIDERS: PCP Family Medicine; Referring Provider Internal Medicine Rheumatology; Visit Provider Internal Medicine Rheumatology
DX: M06.00 Rheumatoid arthritis without rheumatoid factor, unspecified site (principal); Z79.899 Other long term (current) drug therapy
CPT/HCPCS: 36415; 80053; 85025

== ENCOUNTER → 2024-10-25 | Outpatient (CLI) | payer MEDICARE, SELFPAY ==
[2024-10-25 17:51] LABS: Absolute Neutrophil Count 2.2 X10^3/uL (2.0-7.7); Basophil# 0.04 X10^3/uL; Basophil% 0.8 % (0-1); Eosinophil# 0.22 X10^3/uL; Eosinophils% 4.5 % (0-5); Hematocrit 40.4 % (40-54); Hemoglobin 13.9 g/dL (13.0-16.5); Lymphocyte % 28.5 % (19-41); Mean Corp Hgb Conc 34.4 g/dL (32-36); Mean Corpuscular Hgb 33.9 pg (27.0-32.0); Mean Corpuscular Volume 98.5 fL (80-94); Mean Platelet Vol. 11.4 fl (6.2-12.0); Monocyte# 0.92 X10^3/uL; Monocyte% 18.7 % (0-10); NRBC Flagged by Analyzer 0 % (0-5); Neutrophil # 2.23 X10^3/uL (2.7-7.7); Neutrophil % 45.5 % (47-70); Platelet Count 119 K/mm3 (150-450); RBC Distribution Width SD 46.8 fl (35.1-43.9); White Blood Count 4.9 K/mm3 (4.4-11.0)
[2024-10-25 18:07] LABS: ALB/GLOB Ratio 1.5 RATIO (0.9-2.4); AST(SGOT) 35 U/L (<=37); Alanine Aminotransfer ALT/SGPT 29 U/L (<=46); Albumin, Serum 3.8 g/dL (3.4-4.8); Alkaline Phosphatase 51 U/L (40-129); Anion Gap 11 (5-15); BUN 16 mg/dL (4-19); BUN/Creat Ratio 18.6 RATIO (10-20); Calcium,Total 8.9 mg/dL (7.6-11.0); Carbon Dioxide 22.6 mmol/L (21.0-32.0); Chloride 105 mmol/L (98-108); Creatinine, Serum 0.87 mg/dL (0.70-1.20); EST Glomerular Filtration Rate 88 (>60); Globulin 2.6 g/dL (2.2-4.2); Glucose 91 mg/dL (70-99); Potassium 4.1 mmol/L (3.3-5.1); Protein, Total 6.5 g/dL (5.9-8.4); Sodium Level 139 mmol/L (133-145)
== END | disposition home or self-care (01) ==
LOC: MTLAB 15:36
PROVIDERS: PCP Family Medicine; Referring Provider Internal Medicine Rheumatology; Visit Provider Internal Medicine Rheumatology
DX: M06.00 Rheumatoid arthritis without rheumatoid factor, unspecified site (principal); M15.9 Polyosteoarthritis, unspecified; Z79.899 Other long term (current) drug therapy
CPT/HCPCS: 36415; 80053; 85025

== ENCOUNTER → 2025-01-14 | Outpatient (CLI) | payer MEDICARE, SELFPAY ==
[2025-01-14 19:50] LABS: AST(SGOT) 43 U/L (<=37); Alanine Aminotransfer ALT/SGPT 37 U/L (<=46); Albumin, Serum 4.3 g/dL (3.4-4.8); Alkaline Phosphatase 51 U/L (40-129); Anion Gap 12 (5-15); BUN 21 mg/dL (4-19); BUN/Creat Ratio 26.1 RATIO (10-20); Calcium,Total 9.4 mg/dL (7.6-11.0); Carbon Dioxide 23.5 mmol/L (21.0-32.0); Chloride 105 mmol/L (98-108); Globulin 2.8 g/dL (2.2-4.2); Glucose 152 mg/dL (70-99); Potassium 4.9 mmol/L (3.3-5.1)
[2025-01-14 19:58] LABS: Hematocrit 44.4 % (40-54); Hemoglobin 14.5 g/dL (13.0-16.5); Immature Granulocytes Count 0.030 X10^3/uL (0.0-0.0); Mean Corp Hgb Conc 32.7 g/dL (32-36); Mean Corpuscular Volume 100.7 fL (80-94); Mean Platelet Vol. 11.8 fl (6.2-12.0); NRBC Flagged by Analyzer 0 % (0-5); Platelet Count 132 K/mm3 (150-450); RBC Distribution Width CV 13.0 % (11.6-14.6); RBC Distribution Width SD 48.2 fl (35.1-43.9); Red Blood Count 4.41 M/mm3 (4.6-6.2); White Blood Count 4.1 K/mm3 (4.4-11.0)
== END | disposition home or self-care (01) ==
LOC: MTLAB 16:19
PROVIDERS: PCP Family Medicine; Referring Provider Internal Medicine Rheumatology; Visit Provider Internal Medicine Rheumatology
DX: M06.00 Rheumatoid arthritis without rheumatoid factor, unspecified site (principal); M15.9 Polyosteoarthritis, unspecified; G56.03 Carpal tunnel syndrome, bilateral upper limbs; Z79.899 Other long term (current) drug therapy
CPT/HCPCS: 36415; 80053; 85025

== ENCOUNTER → 2025-02-06 | Outpatient (CLI) | payer MEDICARE, SELFPAY ==
--- NOTE | 2025-02-06 11:14 | US_ITS ---
PROCEDURE: LIVER 02/06/2025 REASON FOR EXAM: ELEVATED LI ENZYMES COMPARISON: Prior CT scan of the abdomen and pelvis dated October 20, 2023. FINDINGS: Liver: Diffusely echogenic suggesting fatty infiltration. Hepatomegaly. The liver measures 21 cm. Gallbladder: Surgically absent. Common bile duct: Normal measuring 5 mm. . Pancreas: Normal Other: The kidney measures 13.3 cm 6.9 cm 6 cm. Renal cortex measures 1.5 cm. Several cysts are seen within the right kidney. The largest cyst measures 3.6 cm x 3.4 cm x 3.2 cm. US/Liver IMPRESSION: Hepatomegaly and diffuse fatty infiltration of the liver. Status post cholecystectomy. Right renal cysts. Reading Location: [id number]
== END | disposition home or self-care (01) ==
PROVIDERS: PCP Family Medicine; Referring Provider Internal Medicine Rheumatology; Visit Provider Internal Medicine Rheumatology
DX: R74.01 Elevation of levels of liver transaminase levels (principal); M06.00 Rheumatoid arthritis without rheumatoid factor, unspecified site; Z79.899 Other long term (current) drug therapy
CPT/HCPCS: 76705

== ENCOUNTER → 2025-03-13 | Outpatient (CLI) | payer MEDICARE, SELFPAY ==
[2025-03-13 18:39] LABS: AST(SGOT) 40 U/L (<=37); Alanine Aminotransfer ALT/SGPT 40 U/L (<=46); Albumin, Serum 4.1 g/dL (3.4-4.8); Alkaline Phosphatase 47 U/L (40-129); Anion Gap 13 (5-15); BUN 18 mg/dL (4-19); BUN/Creat Ratio 23.2 RATIO (10-20); Calcium,Total 9.1 mg/dL (7.6-11.0); Carbon Dioxide 20.9 mmol/L (21.0-32.0); Chloride 107 mmol/L (98-108); Globulin 2.7 g/dL (2.2-4.2); Glucose 90 mg/dL (70-99); Potassium 4.3 mmol/L (3.3-5.1)
[2025-03-13 18:51] LABS: Hematocrit 42.9 % (40-54); Hemoglobin 14.8 g/dL (13.0-16.5); Immature Granulocytes Count 0.080 X10^3/uL (0.0-0.0); Mean Corp Hgb Conc 34.5 g/dL (32-36); Mean Corpuscular Volume 99.3 fL (80-94); Mean Platelet Vol. 11.8 fl (6.2-12.0); NRBC Flagged by Analyzer 0 % (0-5); Platelet Count 117 K/mm3 (150-450); RBC Distribution Width CV 12.9 % (11.6-14.6); RBC Distribution Width SD 47.2 fl (35.1-43.9); Red Blood Count 4.32 M/mm3 (4.6-6.2); White Blood Count 5.4 K/mm3 (4.4-11.0)
== END | disposition home or self-care (01) ==
LOC: MTLAB 14:03
PROVIDERS: PCP Family Medicine; Referring Provider Internal Medicine Rheumatology; Visit Provider Internal Medicine Rheumatology
DX: M06.00 Rheumatoid arthritis without rheumatoid factor, unspecified site (principal); Z79.899 Other long term (current) drug therapy
CPT/HCPCS: 36415; 80053; 85025

== ENCOUNTER → 2025-05-29 | Outpatient (CLI) | payer MEDICARE, SELFPAY ==
[2025-05-29 15:24] LABS: Hematocrit 34.4 % (40-54); Hemoglobin 10.8 g/dL (13.0-16.5); Immature Granulocytes Count 0.060 X10^3/uL (0.0-0.0); Mean Corp Hgb Conc 31.4 g/dL (32-36); Mean Corpuscular Volume 95.8 fL (80-94); Mean Platelet Vol. 10.9 fl (6.2-12.0); NRBC Flagged by Analyzer 0 % (0-5); Platelet Count 188 K/mm3 (150-450); RBC Distribution Width CV 13.2 % (11.6-14.6); RBC Distribution Width SD 46.5 fl (35.1-43.9); Red Blood Count 3.59 M/mm3 (4.6-6.2); White Blood Count 5.5 K/mm3 (4.4-11.0)
[2025-05-29 16:15] LABS: AST(SGOT) 24 U/L (<=37); Alanine Aminotransfer ALT/SGPT 12 U/L (<=46); Albumin, Serum 3.8 g/dL (3.4-4.8); Alkaline Phosphatase 59 U/L (40-129); Anion Gap 11 (5-15); BUN 21 mg/dL (4-19); BUN/Creat Ratio 26.3 RATIO (10-20); Calcium,Total 8.4 mg/dL (7.6-11.0); Carbon Dioxide 23.5 mmol/L (21.0-32.0); Chloride 108 mmol/L (98-108); Globulin 2.6 g/dL (2.2-4.2); Glucose 80 mg/dL (70-99); Potassium 4.3 mmol/L (3.3-5.1)
== END | disposition home or self-care (01) ==
LOC: MTLAB 13:18
PROVIDERS: PCP Family Medicine; Referring Provider Internal Medicine Rheumatology; Visit Provider Internal Medicine Rheumatology
DX: M06.00 Rheumatoid arthritis without rheumatoid factor, unspecified site (principal); M15.9 Polyosteoarthritis, unspecified; Z79.899 Other long term (current) drug therapy
CPT/HCPCS: 36415; 80053; 85025